=== PATIENT | female | born 1945 | race Caucasian/White ===

== ENCOUNTER → 2016-05-27 | Outpatient (CLI) | payer MEDICARE | END | disposition home or self-care (01) | LOC: LABWHC1 11:07 | PROVIDERS: ATTEND Surgery | DX: E21.3 Hyperparathyroidism, unspecified (principal); Z90.89 Acquired absence of other organs | CPT/HCPCS: 36415; 82310; 83970 ==

== ENCOUNTER → 2016-09-09 | Outpatient (CLI) | payer MEDICARE ==
--- NOTE | 2016-09-09 15:19 | XR ---
EXAMINATION TYPE: XR chest 2V DATE OF EXAM: 09/09/2016 COMPARISON: 12/11/2015 and 11/11/2014 HISTORY: 70-year-old female solitary pulmonary nodule TECHNIQUE: Frontal and lateral views FINDINGS: Heart is upper limits of normal in size. Aorta and pulmonary vasculature within normal limits. A 1.3 cm high density nodule persists at the right base without significant interval change. There may be c entral calcification present. No consolidation or pleural effusion. IMPRESSION: 1. Heart at the upper limits of normal in size. 2. Right basilar pulmonary nodule seems to have a central calcification and is relatively similar to 11/11/2014. Benign etiology such as a calcified granuloma is favored.
== END ==
LOC: RADXRMAIN 11:46
PROVIDERS: ATTEND Family Medicine
DX: R91.1 Solitary pulmonary nodule (principal)
CPT/HCPCS: 71020

== ENCOUNTER → 2017-01-20 | Outpatient (CLI) | payer MEDICARE ==
--- NOTE | 2017-01-20 13:07 | XR ---
EXAMINATION TYPE: XR Hip Bilateral and AP pelvis DATE OF EXAM: 01/20/2017 COMPARISON: NONE HISTORY: 71 year-old female right hip pain TECHNIQUE: AP view pelvis and 2 views each hip FINDINGS: Moderate uniform joint space narrowing within the left greater than right hips. There is prominent ma rginal spurring and subchondral sclerosis. Pubic symphysis and SI joints appear intact. No acute frac ture, subluxation, or dislocation. IMPRESSION: Moderate left greater than right bilateral hip osteoarthrosis. No acute osseous abnormality seen.
== END ==
LOC: RADXRMAIN 10:47
PROVIDERS: ATTEND Family Medicine
DX: M16.0 Bilateral primary osteoarthritis of hip (principal)
CPT/HCPCS: 73521

== ENCOUNTER → 2017-06-23 | Outpatient (CLI) | payer MEDICARE ==
--- NOTE | 2017-06-24 13:25 | MM ---
Reason for exam: screening (asymptomatic). Last mammogram was performed 1 year and 8 months ago. History: Patient is postmenopausal. Physical Findings: A clinical breast exam by your physician is recommended on an annual basis and results should be correlated with mammographic findings. MG 3D Screening Mammo W/Cad Bilateral CC and MLO view(s) were taken. Prior study comparison: October 17, 2015, bilateral MG screening mammo w CAD. There are scattered fibroglandular densities. No significant changes when compared with prior studies. ASSESSMENT: Negative, BI-RAD 1 RECOMMENDATION: Routine screening mammogram of both breasts in 1 year.
== END | disposition home or self-care (01) ==
LOC: RADMAMWWP 15:38
PROVIDERS: ATTEND Family Medicine
DX: Z12.31 Encounter for screening mammogram for malignant neoplasm of breast (principal)
CPT/HCPCS: 77063; 77067

== ENCOUNTER → 2017-06-23 | Outpatient (CLI) | payer MEDICARE ==
[2017-06-23 17:29] LABS: T4, Free (Free Thyroxine) 1.26 ng/dL (0.78-2.19)
== END | disposition home or self-care (01) ==
LOC: LABWHC1 15:56
PROVIDERS: ATTEND Psychiatry & Neurology Neurology
DX: G45.9 Transient cerebral ischemic attack, unspecified (principal)
CPT/HCPCS: 36415; 80061; 84439; 84443; 84481

== ENCOUNTER → 2018-01-31 | Outpatient (CLI) | payer MEDICARE ==
[2018-01-31 11:53] LABS: Basophils # (A) 0.1 k/uL (0-0.2); Basophils % (A) 1 %; Eosinophils # (A) 0.1 k/uL (0-0.7); Eosinophils % (A) 1 %; HCT 44.4 % (34.0-46.0); HGB 14.1 gm/dL (11.4-16.0); Lymphocytes # (A) 1.9 k/uL (1.0-4.8); Lymphocytes % (A) 28 %; MCH 28.6 pg (25.0-35.0); MCHC 31.8 g/dL (31.0-37.0); MCV 89.9 fL (80.0-100.0); Monocytes # (A) 0.3 k/uL (0-1.0); Monocytes % (A) 4 %; Neutrophils # (A) 4.2 k/uL (1.3-7.7); Neutrophils % (A) 64 %; Platelet Count 222 k/uL (150-450); RBC 4.94 m/uL (3.80-5.40); RDW 13.2 % (11.5-15.5); WBC 6.6 k/uL (3.8-10.6)
--- NOTE | 2018-01-31 12:06 | XR ---
EXAMINATION TYPE: XR chest 2V DATE OF EXAM: 01/31/2018 COMPARISON: 09/09/16 HISTORY: Shortness of breath TECHNIQUE: Frontal and lateral views of the chest are obtained. FINDINGS: Scattered senescent parenchymal changes noted. Hyperinflation compatible with COPD. Stable right lowe r lobe granuloma. No evidence for infiltrate. No evidence for atelectasis. Heart size is stable. Mediastinal structures are stable and grossly unremarkable. No evidence for hilar prominence. Degenerative changes dorsal spine. IMPRESSION: 1. No evidence for acute pulmonary disease.
[2018-01-31 12:10] LABS: Albumin 4.3 g/dL (3.5-5.0); Calcium 9.7 mg/dL (8.4-10.2); Potassium 4.5 mmol/L (3.5-5.1); Total Bilirubin 0.5 mg/dL (0.2-1.3)
[2018-01-31 12:35] LABS: Partial Thromboplastin Time 24.1 sec (22.0-30.0); Prothrombin Time 9.7 sec (9.0-12.0)
== END | disposition home or self-care (01) ==
LOC: RADXRMAIN 11:10
PROVIDERS: ATTEND Family Medicine
DX: Z01.818 Encounter for other preprocedural examination (principal); Z01.812 Encounter for preprocedural laboratory examination
CPT/HCPCS: 36415; 71046; 80053; 85025; 85610; 85730

== ENCOUNTER → 2018-02-07 | Outpatient (CLI) | payer MEDICARE | END | disposition home or self-care (01) | LOC: LABPAT 10:54 | PROVIDERS: ATTEND Orthopaedic Surgery | DX: Z01.812 Encounter for preprocedural laboratory examination (principal); M16.11 Unilateral primary osteoarthritis, right hip | CPT/HCPCS: 36415; 86850; 86900; 86901; 87070 ==

== ENCOUNTER 2020-07-31 10:23 | Emergency (ER) | payer MEDICARE ==
[2020-07-31 10:34] VITALS: RESP 18; TEMP 97.8
--- NOTE | 2020-07-31 11:13 | ED ---
Recheck HPI - General Chief Complaint: Recheck/Abnormal Lab/Rx Stated Complaint: lab recheck/feels off Time Seen by Provider: 07/31/20 10:45 Source: patient, family Mode of arrival: ambulatory Limitations: no limitations - History of Present Illness Initial Comments: 74-year-old female with history of COPD, CVA, CAD, electrolyte imbalance, presents to the emergency department with a chief complaint of "feeling off". States her symptoms began about one day ago and she feels like there is achiness in her legs and arms. Patient states it is difficult to explain her feeling but she's had this twice before and her electrolyte levels were imbalance. States her calcium level was affected. States she recently had her parathyroid hormone checked and it was elevated. States she had parathyroid surgery at the [facility]. She denies any chest pain, shortness of breath, one- sided weakness or paresthesias. Patient states there is no headaches, visual changes, chest pain or shortness of breath. Denies any obstructive or infectious urinary symptoms. Denies fevers or chills. Had covid-19ld vaccine in April. Daughter is concerned that the patient is experiencing anxiety and has stopped taking her anxiolytics. Patient has been going through quite a bit of stress over the last year - Related Data Home Medications Medication Instructions Recorded Confirmed amLODIPine BESYLATE [Norvasc] 5 mg PO BID 10/14/15 07/31/20 Citalopram Hydrobromide [CeleXA] 40 mg PO DAILY 02/23/17 07/31/20 Omeprazole 20 mg PO DAILY 02/23/17 07/31/20 Atorvastatin [Lipitor] 40 mg PO HS 07/31/20 07/31/20 Previous Rx's Medication Instructions Recorded Clopidogrel [Plavix] 75 mg PO DAILY #30 tab 02/24/17 Allergies Allergy/AdvReac Type Severity Reaction Status Date / Time zolpidem tartrate AdvReac Severe Hallucinati Verified 07/31/20 11:12 [From Marlene] ons Review of Systems ROS Statement: Those systems with pertinent positive or pertinent negative responses have been documented in the HPI. ROS Other: All systems not noted in ROS Statement are negative. Past Medical History Past Medical History: Coronary Artery Disease (CAD), Chest Pain / Angina, COPD, Hypertension, Syncope, Thyroid Disorder Additional Past Medical History / Comment(s): thyroid nodules, high calcium Last Myocardial Infarction Date:: 12/2014 History of Any Multi-Drug Resistant Organisms: None Reported Past Surgical History: Heart Catheterization With Stent Additional Past Surgical History / Comment(s): cyst removed from back, heart cath with a stent placed 12/2014. parathyroid removal Past Anesthesia/Blood Transfusion Reactions: No Reported Reaction Date of Last Stent Placement:: 12/03/2014 Past Psychological History: Anxiety, Depression Smoking Status: Current every day smoker Past Alcohol Use History: Occasional, Rare Past Drug Use History: None Reported - Past Family History Father Family Medical History: No Reported History Additional Family Medical History / Comment(s): FATHER AT AGE 70. PT UNSURE WHAT EXACTLY HE FROM. Mother Family Medical History: Congestive Heart Failure (CHF) Additional Family Medical History / Comment(s): MOTHER AT AGE 91 YRS. General Exam Limitations: no limitations Course Vital Signs 07/31/20 07/31/20 07/31/20 10:28 12:30 14:10 Temperature 97.8 F 97.8 F Pulse Rate 75 54 L 70 Respiratory 18 18 18 Rate Blood Pressure 188/63 157/88 142/76 O2 Sat by Pulse 96 96 96 Oximetry Medical Decision Making - Medical Decision Making 74-year-old female with history of COPD, CVA, CAD, electrolyte imbalance, presents to the emergency department with a chief complaint of "feeling off". On physical examination, patient is slightly anxious but is otherwise resting comfortably and answering questions appropriately. CBC, CMP and UA unremarkable. EKG showing no acute findings. A lateral imbalance is noted. Parathyroid hormone levels pending. No acute findings at this time there was just any requirements for admission. Patient does not have chest pain shortness of breath headaches or any focal deficits. Patient states she will follow up with her primary care physician tonight or tomorrow morning. Return p arameters were discussed with patient was understanding and agreeable. Case discussed with - Lab Data Result diagrams: 07/31/20 11:08 07/31/20 11:08 Lab Results 07/31/20 07/31/20 07/31/20 Range/Units 11:08 11:08 11:08 WBC 10.7 H (3.8-10.6) k/uL RBC 5.41 H (3.80-5.40) m/uL Hgb 15.0 (11.4-16.0) gm/dL Hct 47.3 H (34.0-46.0) % MCV 87.5 (80.0-100.0) fL MCH 27.8 (25.0-35.0) pg MCHC 31.7 (31.0-37.0) g/dL RDW 13.8 (11.5-15.5) % Plt Count 217 (150-450) k/uL MPV 9.0 Neutrophils % 80 % Lymphocytes % 15 % Monocytes % 3 % Eosinophils % 1 % Basophils % 1 % Neutrophils # 8.6 H (1.3-7.7) k/uL Lymphocytes # 1.6 (1.0-4.8) k/uL Monocytes # 0.3 (0-1.0) k/uL Eosinophils # 0.1 (0-0.7) k/uL Basophils # 0.1 (0-0.2) k/uL Sodium 139 (137-145) mmol/L Potassium 4.8 (3.5-5.1) mmol/L Chloride 104 (98-107) mmol/L Carbon Dioxide 27 (22-30) mmol/L Anion Gap 8 mmol/L BUN 15 (7-17) mg/dL Creatinine 0.77 (0.52-1.04) mg/dL Est GFR (CKD-EPI)AfAm 87 (>60 ml/min/1.73 sqM) Est GFR (CKD-EPI)NonAf 75 (>60 ml/min/1.73 sqM) Glucose 108 H (74-99) mg/dL Calcium 10.1 (8.4-10.2) mg/dL Phosphorus 3.5 (2.5-4.5) mg/dL Magnesium 2.0 (1.6-2.3) mg/dL Total Bilirubin 0.6 (0.2-1.3) mg/dL AST 26 (14-36) U/L ALT 15 (4-34) U/L Alkaline Phosphatase 126 (38-126) U/L Troponin I (0.000-0.034) ng/mL Total Protein 7.3 (6.3-8.2) g/dL Albumin 4.7 (3.5-5.0) g/dL Urine Color Light Yellow Urine Appearance Clear (Clear) Urine pH 6.0 (5.0-8.0) Ur Specific [place] 1.005 (1.001-1.035) Urine Protein Negative (Negative) Urine Glucose (UA) Negative (Negative) Urine Ketones Negative (Negative) Urine Blood Negative (Negative) Urine Nitrite Negative (Negative) Urine Bilirubin Negative (Negative) Urine Urobilinogen <2.0 (<2.0) mg/dL Ur Leukocyte Esterase Moderate H (Negative) Urine RBC <1 (0-5) /hpf Urine WBC <1 (0-5) /hpf Ur Squamous Epith Cells <1 (0-4) /hpf 07/31/20 Range/Units 11:08 WBC (3.8-10.6) k/uL RBC (3.80-5.40) m/uL Hgb (11.4-16.0) gm/dL Hct (34.0-46.0) % MCV (80.0-100.0) fL MCH (25.0-35.0) pg MCHC (31.0-37.0) g/dL RDW (11.5-15.5) % Plt Count (150-450) k/uL MPV Neutrophils % % Lymphocytes % % Monocytes % % Eosinophils % % Basophils % % Neutrophils # (1.3-7.7) k/uL Lymphocytes # (1.0-4.8) k/uL Monocytes # (0-1.0) k/uL Eosinophils # (0-0.7) k/uL Basophils # (0-0.2) k/uL Sodium (137-145) mmol/L Potassium (3.5-5.1) mmol/L Chloride (98-107) mmol/L Carbon Dioxide (22-30) mmol/L Anion Gap mmol/L BUN (7-17) mg/dL Creatinine (0.52-1.04) mg/dL Est GFR (CKD-EPI)AfAm (>60 ml/min/1.73 sqM) Est GFR (CKD-EPI)NonAf (>60 ml/min/1.73 sqM) Glucose (74-99) mg/dL Calcium (8.4-10.2) mg/dL Phosphorus (2.5-4.5) mg/dL Magnesium (1.6-2.3) mg/dL Total Bilirubin (0.2-1.3) mg/dL AST (14-36) U/L ALT (4-34) U/L Alkaline Phosphatase (38-126) U/L Troponin I <0.012 (0.000-0.034) ng/mL Total Protein (6.3-8.2) g/dL Albumin (3.5-5.0) g/dL Urine Color Urine Appearance (Clear) Urine pH (5.0-8.0) Ur Specific [place] (1.001-1.035) Urine Protein (Negative) Urine Glucose (UA) (Negative) Urine Ketones (Negative) Urine Blood (Negative) Urine Nitrite (Negative) Urine Bilirubin (Negative) Urine Urobilinogen (<2.0) mg/dL Ur Leukocyte Esterase (Negative) Urine RBC (0-5) /hpf Urine WBC (0-5) /hpf Ur Squamous Epith Cells (0-4) /hpf Disposition Clinical Impression: Generalized body aches Disposition: HOME SELF-CARE Condition: Stable Instructions (If sedation given, give patient instructions): Parathyroid Hormone (By injection), Hypocalcemia (ED) Additional Instructions: Follow-up with her primary care physician. Return to emergency department if symptoms worsen. Is patient prescribed a controlled substance at d/c from ED?: No Referrals: Miladis Blanton MD [Primary Care Provider] - 1-2 days Time of Disposition: 13:44
[2020-07-31 11:30] LABS: Basophils # (A) 0.1 k/uL (0-0.2); Basophils % (A) 1 %; Eosinophils # (A) 0.1 k/uL (0-0.7); Eosinophils % (A) 1 %; HCT 47.3 % (34.0-46.0); Lymphocytes # (A) 1.6 k/uL (1.0-4.8); Lymphocytes % (A) 15 %; MCH 27.8 pg (25.0-35.0); MCHC 31.7 g/dL (31.0-37.0); MCV 87.5 fL (80.0-100.0); Monocytes # (A) 0.3 k/uL (0-1.0); Monocytes % (A) 3 %; Neutrophils # (A) 8.6 k/uL (1.3-7.7); Neutrophils % (A) 80 %; Platelet Count 217 k/uL (150-450); RBC 5.41 m/uL (3.80-5.40); RDW 13.8 % (11.5-15.5); WBC 10.7 k/uL (3.8-10.6)
[2020-07-31 11:57] LABS: Albumin 4.7 g/dL (3.5-5.0); Appearance,Urine Clear (Clear); Bilirubin,Urine Negative (Negative); Blood,Urine Negative (Negative); Calcium 10.1 mg/dL (8.4-10.2); Color,Urine Light Yellow; Glucose,Urine (UA) Negative (Negative); Ketones,Urine Negative (Negative); Leukocyte Esterase,Urine Moderate (Negative); Nitrite,Urine Negative (Negative); Protein,Urine Negative (Negative); RBC,Urine <1 /hpf (0-5); Specific Gravity,Urine 1.005 (1.001-1.035); Squamous Epithelial Cell,Urine <1 /hpf (0-4); Total Bilirubin 0.6 mg/dL (0.2-1.3); Total Protein 7.3 g/dL (6.3-8.2); Urobilinogen,Urine <2.0 mg/dL (<2.0); WBC,Urine <1 /hpf (0-5)
[2020-07-31 12:05] LABS: Phosphorus 3.5 mg/dL (2.5-4.5); Potassium 4.8 mmol/L (3.5-5.1)
[2020-07-31 14:11] VITALS: BP 142/76; PULSE 70
== END 2020-07-31 14:11 | disposition home or self-care (01) ==
LOC: EC 10:23
DX: M79.10 Myalgia, unspecified site (principal); I25.10 Atherosclerotic heart disease of native coronary artery without angina pectoris; J44.9 Chronic obstructive pulmonary disease, unspecified; F17.200 Nicotine dependence, unspecified, uncomplicated; I10 Essential (primary) hypertension; E07.9 Disorder of thyroid, unspecified; Z95.5 Presence of coronary angioplasty implant and graft
CPT/HCPCS: 36415; 80053; 81001; 83735; 83970; 84100; 84484; 85025; 93005; 99283

== ENCOUNTER 2020-08-17 00:52 | Inpatient (IN) | payer MEDICARE ==
[2020-08-17 01:43] LABS: Basophils # (A) 0.1 k/uL (0-0.2); Basophils % (A) 1 %; Eosinophils # (A) 0.1 k/uL (0-0.7); Eosinophils % (A) 1 %; HCT 40.8 % (34.0-46.0); HGB 13.8 gm/dL (11.4-16.0); Lymphocytes # (A) 1.8 k/uL (1.0-4.8); Lymphocytes % (A) 20 %; MCH 29.2 pg (25.0-35.0); MCHC 33.9 g/dL (31.0-37.0); Mean Platelet Volume 8.9; Monocytes # (A) 0.5 k/uL (0-1.0); Monocytes % (A) 6 %; Neutrophils # (A) 6.5 k/uL (1.3-7.7); Neutrophils % (A) 72 %; Platelet Count 196 k/uL (150-450); RBC 4.75 m/uL (3.80-5.40); RDW 13.5 % (11.5-15.5); WBC 9.1 k/uL (3.8-10.6)
--- NOTE | 2020-08-17 01:46 | XR ---
EXAM: XR Chest, 2 Views CLINICAL HISTORY: ITS.REASON XR Reason: dysrhythmia TECHNIQUE: Frontal and lateral views of the chest. COMPARISON: 01/31/2018. FINDINGS: Lungs: A 0.8 cm calcified granuloma at the right lung base is noted, unchanged. No consolidative changes. Pleural space: No pleural effusions. No pneumothorax. Heart: Mild cardiomegaly. Mediastinum: Unremarkable. Bones/joints: Osteopenia. Moderate degenerative disc disease of the thoracic spine. IMPRESSION: 1. Cardiomegaly. 2. Osteopenia. 3. Calcified granuloma at the periphery of the right lung base, stable.
[2020-08-17 01:52] LABS: Albumin 4.2 g/dL (3.5-5.0); Calcium 9.8 mg/dL (8.4-10.2); Magnesium 1.9 mg/dL (1.6-2.3); Potassium 4.1 mmol/L (3.5-5.1); Total Bilirubin 0.3 mg/dL (0.2-1.3); Total Protein 6.5 g/dL (6.3-8.2)
[2020-08-17 02:11] LABS: INR 0.9 (<1.2); Partial Thromboplastin Time 22.2 sec (22.0-30.0); Prothrombin Time 9.8 sec (9.0-12.0)
[2020-08-17] MEDS ORDERED: ACETAMINOPHEN TAB 325 MG TAB PO PRN (04:08)
[2020-08-17] MEDS ORDERED: NALOXONE 0.4 MG/ML 1 ML VIAL IV PRN (04:08)
--- NOTE | 2020-08-17 04:55 | CT ---
EXAM: CT Head Without Intravenous Contrast CLINICAL HISTORY: ITS.REASON CT Reason: altered mental status TECHNIQUE: Axial computed tomography images of the head/brain without intravenous contrast. CTDI is 49.2 mGy and DLP is 1145.4 mGy-cm. This CT exam was performed using one or more of the following dose reduction techniques: automated exposure control, adjustment of the mA and/or kV according to patient size, and/or use of iterative reconstruction technique. COMPARISON: No relevant prior studies available. FINDINGS: Brain: Unremarkable. No hemorrhage. No significant white matter disease. No edema. Ventricles: Unremarkable. No ventriculomegaly. Bones/joints: Unremarkable. No acute fracture. Soft tissues: Unremarkable. Sinuses: Unremarkable as visualized. No acute sinusitis. Mastoid air cells: Unremarkable as visualized. No mastoid effusion. IMPRESSION: No acute intracranial process
--- NOTE | 2020-08-17 05:00 | ED ---
Altered Mental Status HPI - General Chief Complaint: Arrhythmia/Palpitations Stated Complaint: Palpitations Time Seen by Provider: 08/17/20 01:11 Source: patient Mode of arrival: ambulatory Limitations: no limitations - History of Present Illness MD Complaint: altered mental status, confusion -: days(s) Severity: moderate Consistency of Symptoms: getting worse Associated Symptoms: other (Palpitations) - Related Data Home Medications Medication Instructions Recorded Confirmed amLODIPine BESYLATE [Norvasc] 5 mg PO BID 10/14/15 08/17/20 Citalopram Hydrobromide [CeleXA] 40 mg PO DAILY 02/23/17 08/17/20 Omeprazole 20 mg PO DAILY 02/23/17 08/17/20 Atorvastatin [Lipitor] 40 mg PO HS 07/31/20 08/17/20 Ergocalciferol [Vitamin D2 (1250 1,250 mcg PO FR 08/17/20 08/17/20 Mcg = 37216 Iu)] Melatonin 20 mg PO HS PRN 08/17/20 08/17/20 Previous Rx's Medication Instructions Recorded Clopidogrel [Plavix] 75 mg PO DAILY #30 tab 02/24/17 Allergies Allergy/AdvReac Type Severity Reaction Status Date / Time zolpidem tartrate AdvReac Severe Hallucinati Verified 08/17/20 09:40 [From Marlene] ons Review of Systems ROS Statement: Those systems with pertinent positive or pertinent negative responses have been documented in the HPI. ROS Other: All systems not noted in ROS Statement are negative. Constitutional: Denies: fever, chills, weakness Eyes: Denies: vision change Respiratory: Denies: cough, dyspnea Cardiovascular: Reports: palpitations. Denies: chest pain, orthopnea, edema, syncope Gastrointestinal: Denies: abdominal pain, nausea, vomiting, diarrhea Genitourinary: Denies: dysuria, hematuria Musculoskeletal: Denies: back pain Skin: Denies: rash Neurological: Denies: headache Past Medical History Past Medical History: Coronary Artery Disease (CAD), Chest Pain / Angina, COPD, Hypertension, Syncope, Thyroid Disorder Additional Past Medical History / Comment(s): parathyroid nodules, high calcium Last Myocardial Infarction Date:: 12/2014 History of Any Multi-Drug Resistant Organisms: None Reported Past Surgical History: Heart Catheterization With Stent Additional Past Surgical History / Comment(s): cyst removed from back, heart cath with a stent placed 12/2014. parathyroid removal Past Anesthesia/Blood Transfusion Reactions: No Reported Reaction Date of Last Stent Placement:: 12/03/2014 Past Psychological History: Anxiety, Depression Smoking Status: Current some day smoker Past Alcohol Use History: Occasional, Rare Past Drug Use History: None Reported - Past Family History Father Family Medical History: No Reported History Additional Family Medical History / Comment(s): FATHER AT AGE 70. PT UNSURE WHAT EXACTLY HE FROM. Mother Family Medical History: Congestive Heart Failure (CHF) Additional Family Medical History / Comment(s): MOTHER AT AGE 91 YRS. General Exam Limitations: no limitations General appearance: alert, in no apparent distress Head exam: Present: atraumatic, normocephalic Eye exam: Present: normal appearance. Absent: scleral icterus, conjunctival injection ENT exam: Present: mucous membranes dry Neck exam: Present: normal inspection, full ROM Respiratory exam: Present: normal lung sounds bilaterally. Absent: respiratory distress, wheezes, rales, rhonchi, stridor Cardiovascular Exam: Present: regular rate, irregular rhythm, normal heart sounds. Absent: systolic murmur, diastolic murmur, rubs, gallop GI/Abdominal exam: Present: soft. Absent: distended, tenderness, guarding, rebound Extremities exam: Present: normal inspection, normal capillary refill. Absent: pedal edema, calf tenderness Back exam: Present: normal inspection. Absent: CVA tenderness (R), CVA tenderness (L) Neurological exam: Present: alert, CN II-XII intact. Absent: oriented X3 (Patient oriented to person and place could not state the date), motor sensory deficit Skin exam: Present: warm, dry, intact, normal color. Absent: rash Course Vital Signs 08/17/20 08/17/20 00:55 04:31 Pulse Rate 72 84 Respiratory 19 18 Rate Blood Pressure 156/84 152/83 O2 Sat by Pulse 97 98 Oximetry Medical Decision Making - Medical Decision Making Patient is 74-year-old woman brought to have evaluation for palpitations as well as altered mental status. There are no focal neurologic deficits, and at this point the differential does appear to be most likely some progressive dementia versus delirium. The patient will be admitted to have neurology consultation as well as psychiatric evaluation for further input. - Lab Data Result diagrams: 08/18/20 04:30 08/18/20 04:30 Lab Results 08/17/20 08/17/20 08/17/20 Range/Units 01:11 01:19 01:19 WBC 9.1 (3.8-10.6) k/uL RBC 4.75 (3.80-5.40) m/uL Hgb 13.8 (11.4-16.0) gm/dL Hct 40.8 (34.0-46.0) % MCV 86.0 (80.0-100.0) fL MCH 29.2 (25.0-35.0) pg MCHC 33.9 (31.0-37.0) g/dL RDW 13.5 (11.5-15.5) % Plt Count 196 (150-450) k/uL MPV 8.9 Neutrophils % 72 % Lymphocytes % 20 % Monocytes % 6 % Eosinophils % 1 % Basophils % 1 % Neutrophils # 6.5 (1.3-7.7) k/uL Lymphocytes # 1.8 (1.0-4.8) k/uL Monocytes # 0.5 (0-1.0) k/uL Eosinophils # 0.1 (0-0.7) k/uL Basophils # 0.1 (0-0.2) k/uL PT 9.8 (9.0-12.0) sec INR 0.9 (<1.2) APTT 22.2 (22.0-30.0) sec Sodium (137-145) mmol/L Potassium (3.5-5.1) mmol/L Chloride (98-107) mmol/L Carbon Dioxide (22-30) mmol/L Anion Gap mmol/L BUN (7-17) mg/dL Creatinine (0.52-1.04) mg/dL Est GFR (CKD-EPI)AfAm (>60 ml/min/1.73 sqM) Est GFR (CKD-EPI)NonAf (>60 ml/min/1.73 sqM) Glucose (74-99) mg/dL Calcium (8.4-10.2) mg/dL Magnesium (1.6-2.3) mg/dL Total Bilirubin (0.2-1.3) mg/dL AST (14-36) U/L ALT (4-34) U/L Alkaline Phosphatase (38-126) U/L Troponin I (0.000-0.034) ng/mL Total Protein (6.3-8.2) g/dL Albumin (3.5-5.0) g/dL TSH (0.465-4.680) mIU/L Urine Color Yellow Urine Appearance Clear (Clear) Urine pH 6.0 (5.0-8.0) Ur Specific [place] 1.018 (1.001-1.035) Urine Protein Negative (Negative) Urine Glucose (UA) Negative (Negative) Urine Ketones Negative (Negative) Urine Blood Negative (Negative) Urine Nitrite Negative (Negative) Urine Bilirubin Negative (Negative) Urine Urobilinogen <2.0 (<2.0) mg/dL Ur Leukocyte Esterase Large H (Negative) Urine RBC 1 (0-5) /hpf Urine WBC 25 H (0-5) /hpf Ur Squamous Epith Cells 1 (0-4) /hpf Urine Bacteria Rare H (None) /hpf Hyaline Casts 1 (0-2) /lpf Urine Mucus Few H (None) /hpf Coronavirus (PCR) (Not Detectd) 08/17/20 08/17/20 08/17/20 Range/Units 01:19 01:19 04:31 WBC (3.8-10.6) k/uL RBC (3.80-5.40) m/uL Hgb (11.4-16.0) gm/dL Hct (34.0-46.0) % MCV (80.0-100.0) fL MCH (25.0-35.0) pg MCHC (31.0-37.0) g/dL RDW (11.5-15.5) % Plt Count (150-450) k/uL MPV Neutrophils % % Lymphocytes % % Monocytes % % Eosinophils % % Basophils % % Neutrophils # (1.3-7.7) k/uL Lymphocytes # (1.0-4.8) k/uL Monocytes # (0-1.0) k/uL Eosinophils # (0-0.7) k/uL Basophils # (0-0.2) k/uL PT (9.0-12.0) sec INR (<1.2) APTT (22.0-30.0) sec Sodium 137 (137-145) mmol/L Potassium 4.1 (3.5-5.1) mmol/L Chloride 103 (98-107) mmol/L Carbon Dioxide 28 (22-30) mmol/L Anion Gap 6 mmol/L BUN 16 (7-17) mg/dL Creatinine 0.94 (0.52-1.04) mg/dL Est GFR (CKD-EPI)AfAm 68 (>60 ml/min/1.73 sqM) Est GFR (CKD-EPI)NonAf 59 (>60 ml/min/1.73 sqM) Glucose 119 H (74-99) mg/dL Calcium 9.8 (8.4-10.2) mg/dL Magnesium 1.9 (1.6-2.3) mg/dL Total Bilirubin 0.3 (0.2-1.3) mg/dL AST 21 (14-36) U/L ALT 10 (4-34) U/L Alkaline Phosphatase 117 (38-126) U/L Troponin I <0.012 (0.000-0.034) ng/mL Total Protein 6.5 (6.3-8.2) g/dL Albumin 4.2 (3.5-5.0) g/dL TSH 2.870 (0.465-4.680) mIU/L Urine Color Urine Appearance (Clear) Urine pH (5.0-8.0) Ur Specific [place] (1.001-1.035) Urine Protein (Negative) Urine Glucose (UA) (Negative) Urine Ketones (Negative) Urine Blood (Negative) Urine Nitrite (Negative) Urine Bilirubin (Negative) Urine Urobilinogen (<2.0) mg/dL Ur Leukocyte Esterase (Negative) Urine RBC (0-5) /hpf Urine WBC (0-5) /hpf Ur Squamous Epith Cells (0-4) /hpf Urine Bacteria (None) /hpf Hyaline Casts (0-2) /lpf Urine Mucus (None) /hpf Coronavirus (PCR) Not Detected (Not Detectd) - EKG Data -: EKG Interpreted by Me EKG shows normal: sinus rhythm (With sinus arrhythmia, rate 65 bpm), axis (Normal), intervals (Normal), QRS complexes (Normal) Rate: normal Interpretation: nonspecific ST-T wave changes Disposition Clinical Impression: Change in mental status Disposition: ADMITTED IP TO THIS [facility] Condition: Fair
[2020-08-17] MEDS: SODIUM CHLORIDE 0.9% 1,000 ML IV SCH (05:53)
[2020-08-17 06:28] LABS: Appearance,Urine Clear (Clear); Bacteria,Urine Rare /hpf; Bilirubin,Urine Negative (Negative); Blood,Urine Negative (Negative); Color,Urine Yellow; Glucose,Urine (UA) Negative (Negative); Hyaline Casts,Urine 1 /lpf (0-2); Ketones,Urine Negative (Negative); Leukocyte Esterase,Urine Large (Negative); Mucus,Urine Few /hpf; Nitrite,Urine Negative (Negative); Protein,Urine Negative (Negative); RBC,Urine 1 /hpf (0-5); Specific Gravity,Urine 1.018 (1.001-1.035); Squamous Epithelial Cell,Urine 1 /hpf (0-4); Urobilinogen,Urine <2.0 mg/dL (<2.0); WBC,Urine 25 /hpf (0-5)
[2020-08-17] MEDS ORDERED: FAMOTIDINE 20 MG TAB PO SCH (09:00)
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
--- NOTE | 2020-08-17 12:52 | P.CNNES ---
History of Present Illness Consult date: 08/17/20 Requesting physician: Jorge Kitchen Reason for Consult: altered mental status History of Present Illness: This is a 74-year-old woman with medical history of coronary artery disease, hypertension who presented emergency department on the 08/17/2020 for altered mental status. History was obtained from the medical record and the patient nurse since the patient's had a hard time to give me a good thorough history. According to the patient nurse she stated that she spoke with the patient's daughter and that she was told for the last 1 week she's a having visual hallucination of her son who is for the past 1 year. Upon talk to the patient she was tell me that about her having thoughts for the last couple days that her friend "Jazmin" is about to come and kill her but then within a minute or 2 she told me that her friend does not her to fly and she'll not never do that to her. Per the ED notes it is mentioned that the patient was also complaining of palpitation. Some of the workup consisted of: Initial vital signs: Blood pressure of 156/84, heart rate of 72, respiratory of 19, initial temperature of 98.2 Fahrenheit and pulse ox of 97% at room air. CT of the head is reported as no acute intracranial process. Personally reviewed the CT of the head and I felt the patient had [id number] the b ilateral frontal atrophy and I felt it slightly more than appropriate for her age. EKG is reported as sinus rhythm with markedly sinus arrhythmia. Nonspecific ST abnormality. Abnormal EKG. White blood cell is 9.2 which is normal. The basic chemistry panel is reviewed and seems unremarkable. The glucose is 119. TSH is 2.87. Chest x-ray is reported as cardiomegaly. Osteopenia. Calcified granuloma at the periphery of the right lung base. Stable Urinalysis is positive for large leukocyte esterase, urine white blood cells 25, urine bacteria was rare. Black virus PCR was not detected. Review of Systems Review of system: The 12 point system was reviewed and apparent positive and negative per HPI. Past Medical History Past Medical History: Coronary Artery Disease (CAD), Chest Pain / Angina, COPD, Hypertension, Syncope, Thyroid Disorder Additional Past Medical History / Comment(s): parathyroid nodules, high calcium Last Myocardial Infarction Date:: 12/2014 History of Any Multi-Drug Resistant Organisms: None Reported Past Surgical History: Heart Catheterization With Stent Additional Past Surgical History / Comment(s): cyst removed from back, heart cath with a stent placed 12/2014. parathyroid removal Past Anesthesia/Blood Transfusion Reactions: No Reported Reaction Date of Last Stent Placement:: 12/03/2014 Past Psychological History: Anxiety, Depression Smoking Status: Current some day smoker Past Alcohol Use History: Occasional, Rare Past Drug Use History: None Reported - Past Family History Father Family Medical History: No Reported History Additional Family Medical History / Comment(s): FATHER AT AGE 70. PT UNSURE WHAT EXACTLY HE FROM. Mother Family Medical History: Congestive Heart Failure (CHF) Additional Family Medical History / Comment(s): MOTHER AT AGE 91 YRS. Medications and Allergies Home Medications Medication Instructions Recorded Confirmed Type amLODIPine BESYLATE [Norvasc] 5 mg PO BID 10/14/15 08/17/20 History Citalopram Hydrobromide [CeleXA] 40 mg PO DAILY 02/23/17 08/17/20 History Omeprazole 20 mg PO DAILY 02/23/17 08/17/20 History Clopidogrel [Plavix] 75 mg PO DAILY #30 tab 02/24/17 08/17/20 Rx Atorvastatin [Lipitor] 40 mg PO HS 07/31/20 08/17/20 History Ergocalciferol [Vitamin D2 (1250 1,250 mcg PO FR 08/17/20 08/17/20 History Mcg = 73711 Iu)] Melatonin 20 mg PO HS PRN 08/17/20 08/17/20 History Allergies Allergy/AdvReac Type Severity Reaction Status Date / Time zolpidem tartrate AdvReac Severe Hallucinati Verified 08/17/20 09:40 [From Marlene] ons Physical Examination - Vital Signs Vital Signs: Vital Signs Temp Pulse Pulse Resp BP BP Pulse Ox 08/17/20 07:45 97.7 F 52 L 16 159/75 94 L 08/17/20 05:10 98.2 F 61 20 147/76 93 L 08/17/20 04:31 84 18 152/83 98 08/17/20 00:55 72 19 156/84 97 Intake and Output 08/16/20 08/17/20 08/17/20 22:59 06:59 14:59 Other: # Voids 1 Weight 76.657 kg GENERAL: The patient is lying in bed and is not in acute distress. CHEST: The heart rate is regular rate rhythm. No murmurs to auscultation. No carotid bruit bilaterally. LUNG: Clear to auscultation bilaterally no wheezing noted throughout. Not labored breathing. ABDOMEN/GI: Bowel sounds present in all 4 quadrants. No tenderness to palpation throughout. NEUROLOGICAL: Higher mental function: The patient is awake, alert, oriented to self, place and time. She correctly stated the state was [place]. Patient is following simple and complex commands. No aphasia and no neglect. Cranial nerves: The pupils are round, equal and reactive to light and accommodation. Visual massey are full to confrontation throughout. Extraocular movement is intact no nystagmus is noted. Facial sensation is normal to touch throughout. The facial strength is normal throughout. Hearing is normal bilaterally to hand rub. Tongue is midline and moved [id number] without any difficulty. No dysarthria is noted. Shoulder shrug is normal bilaterally. Motor: Gait is deferred. The strength is 5 over 5 throughout. Normal tone and bulk. Cerebellum: Normal finger to nose heel to chin bilaterally. Sensation: Sensation is normal to touch throughout. Reflexes (right/left): 2+ throughout. Plantars are downgoing bilaterally. Results - Laboratory Findings CBC and BMP: 08/17/20 01:19 08/17/20 01:19 Abnormal Lab Findings: Abnormal Labs 08/17/20 08/17/20 01:11 01:19 Glucose 119 H Ur Leukocyte Esterase Large H Urine WBC 25 H Urine Bacteria Rare H Urine Mucus Few H Assessment and Plan Assessment: Altered mental status for the past one weeks (having visual hallucination of her son who is for the past one year and having thought that her friend is going to harm her in the past couple month): Possibly delirium (especially with underlying UTI). I feel the patient possibly has underlying cognitive impairment/dementia Septic encephalopathy from underlying UTI Acute urinary tract infection Calcified granuloma at the periphery of the right lung base Per CXR Plan: * CT of the head is reported as no acute intracranial process. Personally reviewed the CT of the head and I felt the patient had [id number] the bilateral frontal atrophy and I felt it slightly more than appropriate for her age. * EKG is reported as sinus rhythm with markedly sinus arrhythmia. Nonspecific ST abnormality. Abnormal EKG. * TSH is 2.87. * Chest x-ray is reported as cardiomegaly. Osteopenia. Calcified granuloma at the periphery of the right lung base. Stable. * I ordered vitamin B12, folate, methylmalonic acid, Vitamin B6 level and mer ine level * I ordered MRI of the brain w/ and w/o especially because of the history of calcified granuloma to rule out any intracranial lesion/process affecting patient's mentation. * Ordered routine EEG and will not start the patient on anti-epileptic drug unless there is epileptiform discharges or seizure on the EEG. * The ED team consulted also psychiatry. * On discharge I recommend the patient to follow-up with a neurologist as outpatient for further workup of cognitive impairment/dementia within 1-2 weeks. * I will defer the rest of medical management to the primary team. * Will attempt to speak with the patient's daughter. The plan is discussed with the patient's nurse. Thank you for the consultation. Dr. Pollard will take over neurology service tomorrow AM (08/18/2020). Amari Pollard M.D. Neuro-hospitalist Time with Patient: Greater than 30
[2020-08-17] MEDS ORDERED: ALPRAZolam 0.25 MG TAB PO PRN (14:00)
[2020-08-17] MEDS ORDERED: TEMAZEPAM 15 MG CAP PO PRN (14:02)
--- NOTE | 2020-08-17 15:04 | HP ---
HISTORY AND PHYSICAL DATE OF SERVICE: 08/17/2020 CHIEF COMPLAINT: Change in mental status and confusion. HISTORY OF PRESENT ILLNESS: This 74-year-old woman with a past medical history of multiple medical problems including: CAD, chest pain, history of COPD, hypertension, syncope, history of parathyroid nodes, high calcium, anxiety, depression being followed by Dr. Blanton in the outpatient setting apparently was admitted with confusion and some change in mental status. She apparently went for dinner, ate a steak and some other things and subsequently patient was confused. The patient has also had some hallucinations and the patient taken to [facility] and was admitted for further evaluation and treatment. There is no history of fever, rigors. No headache, loss of consciousness, seizures at this time. The patient was found to have possible UTI with sepsis present on admission and other labs were within normal limits. Otherwise, the CT of the brain was done which showed no acute process. Covid 19 is negative. Psychiatry saw the patient and thought cognitive disorder and rule out dementia versus delirium. Neurology following the patient closely. PAST MEDICAL HISTORY: History of CAD, COPD, hypertension, syncope, history of parathyroid nodules, history of CAD/stent. MEDICATIONS: Home medications are: Norvasc 5 mg p.o. b.i.d., omeprazole 20 mg p.o. daily, melatonin 20 mg q.h.s. p.r.n., vitamin D2 50 mg p.o. Tuesday, Plavix 75 mg p.o. daily, Celexa 40 mg p.o. daily, Lipitor 40 mg q.h.s. ALLERGIES: AMBIEN. FAMILY HISTORY: Family history unknown. SOCIAL HISTORY: History of smoking, history of alcohol intake. REVIEW OF SYSTEMS: ENT: Diminished vision. Diminished hearing. CARDIOVASCULAR: No angina or palpitations. RESPIRATORY: As mentioned earlier. GI: As mentioned earlier. : No dysuria. NERVOUS SYSTEM: As mentioned earlier. ALLERGY/IMMUNOLOGY: No asthma or hayfever. MUSCULOSKELETAL: As mentioned earlier. HEMATOLOGY/ONCOLOGY: No history of anemia. ENDOCRINE: As mentioned earlier. CONSTITUTIONAL: As mentioned earlier. DERMATOLOGY: Negative. RHEUMATOLOGY: Negative. PSYCHIATRY: As mentioned earlier. PHYSICAL EXAMINATION: Alert and oriented times three. Pulse 52, blood pressure 149/75, respirations 16, temperature 97.7, pulse ox 94% on room air. HEENT: Conjunctivae normal. NECK is no JVD. CARDIOVASCULAR: S1, S2 muffled. RESPIRATION: Breath sounds diminished in the bases. No rhonchi. No crackles. ABDOMEN: Soft, nontender. LEGS are no edema. No swelling. NERVOUS SYSTEM: Higher functions as mentioned earlier. Moves all 4 limbs. No focal deficits. LYMPHATICS: No lymph nodes palpable in the neck, axilla or groin. SKIN: No ulcer, rash or bleeding. JOINTS: No active deforming arthropathy. LABS: At this time shows: CBC within normal limits and glucose 119. UA noted. ASSESSMENT: 1. Possible urinary tract infection with sepsis. 2. Change in mental status possible acute metabolic encephalopathy. 3. History of coronary artery disease. 4. History of chest pain. 5. History of chronic obstructive pulmonary disease. 6. Hypertension. 7. History of syncope. 8. Hypothyroidism. 9. History of parathyroid nodule and hypercalcemia. 10.History of coronary artery disease/ stent. 11.History of anxiety, depression. 12.History of nicotine dependence. 13.FULL CODE. RECOMMENDATIONS AND DISCUSSION: In this 74-year-old woman who presented with multiple complex medical issues, we will monitor the patient closely, continue the current medications, management and symptomatic treatment. We will initiate broad-spectrum IV antibiotics and I would also obtain a complete neurovascular workup. Follow closely with Neurology and Psychiatry. Resume the home medications. Prognosis guarded because of multiple complex medical issues. Further recommendations to follow. A copy of this dictation being forwarded to Dr. Blanton, who is the primary physician. Cultures will be obtained. MMODL / IJN: [id number] /
[2020-08-17 15:17] LABS: Amphetamine Screen,Urine Not Detected (NotDetected); Barbiturate Screen,Urine Not Detected (NotDetected); Benzodiazepines Screen,Urine Not Detected (NotDetected); Cocaine Screen,Urine Not Detected (NotDetected); Methadone Screen, Urine Not Detected (NotDetected); Opiate Screen,Urine Not Detected (NotDetected); Oxycodone Screen, Urine Not Detected (NotDetected); Phencyclidine Screen,Urine Not Detected (NotDetected); Tricyclic Antidepressant,Urine Not Detected (NotDetected); Urn Cannabinoid Scrn Not Detected (NotDetected)
--- NOTE | 2020-08-17 15:26 | US ---
EXAMINATION TYPE: US carotid duplex BILAT DATE OF EXAM: 08/17/2020 COMPARISON: US 2017 CLINICAL HISTORY: stroke. Altered mental status EXAM MEASUREMENTS: RIGHT: Peak Systolic Velocity (PSV) cm/sec ----- Right CCA: 77.5 ----- Right ICA: 140 ----- Right ECA: 130 ICA/CCA ratio: 1.8 RIGHT: End Diastole cm/sec ----- Right CCA: 24.1 ----- Right ICA: 27.8 ----- Right ECA: 0.0 LEFT: Peak Systolic Velocity (PSV) cm/sec ----- Left CCA: 104 ----- Left ICA: 121 ----- Left ECA: 91.6 ICA/CCA ratio: 1.2 LEFT: End Diastole cm/sec ----- Left CCA: 19.5 ----- Left ICA: 25.3 ----- Left ECA: 14.9 VERTEBRALS (direction of flow): Right Vertebral: Antegrade Left Vertebral: Antegrade Rhythm: Arrhythmia Slightly elevated velocities, however no significant stenosis visualized IMPRESSION: There is antegrade flow in the vertebral arteries. The images and measurements suggest less than 50% stenosis in both internal carotid arteries. There is bilateral plaque formation. Velocity in the righ t internal carotid artery appears increased compared to old exam that suggests increased plaque. The images show less than 50% stenosis but the velocity measurements suggest 50-70% stenosis in the right internal carotid artery. Criteria for Assigning % of Stenosis / Diameter reduction (Estimation based on the indirect measurements of the internal carotid artery velocities (ICA PSV). 1. Normal (no stenosis)=ICA PSV < 125 cm/s: ratio < 2.0: ICA EDV<40 cm/s. 2. Less than 50% stenosis=ICA PSV < 125 cm/s: ratio < 2.0: ICA EDV<40 cm/s. 3. 50 to 69% stenosis=ICA PSV of 125 to 230 cm/s: ration 2.0 ? 4.0: ICA EDV 40-100 cm/s. 4. Greater than 70% stenosis to near occlusion= ICA PSV > 230 cm/s: ratio > 4.0: ICA EDV > 100 cm/s. 5. Near occlusion= ICA PSV velocities may be low or undetectable: variable ratio and ICA EDV. 6. Total occlusion=unable to detect flow.
[2020-08-17] MEDS: HEPARIN SODIUM,PORCINE/PF 5,000 UNIT/0.5 ML SYRINGE SQ SCH ×2 (15:41→20:03)
[2020-08-17] MEDS: CLOPIDOGREL 75 MG TAB PO SCH (15:41)
[2020-08-17] MEDS: amLODIPine 5 MG TAB PO SCH (20:03)
[2020-08-17] MEDS: ATORVASTATIN 40 MG TAB PO SCH (20:03)
[2020-08-18] MEDS: SODIUM CHLORIDE 0.9% 1,000 ML IV SCH (03:57)
[2020-08-18] MEDS: CITALOPRAM HYDROBROMIDE 20 MG TAB PO SCH (08:22)
[2020-08-18] MEDS: HEPARIN SODIUM,PORCINE/PF 5,000 UNIT/0.5 ML SYRINGE SQ SCH ×2 (08:22→20:11)
[2020-08-18] MEDS: CLOPIDOGREL 75 MG TAB PO SCH (08:23)
[2020-08-18] MEDS: THIAMINE 100 MG TAB PO SCH (08:23)
[2020-08-18] MEDS: MULTIVITAMINS, THERA 1 EACH TAB PO SCH (08:23)
[2020-08-18] MEDS: PANTOPRAZOLE 40 MG TABLET PO SCH (08:23)
[2020-08-18] MEDS: FOLIC ACID 1 MG TAB PO SCH (08:23)
[2020-08-18] MEDS: amLODIPine 5 MG TAB PO SCH ×2 (08:23→20:11)
[2020-08-18 08:52] LABS: Basophils # (A) 0.07 X 10*3/uL (0.00-0.10); Basophils % (A) 0.9 %; Eosinophils # (A) 0.12 X 10*3/uL (0.04-0.35); Eosinophils % (A) 1.5 %; HCT 46.6 % (37.2-46.3); HGB 14.6 g/dL (12.0-15.0); Lymphocytes # (A) 2.85 X 10*3/uL (0.90-5.00); MCH 28.1 pg (27.0-32.0); MCHC 31.3 g/dL (32.0-37.0); MCV 89.8 fL (80.0-97.0); Mean Platelet Volume 12.1 fL (9.5-12.2); Monocytes # (A) 0.54 X 10*3/uL (0.20-1.00); Monocytes % (A) 6.8 %; Neutrophils # (A) 4.31 X 10*3/uL (1.80-7.70); Neutrophils % (A) 54.5 %; Platelet Count 260 X 10*3/uL (140-440); RBC 5.19 X 10*6/uL (4.10-5.20); RDW 13.6 % (11.5-14.5); WBC 7.91 X 10*3/uL (4.50-10.00)
[2020-08-18] MEDS ORDERED: FAMOTIDINE 20 MG TAB PO SCH (09:00)
[2020-08-18 09:53] LABS: Anion Gap 11.3 mmol/L (4.00-12.00); Carbon Dioxide 24.7 mmol/L (21.6-31.8); Non-African American GFR(CKD) 71.6 (60.0-200.0); Potassium 4.5 mmol/L (3.5-5.5)
[2020-08-18 11:26] LABS: Folate, Serum 7.8 ng/mL
--- NOTE | 2020-08-18 11:51 | EEG ---
ELECTROENCEPHALOGRAM REPORT DATE OF SERVICE: 08/18/2020 PREAMBLE: This is a 74-year-old female who was admitted for confusion and hallucinations. This EEG is performed to evaluate for any encephalopathy, rule out any epileptiform activity. EEG FINDINGS: This is a 21 channel routine EEG recording in a patient utilizing 10/20 international system with referential and bipolar montages. Background consists of well developed, well regulated, moderate voltage activity in 9 hertz alpha. Background is posterior dominant and seems to be reactive to eye opening and closing. Photic driving response was not seen. Mild drowsiness was seen but deeper stages of sleep were not attained. No focal or generalized epileptiform activity was seen. IMPRESSION: This is a normal awake and drowsy EEG. No focal, lateralized, or epileptiform activity was seen. MMODL / IJN: [id number] /
--- NOTE | 2020-08-18 13:00 | ECHOF ---
Referral Reason:Stroke MEASUREMENTS -------- HEIGHT: 160.0 cm WEIGHT: 76.7 kg BP: 169/68 RVIDd: 2.8 cm (< 3.3) IVSd: 1.3 cm (0.6 - 1.1) LVIDd: 4.5 cm (3.9 - 5.3) LVPWd: 1.4 cm (0.6 - 1.1) IVSs: 1.7 cm LVIDs: 3.9 cm LVPWs: 1.4 cm LA Diam: 3.2 cm (2.7 - 3.8) LAESV Index (A-L): 17.59 ml/m Ao Diam: 3.1 cm (2.0 - 3.7) AV Cusp: 2.1 cm (1.5 - 2.6) MV EXCURSION: 17.570 mm (> 18.000) MV EF SLOPE: 159 mm/s (70 - 150) EPSS: 0.8 cm FINDINGS -------- This was a technically adequate study. The left ventricular size is normal. There is mild concentric left ventricular hypertrophy. Overa ll left ventricular systolic function is mildly impaired with, an EF between 45 - 50 %. The right ventricle is normal in size. Normal LA size by volume 22+/-6 ml/m2. The right atrium is normal in size. Interatrial and interventricular septum intact. There is mild aortic valve sclerosis. Trace to mild aortic regurgitation. Mild mitral annular calcification present. There is trace mitral regurgitation. The tricuspid valve appears structurally normal. The pulmonic valve was not well visualized. The aortic root size is normal. Normal inferior vena cava with normal inspiratory collapse consistent with estimated right atrial pre ssure of 5 mmHg. There is no pericardial effusion. CONCLUSIONS -------- 1. The left ventricular size is normal. 2. There is mild concentric left ventricular hypertrophy. 3. Overall left ventricular systolic function is mildly impaired with, an EF between 45 - 50 %. 4. There is mild aortic valve sclerosis. 5. Trace to mild aortic regurgitation. 6. Mild mitral annular calcification present. 7. There is trace mitral regurgitation. 8. There is no pericardial effusion. TRAY CASTING MACHINE OPERATOR: Rohini Guerra RDCS
--- NOTE | 2020-08-18 13:40 | MR ---
EXAMINATION TYPE: MR brain wo/w con DATE OF EXAM: 08/18/2020 COMPARISON: CT brain 08/17/2020, MR brain 1214 HISTORY: altered mental status TECHNIQUE: Multiplanar, multisequence images of the brain and brainstem is performed without and with IV contras t, utilizing 7.5 mL intravenous Gadavist . FINDINGS: Diffusion weighted images demonstrate no evidence of a recent infarct or other diffusion ab normality. There is no extra-axial fluid collection. There is been some progression in size and numb er of the diffuse hyperintensities within the white matter on inversion recovery and T2-weighted sequ ences. For reference, axial image #18 in the right frontal white matter shows a focus measures 13 mm in AP dimension which measured approximately 9 mm on prior exam. The ventricular system and cisternal spaces are normal in size and appearance. The brain volume is age appropriate. Midline structures demonstrate normal morphology. The craniocervical junction appears within normal limits. Post contrast images demonstrate no abnormal enhancement. The dural venous sinuses appear pa tent. The visualized sinuses are clear and the globes are intact. IMPRESSION: There is progressive white matter demyelination possibly due to chronic small vessel isch emic changes, there is age-related atrophy.
--- NOTE | 2020-08-18 18:33 | PN ---
PROGRESS NOTE DATE OF SERVICE: 08/18/2020 This 74-year-old woman who was admitted with change in mental status and confusion is being closely monitored. Patient has possible UTI with sepsis. MRA showed diffuse small-vessel ischemia also. Neurology is following the patient. No chest pain. No palpitations. No fever. PHYSICAL EXAMINATION: Alert and oriented x3. Pulse 68, blood pressure 149/60, respirations 16, temperature 98.2, pulse ox 93% on room air. HEENT: Conjunctivae normal. NECK: No jugular venous distention. CARDIOVASCULAR SYSTEM: S1, S2 muffled. RESPIRATORY SYSTEM: Breath sounds diminished at the bases. No rhonchi. No crackles. ABDOMEN: Soft, non-tender. LEGS: No edema. No swelling. NERVOUS SYSTEM: No focal deficit. LABS: CBC, BMP noted. Drug screen is negative. UA noted. Cultures are negative so far. ASSESSMENT: 1. Possible acute urinary tract infection with sepsis, present on admission. 2. Change in mental status, acute metabolic encephalopathy. 3. MRA showing small-vessel ischemia. 4. History of coronary artery disease. 5. History of chest pain. 6. History of chronic obstructive pulmonary disease. 7. Hypertension. 8. History of syncope. 9. Hypothyroidism. 10.History of parathyroid nodule and hypercalcemia. 11.History of coronary artery disease, stent. 12.History of anxiety, depression. 13.History of nicotine dependence. 14.FULL CODE. RECOMMENDATIONS AND DISCUSSION: I recommend to continue current medications, continue with the monitoring, symptomatic treatment. Otherwise at this time I recommend continuing with IV antibiotics. Follow the cultures. Follow closely with Neurology. MRA noted. A 2D echo with Doppler showed bilateral plaque formation; possible 50% to 70% stenosis in the right internal carotid artery also noted. Guarded prognosis. Further recommendations to follow. Will consult Vascular Surgery as well. MMODL / IJN: [id number] /
[2020-08-18] MEDS: ATORVASTATIN 40 MG TAB PO SCH (20:11)
[2020-08-19] MEDS ORDERED: HALOPERIDOL LACTATE 5 MG/ML 1 ML VIAL IM PRN ×2 (02:00→13:37)
[2020-08-19] MEDS ORDERED: LORazepam 2 MG/ML INJ IV PRN (02:01)
[2020-08-19] MEDS: SODIUM CHLORIDE 0.9% 1,000 ML IV SCH (05:35)
[2020-08-19] MEDS: PANTOPRAZOLE 40 MG TABLET PO SCH (07:18)
[2020-08-19] MEDS: CLOPIDOGREL 75 MG TAB PO SCH (09:00)
[2020-08-19] MEDS: amLODIPine 5 MG TAB PO SCH (09:00)
[2020-08-19] MEDS: HEPARIN SODIUM,PORCINE/PF 5,000 UNIT/0.5 ML SYRINGE SQ SCH (09:01)
[2020-08-19] MEDS: CITALOPRAM HYDROBROMIDE 20 MG TAB PO SCH (09:01)
--- NOTE | 2020-08-19 09:20 | P.PN ---
Subjective Progress Note Date: 08/18/20 Patient was seen for a follow-up. Patient initially seen by Dr. Amari Pollard. Please refer to his note for details. Patient was admitted for altered mental status of 1 week duration with visual hallucination. Some concern about underlying cognitive impairment and delirium. Patient states that she wants to take shower as she is noticing "smell". She states "nothing going on, can't believe what is happening to her". She states that her brother is talking across the swann. She still slightly delusional. Objective - Vital Signs Vital signs: Vital Signs Temp 98.2 F 08/18/20 15:00 Pulse 68 08/18/20 15:00 Resp 16 08/18/20 15:00 BP 149/67 08/18/20 15:00 Pulse Ox 93 L 08/18/20 15:00 Intake & Output 08/17/20 08/18/20 08/18/20 18:59 06:59 18:59 Intake Total 50 Balance 50 Intake: Intake, IV Titration 50 Amount cefTRIAXone 1 gm In 50 Sodium Chloride 0.9% 50 ml @ 100 mls/hr IVPB Q24HR [facility] Rx#:[id number] Other: Voiding Method Toilet # Voids 3 2 1 - Exam On examination patient is alert and awake in no distress. She knows it is August 2020 and that she is in [facility] in [place]. Speech and language functions are normal. Attention, concentration, fund of knowledge is adequate. Cranial nerves are normal. Muscle strength is normal. No ataxia. Tone and bulk of muscles normal. Gait appears normal. - Labs CBC & Chem 7: 08/18/20 04:30 08/18/20 04:30 Labs: Abnormal Lab Results - Last 24 Hours (Table) 08/18/20 Range/Units 04:30 Hct 46.6 H (37.2-46.3) % MCHC 31.3 L (32.0-37.0) g/dL Microbiology - Last 24 Hours (Table) 08/17/20 10:52 Blood Culture - Preliminary Blood No Growth after 24 hours 08/17/20 11:39 Urine Culture - Final Urine,Voided Assessment and Plan Assessment: Altered mental status for the past one weeks (having visual hallucination of her son who is for the past one year and having thought that her friend is going to harm her in the past couple month): Possibly delirium (especially with underlying UTI). Rule out underlying cognitive impairment/dementia Mild encephalopathy from underlying UTI Acute urinary tract infection Calcified granuloma at the periphery of the right lung base Per CXR Plan: * Patient continues to use to be slightly delusional. Psychiatry following the patient. * Vitamin B12 361, folate 7.8, TSH normal 2.87, methylmalonic acid, Vitamin B6 level and thiamine level are still pending. We will start B12 and folate as they are on the lower limits of normal range. * MRI of the brain w/ and w/o revealed progressive white matter demyelination possibly due to chronic small vessel ischemic disease. There is age-related atrophy. No acute process. * EEG normal awake and drowsy. No epileptiform activity seen. * 2-D echo showed normal left-ventricular size, mild concentric LVH, EF is mildly impaired 45-50%. Mild aortic valve sclerosis. * Carotid Doppler revealed antegrade flow in the vertebral arteries. Less than 50% stenosis in both ICAs. Bilateral plaque formation. Right ICA has increased velocity. The images showed less than 50% stenosis but the velocity measurements suggest 50-70% stenosis of the right ICA. Continue Plavix 75 mg, Lipitor 40 mg. * Appreciate psychiatric input. Impression is cognitive disorder, not otherwise specified and rule out dementia versus delirium. Collateral history was r ecommended. It was also felt the patient cannot live on her own by herself because she is risk to herself. * Recommend patient to follow-up with a neurologist as outpatient for further workup of cognitive impairment/dementia within 1-2 weeks. Patient currently on Celexa 40 mg, Haldol when necessary, Xanax when necessary and Ativan when necessary. Would suggest decreasing benzodiazepine as the benzodiazepines can make delirium worse. * Defer the rest of medical management to the primary team.
[2020-08-19] MEDS ORDERED: CYANOCOBALAMIN 1,000 MCG/ML 1 ML VIAL IM ONE (09:45)
[2020-08-19 09:46] LABS: Basophils # (A) 0.06 X 10*3/uL (0.00-0.10); Basophils % (A) 0.7 %; Eosinophils % (A) 1.2 %; HCT 44.8 % (37.2-46.3); HGB 13.9 g/dL (12.0-15.0); Lymphocytes # (A) 2.65 X 10*3/uL (0.90-5.00); Lymphocytes % (A) 33.1 %; MCH 27.9 pg (27.0-32.0); MCV 89.8 fL (80.0-97.0); Mean Platelet Volume 12.3 fL (9.5-12.2); Monocytes # (A) 0.51 X 10*3/uL (0.20-1.00); Monocytes % (A) 6.4 %; Neutrophils # (A) 4.67 X 10*3/uL (1.80-7.70); Neutrophils % (A) 58.4 %; Platelet Count 225 X 10*3/uL (140-440); RBC 4.99 X 10*6/uL (4.10-5.20); RDW 13.7 % (11.5-14.5); WBC 8.01 X 10*3/uL (4.50-10.00)
[2020-08-19] MEDS: CYANOCOBALAMIN-FA-PYRIDOXINE 1 EACH TAB PO SCH (10:38)
[2020-08-19] MEDS: MULTIVITAMINS, THERA 1 EACH TAB PO SCH (11:13)
[2020-08-19] MEDS: FOLIC ACID 1 MG TAB PO SCH (11:13)
[2020-08-19] MEDS: THIAMINE 100 MG TAB PO SCH (11:13)
--- NOTE | 2020-08-19 12:34 | P.CRDCN ---
History of Present Illness History of present illness: This is a 74-year-old woman with medical history of coronary artery disease s/p PCI to proximal LAD in 11/2014, hypertension, dyslipidemia, chronic total occlusion of the RCA, tobacco dependence, underlying dementia. She follows in the office with Dr. Drake. We are being consulted for possible arrhythmia. Patient presented emergency department on the 08/17/2020 for altered mental status. Per chart review, patient did have episodes of visual hallucinations, she has told other providers that her best friend was going to kill her. She states when she presented emergency room she does remember having symptoms of heart racing. She is unable to really tell me who brought her to the emergency department. She denies having any chest pain, shortness of breath, lightheadedness or dizziness prior to this admission to the emergency department. Patient last saw Dr. Drake in the office last week on 08/14/2020 for a follow up visit with her daughter. At that time it was noticed taht her heart rate had been on the slow slide, stating that it has been in the 30s-40s at times. But this was also accompanied by some confusion and change in mental status. At this visit, a 24hour holter monitor was ordered to be completed. These results are not scanned in yet. Patient smokes 1 PPD. Denies alcohol use. Denies history of diabetes or stroke. Patient seen and examined at bedside, no acute distress. Sitting up at the edge and fell. She is alert and oriented 3. Per nursing overnight the patient was very agitated, and requiring one dose of 5 mg IM Haldol. Psychiatry and Neurology are following the patient. Blood pressure 144/70, heart rate 55, afebrile, maintaining oxygen saturations 96% on room air. Patient is not on cardiac telemetry, reviewing vital signs patient's heart rate ranges from 50-90. DIAGNOSTICS EKG reveals sinus rhythm, heart rate 65, marked sinus arrhythmia, no significant STT wave abnormalities. Echocardiogram on 08/18/20EF 45-50%, mild aortic regurgitation, trace mitral regurgitation. EEG- Patient with no focal, lateralized or epileptiform activity Chest xray -heart is mildly enlarged, osteopenia, calcified granuloma at the periphery of the right lung base that is stable Brain CTnegative for acute intracranial process Brain MRI- progressive white matter demyelination possibly due to chronic small vessel ischemic changes, age related atrophy Carotid Dopplersless than 50% stenosis in both internal carotid arteries. There is bilateral plaque formation. Velocity in the right internal carotid artery appears increased compared to old exam. Cardiac catheterization 11/2014- 60% proximal LAD, 40% proximal circumflex, 100% distal RCA Lexiscan 02/2018- Normal Holter Monitor in 04/2016- Sinus rhythm baseline mechanism, no evidence of any ectopic events. Laboratory reviewed, troponin negative 1, urine tox negative, COVID-19 negative, UA +UTI, sodium 141, potassium 4.5, serum creatinine 0.8, BUN 12, TSH within normal limits. Current cardiac medications include amlodipine 5 mg twice a day, Plavix 75 mg daily, atorvastatin 40 mg nightly. REVIEW OF SYSTEMS At the time of my exam: CONSTITUTIONAL: Denies fever or chills. CARDIOVASCULAR: +palpitations, Denies chest pain, shortness of breath, orthopnea, PND RESPIRATORY: Denies cough. GASTROINTESTINAL: Denies abdominal pain, diarrhea, constipation, nausea or vom iting. MUSCULOSKELETAL: Denies myalgias. NEUROLOGIC: +confusion Denies numbness, tingling, headacbe or weakness. ENDOCRINE: Denies fatigue, weight change, polydipsia or polyurina. GENITOURINARY: Denies burning, hematuria or urgency with micturation. HEMATOLOGIC: Denies history of anemia or bleeding. PHYSICAL EXAMINATION CONSTITUTIONAL: No apparent distress. HEENT: Head is normocephalic. Pupils are equal, round. Sclerae anicteric. Mucous membranes of the mouth are moist. No JVD. No carotid bruit. CHEST EXAMINATION: Lungs are clear to auscultation. No chest wall tenderness is noted on palpation or with deep breathing. HEART EXAMINATION: Regular rate and rhythm. S1, S2 heard. No murmurs, gallops or rub. ABDOMEN: Soft, nontender. Positive bowel sounds. EXTREMITIES: 2+ peripheral pulses, no lower extremity edema and no calf tenderness. NEUROLOGIC EXAMINATION: Patient is awake, alert and oriented x3. ASSESSMENT Altered mental status History of coronary artery disease s/p PCI to proxmial LAD in 11/2014 Hypertension Dyslipidemia Tobacco dependence PLAN -Patient was on cardiac telemetry this morning through this afternoon, no arrhythmia noted. -Patient recently had a 24-Holter monitor in the office with Dr. Drake last week on 08/14/20, these results are pending -From cardiology perspective, patient can be discharged home and follow up with Dr. Drake in 1 week. Nurse Practitioner note has been reviewed, I agree with a documented findings and plan of care. Patient was seen and examined. Past Medical History Past Medical History: Coronary Artery Disease (CAD), Chest Pain / Angina, COPD, Hypertension, Syncope, Thyroid Disorder Additional Past Medical History / Comment(s): parathyroid nodules, high calcium Last Myocardial Infarction Date:: 12/2014 History of Any Multi-Drug Resistant Organisms: None Reported Past Surgical History: Heart Catheterization With Stent Additional Past Surgical History / Comment(s): cyst removed from back, heart cath with a stent placed 12/2014. parathyroid removal Past Anesthesia/Blood Transfusion Reactions: No Reported Reaction Date of Last Stent Placement:: 12/03/2014 Past Psychological History: Anxiety, Depression Smoking Status: Current some day smoker Past Alcohol Use History: Occasional, Rare Past Drug Use History: None Reported - Past Family History Father Family Medical History: No Reported History Additional Family Medical History / Comment(s): FATHER AT AGE 70. PT UNSURE WHAT EXACTLY HE FROM. Mother Family Medical History: Congestive Heart Failure (CHF) Additional Family Medical History / Comment(s): MOTHER AT AGE 91 YRS. Medications and Allergies Home Medications Medication Instructions Recorded Confirmed Type amLODIPine BESYLATE [Norvasc] 5 mg PO BID 10/14/15 08/17/20 History Citalopram Hydrobromide [CeleXA] 40 mg PO DAILY 02/23/17 08/17/20 History Omeprazole 20 mg PO DAILY 02/23/17 08/17/20 History Clopidogrel [Plavix] 75 mg PO DAILY #30 tab 02/24/17 08/17/20 Rx Atorvastatin [Lipitor] 40 mg PO HS 07/31/20 08/17/20 History Ergocalciferol [Vitamin D2 (1250 1,250 mcg PO FR 08/17/20 08/17/20 History Mcg = 16625 Iu)] Melatonin 20 mg PO HS PRN 08/17/20 08/17/20 History Allergies Allergy/AdvReac Type Severity Reaction Status Date / Time zolpidem tartrate AdvReac Severe Hallucinati Verified 08/17/20 09:40 [From [facility]] ons Physical Exam Vitals: Vital Signs Temp Pulse Resp BP Pulse Ox 08/19/20 07:52 96 08/19/20 01:34 97.9 F 89 22 167/68 96 08/18/20 20:00 22 08/18/20 19:40 98.1 F 58 L 18 163/79 95 08/18/20 15:00 98.2 F 68 16 149/67 93 L 08/18/20 08:00 96 Intake and Output 08/18/20 08/19/20 08/19/20 22:59 06:59 14:59 Other: Voiding Method Toilet Toilet # Voids 1 2 Results 08/19/20 05:24 08/18/20 04:30 CBC 08/18/20 Range/Units 04:30 WBC 7.91 (4.50-10.00) X 10*3/uL RBC 5.19 (4.10-5.20) X 10*6/uL Hgb 14.6 (12.0-15.0) g/dL Hct 46.6 H (37.2-46.3) % Plt Count 260 (140-440) X 10*3/uL Comprehensive Metabolic Panel 08/18/20 Range/Units 04:30 Sodium 141 (135-145) mmol/L Potassium 4.5 (3.5-5.5) mmol/L Chloride 105 (96-109) mmol/L Carbon Dioxide 24.7 (21.6-31.8) mmol/L BUN 12.0 (9.0-27.0) mg/dL Creatinine 0.8 (0.6-1.5) mg/dL Glucose 103 (70-110) mg/dL Calcium 10.0 (8.7-10.3) mg/dL Current Medications Generic Name Dose Route Start Last Admin Trade Name Freq PRN Reason Stop Dose Admin Acetaminophen 650 mg 08/17/20 04:08 Acetaminophen Tab 325 Mg Tab PO Q6HR PRN Mild Pain or Fever > 100.5 Alprazolam 0.25 mg 08/17/20 14:00 Alprazolam 0.25 Mg Tab PO TID PRN Anxiety Amlodipine Besylate 5 mg 08/17/20 21:00 08/18/20 20:11 Amlodipine 5 Mg Tab PO 5 mg BID JOSETTE Administration Atorvastatin Calcium 40 mg 08/17/20 21:00 08/18/20 20:11 Atorvastatin 40 Mg Tab PO 40 mg HS JOSETTE Administration Citalopram Hydrobromide 40 mg 08/18/20 09:00 08/18/20 08:22 Citalopram Hydrobromide 20 Mg Tab PO 40 mg DAILY JOSETTE Administration Clopidogrel Bisulfate 75 mg 08/17/20 14:15 08/18/20 08:23 Clopidogrel 75 Mg Tab PO 75 mg DAILY JOSETTE Administration Ergocalciferol 1,250 mcg 08/22/20 09:00 Ergocalciferol 1,250 Mcg (50,000 Iu) Capsule PO FR JOSETTE Folic Acid 1 mg 08/18/20 12:00 08/18/20 08:23 Folic Acid 1 Mg Tab PO 1 mg DAILY@1200 JOSETTE Administration Haloperidol Lactate 5 mg 08/19/20 02:00 08/19/20 02:10 Haloperidol Lactate 5 Mg/Ml 1 Ml Vial IM 5 mg Q6HR PRN Administration Agitation or Acute Psychosis Heparin Sodium (Porcine) 5,000 unit 08/17/20 14:15 08/18/20 20:11 Heparin Sodium,Porcine/Pf 5,000 Unit/0.5 Ml Syringe SQ 5,000 unit Q12HR JOSETTE Administration Sodium Chloride 1,000 mls @ 20 mls/hr 08/17/20 04:15 08/19/20 05:35 Saline 0.9% IV Not Given .Q24H JOSETTE Ceftriaxone Sodium 1 gm/ 50 mls @ 100 mls/hr 08/17/20 10:45 08/18/20 08:23 Sodium Chloride IVPB 100 mls/hr Q24HR JOSETTE Administration Lorazepam 0.5 mg 08/19/20 02:01 Lorazepam 2 Mg/Ml Inj IV Q4HR PRN Anxiety Multivitamins 1 each 08/18/20 12:00 08/18/20 08:23 Multivitamins, Thera 1 Each Tab PO 1 each DAILY@1200 JOSETTE Administration Naloxone HCl 0.2 mg 08/17/20 04:08 Naloxone 0.4 Mg/Ml 1 Ml Vial IV Q2M PRN Opioid Reversal Pantoprazole Sodium 40 mg 08/18/20 07:30 08/19/20 07:18 Pantoprazole 40 Mg Tablet PO 40 mg [id number] JOSETTE Administration Thiamine HCl 100 mg 08/18/20 12:00 08/18/20 08:23 Thiamine 100 Mg Tab PO 100 mg DAILY@1200 JOSETTE Administration Intake and Output 08/18/20 08/19/2021 22:59 06:59 14:59 Other: Voiding Method Toilet Toilet # Voids 1 2 08/18/20 04:30 08/18/20 04:30
--- NOTE | 2020-08-19 13:10 | P.PN ---
Subjective Progress Note Date: 08/19/20 08/19/2020: Patient offers no new complaints. Wants to go home. No visual hallucinations reported. Spoke to Dr. sexton. 08/18/2020 Patient was seen for a follow-up. Patient initially seen by Dr. Amari Pollard. Please refer to his note for details. Patient was admitted for altered mental status of 1 week duration with visual hallucination. Some concern about underlying cognitive impairment and delirium. Patient states that she wants to take shower as she is noticing "smell". She states "nothing going on, can't believe what is happening to her". She states that her brother is talking across the swann. She still slightly delusional. Objective - Vital Signs Vital signs: Vital Signs Temp 97.7 F 08/19/20 07:00 Pulse 55 L 08/19/20 07:00 Resp 18 08/19/20 07:00 BP 144/70 08/19/20 07:00 Pulse Ox 96 08/19/20 07:52 Intake & Output 08/18/20 08/19/20 08/19/20 18:59 06:59 18:59 Intake Total 50 Balance 50 Intake: Intake, IV Titration 50 Amount cefTRIAXone 1 gm In 50 Sodium Chloride 0.9% 50 ml @ 100 mls/hr IVPB Q24HR [facility] Rx#:[id number] Other: Voiding Method Toilet Toilet # Voids 1 2 - Exam On examination patient is alert and awake in no distress. She knows it is August 2020 and that she is in [facility] in [place]. Patient knows name of the current president. Speech and language functions are normal. Attention, concentration, fund of knowledge is adequate. Cranial nerves are normal. Muscle strength is normal. No ataxia. Tone and bulk of muscles normal. Gait appears normal. - Labs CBC & Chem 7: 08/19/20 05:24 08/20/20 05:38 Labs: Abnormal Lab Results - Last 24 Hours (Table) 08/19/20 Range/Units 05:24 MCHC 31.0 L (32.0-37.0) g/dL MPV 12.3 H (9.5-12.2) fL Microbiology - Last 24 Hours (Table) 08/17/20 10:52 Blood Culture - Preliminary Blood No Growth after 24 hours 08/17/20 11:39 Urine Culture - Final Urine,Voided Assessment and Plan Assessment: Altered mental status for the past one weeks (having visual hallucination of her son who is for the past one year and having thought that her friend is going to harm her in the past couple month): Possibly delirium (especially with underlying UTI). Rule out underlying cognitive impairment/dementia Mild encephalopathy from underlying UTI Acute urinary tract infection Calcified granuloma at the periphery of the right lung base Per CXR Plan: * Patient continues to use to be slightly delusional. Psychiatry following the patient. * Vitamin B12 361, folate 7.8, TSH normal 2.87, methylmalonic acid, Vitamin B6 level and thiamine level are still pending. We will start B12 and folate as they are on the lower limits of normal range. * MRI of the brain w/ and w/o revealed progressive white matter demyelination possibly due to chronic small vessel ischemic disease. There is age-related atrophy. No acute process. * EEG normal awake and drowsy. No epileptiform activity seen. * 2-D echo showed normal left-ventricular size, mild concentric LVH, EF is mildly impaired 45-50%. Mild aortic valve sclerosis. * Carotid Doppler revealed antegrade flow in the vertebral arteries. Less than 50% stenosis in both ICAs. Bilateral plaque formation. Right ICA has increased velocity. The images showed less than 50% stenosis but the velocity measurements suggest 50-70% stenosis of the right ICA. Continue Plavix 75 mg, Lipitor 40 mg. * Appreciate psychiatric input. Impression is cognitive disorder, not otherwise specified and rule out dementia versus delirium. Collateral history was recommended. It was also felt the patient cannot live on her own by herself because she is risk to herself. * Recommend patient to follow-up with a neurologist as outpatient for further workup of cognitive impairment/dementia within 1-2 weeks. Patient currently on Celexa 40 mg, Haldol when necessary, Xanax when necessary and Ativan when necessary. Would suggest decreasing benzodiazepine as the benzodiazepines can make delirium worse. * Defer the rest of medical management to the primary team. * Neurologically clear for discharge. Discussed with Dr. Sexton.
--- NOTE | 2020-08-19 13:15 | P.GSCN ---
History of Present Illness Consult date: 08/19/20 Reason for Consult: carotid stenosis Requesting physician: Raffi E Sheet History of present illness: This is a pleasant 74-year-old female with a past medical history of coronary artery disease, hypertension who presented to the emergency department in 2 days ago for altered mental status. Apparently the patient was having visual hallucinations a week ago who is for the past year. Patient also was having hallucinations yesterday evening as well, however she states she does not remember. She was seen by neurology who ordered an EEG and MRI of the brain. Her initial computed tomography scan reported no acute intracranial process., However neurology reviewed the CT and felt the patient had mild to moderate bilateral frontal atrophy which he stated slightly more than appropriate for her age. The patient denies any focal deficits, denies any weakness to her upper or lower extremities. She is alert and answering questions appropriately at this time. Denies any shortness of breath, chest pain, headache, abdominal pain, nausea vomiting, or chills. He has part of further workup she underwent a carotid ultrasound which showed no significant internal carotid artery stenosis bilaterally, they're worse velocity measurement suggesting 50-70% stenosis in the right internal carotid artery. Review of Systems A 14 point review of systems was completed all pertinent positives and negatives as stated in the HPI Past Medical History Past Medical History: Coronary Artery Disease (CAD), Chest Pain / Angina, COPD, Hypertension, Syncope, Thyroid Disorder Additional Past Medical History / Comment(s): parathyroid nodules, high calcium Last Myocardial Infarction Date:: 12/2014 History of Any Multi-Drug Resistant Organisms: None Reported Past Surgical History: Heart Catheterization With Stent Additional Past Surgical History / Comment(s): cyst removed from back, heart cath with a stent placed 12/2014. parathyroid removal Past Anesthesia/Blood Transfusion Reactions: No Reported Reaction Date of Last Stent Placement:: 12/03/2014 Past Psychological History: Anxiety, Depression Smoking Status: Current some day smoker Past Alcohol Use History: Occasional, Rare Past Drug Use History: None Reported - Past Family History Father Family Medical History: No Reported History Additional Family Medical History / Comment(s): FATHER AT AGE 70. PT UNSURE WHAT EXACTLY HE FROM. Mother Family Medical History: Congestive Heart Failure (CHF) Additional Family Medical History / Comment(s): MOTHER AT AGE 91 YRS. Medications and Allergies Home Medications Medication Instructions Recorded Confirmed Type amLODIPine BESYLATE [Norvasc] 5 mg PO BID 10/14/15 08/17/20 History Citalopram Hydrobromide [CeleXA] 40 mg PO DAILY 02/23/17 08/17/20 History Omeprazole 20 mg PO DAILY 02/23/17 08/17/20 History Clopidogrel [Plavix] 75 mg PO DAILY #30 tab 02/24/17 08/17/20 Rx Atorvastatin [Lipitor] 40 mg PO HS 07/31/20 08/17/20 History Ergocalciferol [Vitamin D2 (1250 1,250 mcg PO FR 08/17/20 08/17/20 History Mcg = 03232 Iu)] Melatonin 20 mg PO HS PRN 08/17/20 08/17/20 History Allergies Allergy/AdvReac Type Severity Reaction Status Date / Time zolpidem tartrate AdvReac Severe Hallucinati Verified 08/17/20 09:40 [From [facility]] ons Surgical - Exam Vital Signs Pulse Resp BP Pulse Ox 72 19 156/84 97 08/17/20 00:55 08/17/20 00:55 08/17/20 00:55 08/17/20 00:55 General appearance: The patient is alert, oriented, appears in no acute distr ess. HET: Head is normocephalic and atraumatic. Neck: Supple without lymphadenopathy. Trachea midline. Heart: S1 S2. Regular rate and rhythm. Lungs: Fair to auscultation. Abdomen: Soft, nontender, nondistended. Extremities: Normal skin color and turgor. . Neurological: No focal deficits. Strength and sensation are grossly intact. Tongue protrudes midline, she has facial symmetry. She answers questions appropriately and follows commands. Results - Labs 08/19/20 05:24 08/18/20 04:30 Abnormal Lab Results - Last 24 Hours (Table) 08/19/20 Range/Units 05:24 MCHC 31.0 L (32.0-37.0) g/dL MPV 12.3 H (9.5-12.2) fL Microbiology - Last 24 Hours (Table) 08/17/20 10:52 Blood Culture - Preliminary Blood No Growth after 24 hours 08/17/20 11:39 Urine Culture - Final Urine,Voided - Imaging Additional studies: Carotid ultrasound: Antegrade flow in the vertebral arteries. Images in measurement suggests less than 50% stenosis in both internal carotid arteries. Bilateral plaque formation. Velocity in the right internal carotid artery appears increased compared to old exam and suggest increased plaque. The images show less than 50% stenosis but the velocity measurements suggest 50-70% stenosis in the right internal carotid artery. CT head: No acute intracranial process MRA brain: There is progressive white matter demyelination possibly due to chronic small vessel ischemic changes, there is age-related atrophy EEG: This is a normal awake and drowsy EEG. No focal, lateralized, or epileptiform activity seen. Assessment and Plan Assessment: 1. Internal carotid artery stenosis less than 50% 2. Altered mental status changes 3. Urinary tract infection 4. History hypertension 5. History hyperlipidemia 6. History of coronary artery disease Plan: 1. Agree with continuing Plavix and Lipitor 2. There is no significant internal carotid artery stenosis, therefore there is no indication for any vascular surgical intervention at this time 3. Discussed with patient to follow-up with vascular surgery to be followed for carotid stenosis on an outpatient basis Thank you for this consultation allowing us take part in the plan of care of your patient during her hospital stay. We'll sign off at this time. The impression and plan of care has been dictated as directed. I performed a history and examination of this patient, discussed the same with the dictator. I agree with the dictator's note ,documented as a scribe. Any additional findings or plans will be noted.
[2020-08-19 13:33] LABS: ALT 16 U/L (8-44); AST 24 U/L (13-35); African American GFR (CKD) 56.5 (60.0-200.0); Albumin/Globulin Ratio 2.37 (1.60-3.17); Alkaline Phosphatase 118 U/L (41-126); BUN/Creat Ratio 17.27 Ratio (12.00-20.00); Bilirubin, Conjugated <0.20 mg/dL (0.20-0.40); Calcium 10.1 mg/dL (8.7-10.3); Carbon Dioxide 24.1 mmol/L (21.6-31.8); Chloride 104 mmol/L (96-109); Globulin 1.9 g/dL (1.6-3.3); Glucose 145 mg/dL (70-110); Magnesium 2.1 mg/dL (1.5-2.4); Non-African American GFR(CKD) 48.7 (60.0-200.0); Potassium 4.7 mmol/L (3.5-5.5); Sodium 140 mmol/L (135-145); Total Bilirubin 0.3 mg/dL (0.3-1.2); Total Protein 6.4 g/dL (6.2-8.2)
--- NOTE | 2020-08-19 13:38 | P.PN ---
Progress Note - Text Progress Note Date: 08/19/20 Interval History: Patient was seen today for psychiatric follow-up regarding patient's delirium. Patient was initially seen by Dr. Villareal over the weekend for altered mental status. At that time patient was confused paranoid and a poor historian. Diagnosis was likely delirium possibly underlying dementia. Patient had a MRI on 08/18 showed progressive white matter demyelination due to likely chronic small vessel ischemia and age-related atrophy. Patient has neurology following along. Patient was noticed to have a UTI which is currently being treated with antibiotics. Nursing. Patient states that she is doing better compared to yesterday and more cooperative however patient did receive a Haldol IM shot this morning for agitation. Patient's daughter spoke to story writer outside her room and states that she is doing a bit better today however was sleepy today. 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 She states that she checks on her daily and denies patient having any underlying dementia. Patient was seen at the bedside and was sitting in her chair. She was responsive to story writer and cooperative. Patient did not show much confusion at all and could identify objects in the room and had fair concentration. She spoke about her living situation. She claims that she was admitted to the hospital for being "confused and thinking someone was going to kill me" however now states that "that's all wrong I don't believe that stuff". She states that she denies any depression or an anxiety. She was alert and oriented 3 and knows the current Pres. is. At this time patient denies any suicidal or homical ideations, intent or plan. Patient denies any auditory, visual hallucinations and denies any paranoia or delusions. Patient denies any side effects from the medications and has been c ompliant with meds. Mental Status Exam: General Appearance: Patient appears to be elderly, stated age is alert, directable, and cooperative. Behavior: Patient is calmly seated without any agitated behavior. Cooperative Speech: Patient's speech is fluent and nonpressured. Mood/Affect: Mood is improving mildly, affect is congruent and constricted. Suicidality/Homicidality: Patient denies having any suicidal or homicidal ideation intent or plan. Perceptions: Patient denies any visual hallucinations and denies any auditory hallucinations Though content/process: There is no evidence of any delusional thought content and thought process is linear and goal-directed. Memory and concentration: AOX3, grossly intact for the purposes of this session. Fair attention span. Can identify objects in the room. Can spell "world" backwards Judgment and insight: Improving mildly Assessment Delirium likely secondary to infection (uti) History of depression Plan: -At this time patient DOES NOT meet criteria for inpatient psychiatric admission. -Delirium precautions recommended with patient including - avoiding use of narcotics and DUCT LAYER sedatives, limit anticholinergic medications when possible, frequent re-orientation, minimize use of restraints, open window shades during the day and close them at night -Would recommend the following medication changes/additions: Continue with her home dose of Celexa. Discontinued Xanax and any other benzodiazepines as this may contribute to worsening delirium and confusion and possibly falls in elderly patients. Haldol prn for agitation -black off worker to provide patient with outpatient mental health/psychiatry resources for appropriate follow up upon discharge -Communicated plan to patient's nurse -Psychiatry will sign off at this time -Please contact with any questions.
[2020-08-19] MEDS ORDERED: QUEtiapine 25 MG TAB PO STA (14:49)
--- NOTE | 2020-08-19 19:15 | P.PN ---
Subjective This is a pleasant 74 years old female with multiple medical problems presents with. So confusion and suspected to have acute urinary tract infection, she was admitted and treated with ceftriaxone, with neurology and vascular surgery team were consulted. When I saw the patient she was alert and awake and call him, however later on during the day she become agitated so patient came to the hospital for close monitoring for now. Patient got 1 dose of 15 mg temazepam yesterday night. Patient has been as was a stopped. Because it might contri bute to her delirium. Patient denies any specific symptoms, no chest pain or dyspnea. No headache. She is awake and alert to time, place and person, she That she is in the hospital because of confusion. However she denies any urinary tract symptoms, no dysuria, no change in frequency, she vomited once this morning however she denies abdominal pain. Last bowel movement was yesterday and she has been constipated since then. She is hemodynamically stable, labs were stable, creatinine is slightly went up 0.8 up to 1.1 but still within the reference range. She is a still on ceftriaxone, however patient is afebrile, no leukocytosis and no urinary symptoms today. Urine culture is negative so antibiotics of Rocephin was stopped because patient finish her treatment and she is asymptomatic currently. Brain MRI showing cerebral atrophy. EEG is normal. Ejection fraction 40-45%. Pronecalcitonin only slightly up at 0.10. When I talked to urology service today we were cleared the patient for discharge however later on patient got more confused and we kept the patient. Patient will need to follow-up with Dr. Drake in one week to follow-up with her Holter monitor, concrete layer already evaluated the patient. Physical therapy service requested Objective - Vital Signs Vital signs: Vital Signs Temp 97.7 F 08/19/20 07:00 Pulse 55 L 08/19/20 07:00 Resp 18 08/19/20 07:00 BP 144/70 08/19/20 07:00 Pulse Ox 96 08/19/20 07:52 Intake & Output 08/18/20 08/19/20 08/19/20 18:59 06:59 18:59 Intake Total 50 Balance 50 Intake: Intake, IV Titration 50 Amount cefTRIAXone 1 gm In 50 Sodium Chloride 0.9% 50 ml @ 100 mls/hr IVPB Q24HR [facility] Rx#:[id number] Other: Voiding Method Toilet Toilet # Voids 1 2 - Exam GENERAL: The patient is alert and oriented x3, not in any acute distress. Well developed, well nourished. HEENT: Pupils are round and equally reacting to light. EOMI. No scleral icterus. No conjunctival pallor. Normocephalic, atraumatic. No pharyngeal erythema. No thyromegaly. CARDIOVASCULAR: S1 and S2 present. No murmurs, rubs, or gallops. PULMONARY: Chest is clear to auscultation, no wheezing or crackles. ABDOMEN: Soft, nontender, nondistended, normoactive bowel sounds. No palpable organomegaly. MUSCULOSKELETAL: No joint swelling or deformity. EXTREMITIES: No cyanosis, clubbing, or pedal edema. NEUROLOGICAL: Gross neurological examination did not reveal any focal deficits. SKIN: No rashes. no petechiae. - Labs CBC & Chem 7: 08/19/20 05:24 08/19/20 05:24 Labs: Abnormal Lab Results - Last 24 Hours (Table) 08/19/20 08/19/20 08/19/20 Range/Units 05:24 05:24 05:24 MCHC 31.0 L (32.0-37.0) g/dL MPV 12.3 H (9.5-12.2) fL Est GFR (CKD-EPI)AfAm 56.5 L (60.0-200.0) Est GFR (CKD-EPI)NonAf 48.7 L (60.0-200.0) Glucose 145 H (70-110) mg/dL Conjugated Bilirubin <0.20 L (0.20-0.40) mg/dL Procalcitonin 0.10 H (0.02-0.09) ng/mL Microbiology - Last 24 Hours (Table) 08/17/20 10:52 Blood Culture - Preliminary Blood No Growth after 48 hours 08/17/20 11:39 Urine Culture - Final Urine,Voided Assessment and Plan Assessment: Periods of altered mental status secondary to metabolic and toxic encephalopathy Acute urinary tract infection, finished therapy and antibiotics were discontinued, keep monitoring while off antibiotics Possible right internal carotid artery stenosis less than 50% however velocity showing normal and 50-70% Plan: This is a pleasant 74 years old female who presents with encephalopathy and patient finished treatment for UTI. Discontinue antibiotic. Urine culture is negative. We'll keep monitoring. Neurology service on the case. Discontinue benzodiazepine including temazepam. Give 1 dose of Seroquel. Keep monitoring mental status closely Labs and medication were reviewed.. Continue same treatment. Continue with symptomatic treatment. Resume home medication. Monitor lytes and vitals. DVT and GI prophylaxis. Further recommendationsas per clinical course of the patient DVT prophylaxis: Subcutaneous heparin GI Prophylaxis: Ppi PT/OT: Pending Prognosis is guarded
[2020-08-20] MEDS: HEPARIN SODIUM,PORCINE/PF 5,000 UNIT/0.5 ML SYRINGE SQ SCH ×3 (00:10→21:30)
[2020-08-20] MEDS: ATORVASTATIN 40 MG TAB PO SCH ×2 (00:32→21:29)
[2020-08-20] MEDS: amLODIPine 5 MG TAB PO SCH ×3 (00:32→21:29)
[2020-08-20] MEDS: SODIUM CHLORIDE 0.9% 1,000 ML IV SCH (05:42)
[2020-08-20] MEDS: PANTOPRAZOLE 40 MG TABLET PO SCH (07:57)
[2020-08-20] MEDS: CLOPIDOGREL 75 MG TAB PO SCH (08:05)
[2020-08-20] MEDS: CITALOPRAM HYDROBROMIDE 20 MG TAB PO SCH (08:11)
[2020-08-20] MEDS: CYANOCOBALAMIN-FA-PYRIDOXINE 1 EACH TAB PO SCH (08:11)
[2020-08-20 10:36] LABS: African American GFR (CKD) 63.4 (60.0-200.0); Anion Gap 12.2 mmol/L (4.00-12.00); Carbon Dioxide 23.8 mmol/L (21.6-31.8); Non-African American GFR(CKD) 54.7 (60.0-200.0); Potassium 4.6 mmol/L (3.5-5.5)
[2020-08-20] MEDS: MULTIVITAMINS, THERA 1 EACH TAB PO SCH (12:01)
[2020-08-20] MEDS: FOLIC ACID 1 MG TAB PO SCH (12:01)
[2020-08-20] MEDS: THIAMINE 100 MG TAB PO SCH (12:01)
[2020-08-20] MEDS: PYRIDOXINE 50 MG TAB PO SCH (13:57)
--- NOTE | 2020-08-20 14:01 | P.PN ---
Subjective This is a pleasant 74 years old female with multiple medical problems presents with. So confusion and suspected to have acute urinary tract infection, she was admitted and treated with ceftriaxone, with neurology and vascular surgery team were consulted. When I saw the patient she was alert and awake and call him, however later on during the day she become agitated so patient came to the hospital for close monitoring for now. Patient got 1 dose of 15 mg temazepam yesterday night. Patient has been as was a stopped. Because it might contri bute to her delirium. Patient denies any specific symptoms, no chest pain or dyspnea. No headache. She is awake and alert to time, place and person, she That she is in the hospital because of confusion. However she denies any urinary tract symptoms, no dysuria, no change in frequency, she vomited once this morning however she denies abdominal pain. Last bowel movement was yesterday and she has been constipated since then. She is hemodynamically stable, labs were stable, creatinine is slightly went up 0.8 up to 1.1 but still within the reference range. She is a still on ceftriaxone, however patient is afebrile, no leukocytosis and no urinary symptoms today. Urine culture is negative so antibiotics of Rocephin was stopped because patient finish her treatment and she is asymptomatic currently. Brain MRI showing cerebral atrophy. EEG is normal. Ejection fraction 40-45%. Pronecalcitonin only slightly up at 0.10. When I talked to urology service today we were cleared the patient for discharge however later on patient got more confused and we kept the patient. Patient will need to follow-up with Dr. Drake in one week to follow-up with her Holter monitor, agricultural plow operator already evaluated the patient. Physical therapy service requested 08/20/2020 Patient when I saw her yesterday morning and today morning she was completely alert and awake and oriented to time place and person, she immediately told me [facility] [place] [facility] [place]. She knew the date exactly 08/20/2020 and she knew the name of the president clarence. Also she follows commands appropriately and she knows why she is in the hospital, periods of confusion. However during the day she got periods of confusion for example this afternoon. Neurology and psychiatry already evaluated the patient and her workup was unremarkable including brain MRI, EEG, carotid duplex, echo. Urine culture is negative and she finished her treatment with UTI. also her benzodiazepines were stopped, still patient might have some elements of dementia, or toxic encephalopathy secondary to benzodiazepines which is stopped now. Discussed the case with psychiatric team and their input is appreciated, alban wood flores new onset adjust her medication and to monitor her for another 24 hours if she remains clinically stable and she cleared for discharge by neurology and psychiatry service then she can go home and follow-up as an outpatient. I discussed the case with the daughter Trina Objective - Vital Signs Vital signs: Vital Signs Temp 97.6 F 08/20/20 07:00 Pulse 60 08/20/20 07:00 Resp 18 08/20/20 07:00 BP 122/72 08/20/20 07:00 Pulse Ox 93 L 08/20/20 07:00 Intake & Output 08/19/20 08/20/20 08/20/20 18:59 06:59 18:59 Intake Total 180 Balance 180 Intake: Oral 180 Other: Voiding Method Toilet Toilet Toilet # Voids 3 3 - Exam GENERAL: The patient is alert and oriented x3, not in any acute distress. Well developed, well nourished. HEENT: Pupils are round and equally reacting to light. EOMI. No scleral icterus. No conjunctival pallor. Normocephalic, atraumatic. No pharyngeal erythema. No thyromegaly. CARDIOVASCULAR: S1 and S2 present. No murmurs, rubs, or gallops. PULMONARY: Chest is clear to auscultation, no wheezing or crackles. ABDOMEN: Soft, nontender, nondistended, normoactive bowel sounds. No palpable organomegaly. MUSCULOSKELETAL: No joint swelling or deformity. EXTREMITIES: No cyanosis, clubbing, or pedal edema. NEUROLOGICAL: Gross neurological examination did not reveal any focal deficits. SKIN: No rashes. no petechiae. - Labs CBC & Chem 7: 08/19/20 05:24 08/20/20 05:38 Labs: Abnormal Lab Results - Last 24 Hours (Table) 08/20/20 Range/Units 05:38 Anion Gap 12.20 H (4.00-12.00) mmol/L Est GFR (CKD-EPI)NonAf 54.7 L (60.0-200.0) Microbiology - Last 24 Hours (Table) 08/17/20 10:52 Blood Culture - Preliminary Blood No Growth after 72 hours Assessment and Plan Assessment: Periods of altered mental status secondary to metabolic and toxic encephalopathy. Improvement. However could be due to that she needs to be checked as an outpatient Acute urinary tract infection, finished therapy and antibiotics were discontinued, keep monitoring while off antibiotics Possible right internal carotid artery stenosis less than 50% however velocity showing normal and 50-70% Plan: This is a pleasant 74 years old female who presents with encephalopathy and patient finished treatment for UTI. Discontinue antibiotic. Urine culture is negative. We'll keep monitoring. Neurology service on the case. psychiatry service on the case Discontinue benzodiazepine including temazepam. Give 1 dose of Seroquel. Keep monitoring mental status closely Labs and medication were reviewed.. Continue same treatment. Continue with symptomatic treatment. Resume home medication. Monitor lytes and vitals. DVT and GI prophylaxis. Further recommendationsas per clinical course of the patient DVT prophylaxis: Subcutaneous heparin GI Prophylaxis: Ppi PT/OT: Home Prognosis is guarded Possible discharge in 24 hours if she remains stable
--- NOTE | 2020-08-20 14:38 | P.PN ---
Progress Note - Text Progress Note Date: 08/20/20 Interval History: Patient was seen today for psychiatric follow-up regarding patient's delirium. Patient was seen at the side of the bed with her daughter and [id number] visiting her. Patient's nurse states that patient was hallucinating yesterday evening and was acting bizarre and speaking into her call light. She was alert and oriented 3 and knows the current Pres. is. She was denying any overnight complaints and states that she slept throughout the night. She has limited insight into her current presentation and her delirium today. She was rambling at times and was fairly tangential and made some bizarre statements and even spoke about masturbation to sports writer. She is denying any depression or anxiety today. She was admitting to hallucinating and seeing her and son. Patient and daughters asked several questions or patient's medication and her condition. At this time patient denies any suicidal or homical ideations, intent or plan. Patient denies any auditory, visual hallucinations and denies any paranoia or delusions. Patient denies any side effects from the medications and has been compliant with meds. Mental Status Exam: General Appearance: Patient appears to be elderly, stated age is alert, directable, and cooperative. Behavior: Patient is calmly seated without any agitated behavior. Bizarre at times. Inappropriate at times. Speech: Patient's speech is fluent and nonpressured. Mood/Affect: Mood is improving mildly, affect is congruent and constricted. Suicidality/Homicidality: Patient denies having any suicidal or homicidal ideation intent or plan. Perceptions: Patient denies any visual hallucinations and denies any auditory hallucinations Though content/process: There is no evidence of any delusional thought content and thought process is linear and goal-directed. Inappropriate content at times. Memory and concentration: AOX3, grossly intact for the purposes of this session. Fair attention span. Can identify objects in the room. Can spell "world" backwards Judgment and insight: Limited however is Improving mildly Assessment Delirium likely secondary to infection (uti) History of depression Plan: -At this time patient DOES NOT meet criteria for inpatient psychiatric admission. -Delirium precautions recommended with patient including - avoiding use of narcotics and DIRECTOR LEARNING AND DEVELOPMENT sedatives, limit anticholinergic medications when possible, frequent re-orientation, minimize use of restraints, open window shades during the day and close them at night -Would recommend the following medication changes/additions: Continue with her home dose of Celexa. Discontinued Xanax and any other benzodiazepines as this may contribute to worsening delirium and confusion and possibly falls in elderly patients. Added scheduled Haldol 1mg BID for hallucinations/psychosis. Haldol IM or PO prn for agitation -foundry worker apprentice to provide patient with outpatient mental health/psychiatry resources for appropriate follow up upon discharge -Communicated plan to patient's nurse -Spoke with patient and daughters at the bedside about the plan and answered questions/concerns -Will follow along with patient tomorrow. -Please contact with any questions.
[2020-08-20] MEDS: haloperidoL 1 MG TAB PO SCH ×2 (16:00→21:29)
[2020-08-20] MEDS ORDERED: MELATONIN 3 MG TABLET PO SCH (21:00)
[2020-08-21] MEDS: SODIUM CHLORIDE 0.9% 1,000 ML IV SCH (06:09)
[2020-08-21] MEDS: PANTOPRAZOLE 40 MG TABLET PO SCH (07:40)
[2020-08-21] MEDS: amLODIPine 5 MG TAB PO SCH (08:52)
[2020-08-21] MEDS: CLOPIDOGREL 75 MG TAB PO SCH (08:52)
[2020-08-21] MEDS: haloperidoL 1 MG TAB PO SCH (08:53)
[2020-08-21] MEDS: PYRIDOXINE 50 MG TAB PO SCH (08:53)
[2020-08-21] MEDS: CITALOPRAM HYDROBROMIDE 20 MG TAB PO SCH (08:53)
[2020-08-21] MEDS: CYANOCOBALAMIN-FA-PYRIDOXINE 1 EACH TAB PO SCH (08:53)
[2020-08-21] MEDS: HEPARIN SODIUM,PORCINE/PF 5,000 UNIT/0.5 ML SYRINGE SQ SCH (08:55)
--- NOTE | 2020-08-21 10:22 | P.PN ---
Subjective Progress Note Date: 08/20/20 08/20/2020: Patient's family was also present today including her daughter and [id number]. Patient intermittently gets paranoid and delusional. Sometimes she thinks someone is trying to kill her. Sometimes she thinks her brother is in the hallway. However when psychiatrist arrives, patient is fully oriented and not delusional or paranoid. Patient currently not on any scheduled antipsychotic medication. Patient has received only one dose of Seroquel. Per family members, this issue has been going on for last 4-5 weeks. They inform me that patient already has been treated for UTI in the past. They are not very clear about the diagnosis yet. 08/19/2020: Patient offers no new complaints. Wants to go home. No visual hallucinations reported. Spoke to Dr. sexton. 08/18/2020 Patient was seen for a follow-up. Patient initially seen by Dr. Amari Pollard. Please refer to his note for details. Patient was admitted for altered mental status of 1 week duration with visual hallucination. Some concern about underlying cognitive impairment and delirium. Patient states that she wants to take shower as she is noticing "smell". She states "nothing going on, can't believe what is happening to her". She states that her brother is talking across the [place]. She still slightly delusional. Objective - Vital Signs Vital signs: Vital Signs Temp 97.5 F L 08/20/20 14:58 Pulse 65 08/20/20 14:58 Resp 16 08/20/20 14:58 BP 128/74 08/20/20 14:58 Pulse Ox 95 08/20/20 14:58 Intake & Output 08/20/20 08/20/20 08/21/20 06:59 18:59 06:59 Intake Total 380 Balance 380 Intake: Oral 380 Other: Voiding Method Toilet Toilet # Voids 3 2 - Exam On examination patient is alert and awake in no distress. She knows it is August 2020 and that she is in [facility] in [place]. Patient knows name of the current president. Speech and language functions are normal. Attention, concentration, fund of knowledge is adequate. Detail cognitive function testing deferred. Cranial nerves are normal. Muscle strength is normal. No ataxia. Tone and bulk of muscles normal. Gait appears normal. - Labs CBC & Chem 7: 08/19/20 05:24 08/20/20 05:38 Labs: Abnormal Lab Results - Last 24 Hours (Table) 08/20/20 Range/Units 05:38 Anion Gap 12.20 H (4.00-12.00) mmol/L Est GFR (CKD-EPI)NonAf 54.7 L (60.0-200.0) Microbiology - Last 24 Hours (Table) 08/17/20 10:52 Blood Culture - Preliminary Blood No Growth after 72 hours Assessment and Plan Assessment: Altered mental status for the past one weeks (having visual hallucination of her son who is for the past one year and having thought that her friend is going to harm her in the past couple month): Possibly delirium (especially with underlying UTI). Rule out underlying cognitive impairment/dementia Mild encephalopathy from underlying UTI Multiple vitamin deficiency B12, B6 and folate deficiency. Acute urinary tract infection, with negative cultures. Calcified granuloma at the periphery of the right lung base Per CXR Plan: * Patient continues to use to be slightly delusional. Psychiatry following the patient. Patient currently not on any scheduled antipsychotic medication. * Vitamin B12 361, folate 7.8, TSH normal 2.87, B6 is borderline 5 (5-50), vitamin B1 57 normal (38-122). methylmalonic acid still pending. We will start B12, folate and B6 replacement as they are on the lower limits of normal range. * MRI of the brain w/ and w/o revealed progressive white matter demyelination possibly due to chronic small vessel ischemic disease. There is age-related atrophy. No acute process. * EEG normal awake and drowsy. No epileptiform activity seen. * 2-D echo showed normal left-ventricular size, mild concentric LVH, EF is mildly impaired 45-50%. Mild aortic valve sclerosis. * Carotid Doppler revealed antegrade flow in the vertebral arteries. Less than 50% stenosis in both ICAs. Bilateral plaque formation. Right ICA has inc reased velocity. The images showed less than 50% stenosis but the velocity measurements suggest 50-70% stenosis of the right ICA. Continue Plavix 75 mg, Lipitor 40 mg. vascular surgery input appreciated. No indication for revascularization surgery. * Appreciate psychiatric input. Impression is cognitive disorder, not otherwise specified and rule out dementia versus delirium. Collateral history was recommended. It was also felt the patient cannot live on her own by herself because she is risk to herself. * Recommend patient to follow-up with a neurologist as outpatient for further workup of cognitive impairment/dementia within 1-2 weeks. Patient currently on Celexa 40 mg, Haldol when necessary. Benzodiazepines has been discontinued. I would recommend brain SPECT scan as outpatient to evaluate for possible dementia. * Defer the rest of medical management to the primary team. * Neurologically clear for discharge. Discussed with Dr. Sexton.
[2020-08-21] MEDS: MULTIVITAMINS, THERA 1 EACH TAB PO SCH (11:35)
[2020-08-21] MEDS: FOLIC ACID 1 MG TAB PO SCH (11:35)
[2020-08-21] MEDS: THIAMINE 100 MG TAB PO SCH (11:35)
--- NOTE | 2020-08-21 14:40 | P.PN ---
Progress Note - Text Progress Note Date: 08/21/20 Interval History: Patient was seen today for psychiatric follow-up regarding patient's delirium. Patient was seen at the side of the bed with her daughter. Patient's nurse states that she is doing much better today and less confused. Patient's daughter states that she is back to her baseline and is not complaining of any confusion or hallucinations today. Patient was appropriate with principal technical writer and joked around with him. She denied any overnight events and states that she slept well. She was focused on discharge today. She was alert and oriented 3 and knows the current Pres. is. She was a lot more cooperative and appropriate with principal technical writer. She is denying any depression or anxiety today. Patient and daughters asked several questions or patient's medication and her condition. At this time patient denies any suicidal or homical ideations, intent or plan. Patient denies any auditory, visual hallucinations and denies any paranoia or delusions. Patient denies any side effects from the medications and has been compliant with meds. Mental Status Exam: General Appearance: Patient appears to be elderly, stated age is alert, directable, and cooperative. Behavior: Patient is calmly seated without any agitated behavior. More appropriate today. Speech: Patient's speech is fluent and nonpressured. Mood/Affect: Mood is improving mildly, affect is congruent and constricted. Suicidality/Homicidality: Patient denies having any suicidal or homicidal ideation intent or plan. Perceptions: Patient denies any visual hallucinations and denies any auditory hallucinations Though content/process: There is no evidence of any delusional thought content and thought process is linear and goal-directed. Memory and concentration: AOX3, grossly intact for the purposes of this session. Fair attention span. Judgment and insight: Improved Assessment Delirium likely secondary to infection (uti) History of depression Plan: -At this time patient DOES NOT meet criteria for inpatient psychiatric admission. -Delirium precautions recommended with patient including - avoiding use of n arcotics and FURNACE [employer]ER sedatives, limit anticholinergic medications when possible, frequent re-orientation, minimize use of restraints, open window shades during the day and close them at night -Would recommend the following medication changes/additions: Continue with her home dose of Celexa. Can continue with scheduled Haldol 1 mg twice a day for psychosis/delirium for 6 days and then to be discontinued. -cone worker to provide patient with outpatient mental health/psychiatry resources for appropriate follow up upon discharge -Communicated plan to patient's nurse -Spoke with patient and daughter at the bedside about the plan and answered questions/concerns -At this time psychiatry will sign off -Please contact with any questions.
[2020-08-21 15:14] VITALS: BP 168/80; PULSE 54; RESP 16; TEMP 97.9
--- NOTE | 2020-08-21 15:25 | P.PN ---
Subjective Progress Note Date: 08/21/20 08/20/2020: Patient was seen for a follow-up. Patient wants to go home. Offers no complaints. No further hallucinations or delusions. 08/19/2020: Patient offers no new complaints. Wants to go home. No visual hallucinations reported. Spoke to Dr. howard. 08/18/2020 Patient was seen for a follow-up. Patient initially seen by Dr. Amari Pollard. Please refer to his note for details. Patient was admitted for altered mental status of 1 week duration with visual hallucination. Some concern about underlying cognitive impairment and delirium. Patient states that she wants to take shower as she is noticing "smell". She states "nothing going on, can't believe what is happening to her". She states that her brother is talking across the [place]. She still slightly delusional. Objective - Vital Signs Vital signs: Vital Signs Temp 97.9 F 08/21/20 15:00 Pulse 54 L 08/21/20 15:00 Resp 16 08/21/20 15:00 BP 168/80 08/21/20 15:00 Pulse Ox 95 08/21/20 15:00 Intake & Output 08/20/20 08/21/20 08/21/20 18:59 06:59 18:59 Intake Total 498 424 Balance 498 424 Intake: Oral 498 424 Other: Voiding Method Toilet Toilet Toilet # Voids 2 2 - Exam Patient's mental status, speech and language functions are normal. Detailed mental status testing was performed today. Patient scored 30/30 on MMSE. Patient has negative visuospatial apraxia. Patient has mildly positive palmomental reflex. Clock drawing test was perfect. Please see the picture in the scanned documents section. - Labs CBC & Chem 7: 08/19/20 05:24 08/20/20 05:38 Labs: Microbiology - Last 24 Hours (Table) 08/17/20 10:52 Blood Culture - Preliminary Blood No Growth after 96 hours Assessment and Plan Assessment: Probable delirium, unclear etiology. Probably related to UTI. Patient performed fairly well on cognitive function testing at this time. Mild encephalopathy from underlying UTI Calcified granuloma at the periphery of the right lung base Per CXR Plan: * Performed cognitive function testing and she performed very well with scoring 30/30 on MMSE and normal clock drawing test. I think patient has delirium from either UTI or from vitamin deficiency. * Vitamin B12 361, folate 7.8, TSH normal 2.87, methylmalonic acid still pending. We will start B12 and folate as they are on the lower limits of normal range. * MRI of the brain w/ and w/o revealed progressive white matter demyelination possibly due to chronic small vessel ischemic disease. There is age-related atrophy. No acute process. * EEG normal awake and drowsy. No epileptiform activity seen. * 2-D echo showed normal left-ventricular size, mild concentric LVH, EF is mildly impaired 45-50%. Mild aortic valve sclerosis. * Carotid Doppler revealed antegrade flow in the vertebral arteries. Less than 50% stenosis in both ICAs. Bilateral plaque formation. Right ICA has increased velocity. The images showed less than 50% stenosis but the velocity measurements suggest 50-70% stenosis of the right ICA. Continue Plavix 75 mg, Lipitor 40 mg. vascular surgeries in the patient, appreciate input. * Appreciate psychiatric input. Impression is cognitive disorder, not otherwise specified and rule out dementia versus delirium. Collateral history was recommended. It was also felt the patient cannot live on her own by herself because she is risk to herself. * Recommend patient to follow-up with a neurologist as outpatient if she continues to have issues with mental function/cognitive functions. I would not place her on Aricept at this time. Patient currently on Celexa 40 mg, Haldol when necessary. Benzodiazepines has been discontinued. Only if symptoms persist, I would recommend brain SPECT scan as outpatient to evaluate for possible dementia. * Neurologically clear for discharge. Discussed with patient's daughter in detail.
--- NOTE | 2020-08-22 00:53 | P.DS ---
Providers Date of admission: 08/17/20 11:08 Attending physician: Len Self Consults: 08/17/20 04:08 Consult Physician Routine Consulting Provider: Amari Pollard Consult Reason/Comments: altered mental status Do you want consulting provider notified?: Yes 08/17/20 04:09 Consult Physician Routine Consulting Provider: Rhett Villareal Consult Reason/Comments: altered mental status Do you want consulting provider notified?: Yes 08/18/20 16:19 Consult Physician Routine Consulting Provider: Denilson Drake Consult Reason/Comments: arrhythmia, carotid stenosis Do you want consulting provider notified?: Yes Primary care physician: Miladis [facility] Course: Diagnoses: Periods of altered mental status secondary to metabolic and toxic encephalopathy. Improved. Limits of dementia may be contributing and instructed patient and daughter to follow up as an outpatient Acute urinary tract infection, finished therapy and antibiotics were discontinued, keep monitoring while off antibiotics Possible right internal carotid artery stenosis less than 50% however velocity showing normal and 50-70%. No surgical intervention peripheral vascular surgery Low normal vitamin B12, replaced Hospital course: This is a pleasant 74 years old female with multiple medical problems presents with. So confusion and suspected to have acute urinary tract infection, she was admitted and treated with ceftriaxone, with neurology and vascular surgery team were consulted. When I saw the patient she was alert and awake and call him, however later on during the day she become agitated so patient came to the hosp [facility] for close monitoring for now. Patient got 1 dose of 15 mg temazepam 2 night, which may contribute to her toxic encephalopathy . Will benzodiazepines stopped. Because it might contribute to her delirium. Brain MRI showing cerebral atrophy. EEG is normal. Ejection fraction 40-45%. Pronecalcitonin only slightly up at 0.10. Patient has been evaluated by neurology and psychiatry service and her workup was unremarkable including brain MRI, EEG, carotid duplex, echo. Urine culture is negative and she finished her treatment with UTI. Psychiatrist at the distal dorsal 1 mg twice daily, patient showed improvement with no more periods of confusion for more than 24 hours Patient denies any other symptoms, no chest pain or dyspnea. No abdominal pain. No nausea vomiting. No change in urine or bowel habits. No fever. Intake is very eager to go home today I discussed the case with her daughter Trina management plan Patient was cleared for discharge by all consultants including psychiatry and neurology services Problems and management plan were discussed with the patient and he verbalized understanding and acceptance Patient was found stable and can be discharged home however he needs follow-up as an outpatient. Patient was instructed to follow up with PCP Dr. Blanton within one week and patient agrees Also patient was instructed to follow up with Dr. Drake for 1 week to follow-up with her Holter of her heart and she agrees Also patient was instructed to follow up with neurologist Dr. Carmona/Dr. Pena/Dr. Rocha well as an outpatient in 2 weeks, also with Dr. Arzate as an outpatient and patient agrees Physical exam Gen: patient is a AAOx3, no distress CVS: S1-S2, RRR, no murmur Lungs: B/L CTA, no wheezing Abdomen: soft, no distention, no tenderness, positive bowel sounds Extremity: no leg edema or induration Time spent more than 35 minutes Patient Condition at Discharge: Fair Plan - Discharge Summary Discharge Rx Participant: No New Discharge Prescriptions: New Thiamine [Vitamin B-1] 100 mg PO DAILY@1200 #30 tab Pyridoxine [Vitamin B-6] 50 mg PO DAILY 7 Days #7 tab Cefuroxime [Ceftin] 250 mg PO BID 3 Days #6 tab Acetaminophen Tab [Tylenol] 650 mg PO Q6HR PRN tab PRN Reason: Mild Pain Or Fever > 100.5 Cyanocobalamin [Vitamin B-12] 1,000 mcg PO DAILY #60 tablet Folic Acid 1 mg PO DAILY@1200 7 Days #7 tab haloperidoL [Haldol] 1 mg PO BID #60 tab Melatonin 3 mg PO HS PRN #30 tablet PRN Reason: Insomnia Continue amLODIPine BESYLATE [Norvasc] 5 mg PO BID Citalopram Hydrobromide [CeleXA] 40 mg PO DAILY Omeprazole 20 mg PO DAILY Clopidogrel [Plavix] 75 mg PO DAILY #30 tab Atorvastatin [Lipitor] 40 mg PO HS Ergocalciferol [Vitamin D2 (1250 Mcg = 13468 Iu)] 1,250 mcg PO FR Discontinued Melatonin 20 mg PO HS PRN PRN Reason: Insomnia Discharge Medication List amLODIPine BESYLATE [Norvasc] 5 mg PO BID 10/14/15 [History] Citalopram Hydrobromide [CeleXA] 40 mg PO DAILY 02/23/17 [History] Omeprazole 20 mg PO DAILY 02/23/17 [History] Clopidogrel [Plavix] 75 mg PO DAILY #30 tab 02/24/17 [Rx] Atorvastatin [Lipitor] 40 mg PO HS 07/31/20 [History] Ergocalciferol [Vitamin D2 (1250 Mcg = 69244 Iu)] 1,250 mcg PO FR 08/17/20 [H istory] Acetaminophen Tab [Tylenol] 650 mg PO Q6HR PRN tab 08/19/20 [Rx] Cefuroxime [Ceftin] 250 mg PO BID 3 Days #6 tab 08/19/20 [Rx] Cyanocobalamin [Vitamin B-12] 1,000 mcg PO DAILY #60 tablet 08/19/20 [Rx] Thiamine [Vitamin B-1] 100 mg PO DAILY@1200 #30 tab 08/19/20 [Rx] Folic Acid 1 mg PO DAILY@1200 7 Days #7 tab 08/21/20 [Rx] Melatonin 3 mg PO HS PRN #30 tablet 08/21/20 [Rx] Pyridoxine [Vitamin B-6] 50 mg PO DAILY 7 Days #7 tab 08/21/20 [Rx] haloperidoL [Haldol] 1 mg PO BID #60 tab 08/21/20 [Rx] Follow up Appointment(s)/Referral(s): [facility], [NON-STAFF] - 08/23/20 (First available appointment, you will recieved a phone call regarding the time of the appointment.) Miladis Blanton MD [Primary Care Provider] - 08/26/20 1:30 pm Matthias Easley MD [REFERRING] - 2 Weeks (neurologist ) Denilson Drake MD [STAFF PHYSICIAN] - 09/08/20 11:45 am Jorge Juan DO [STAFF PHYSICIAN] - 09/16/20 3:45 pm Maria Alejandra Carmona MD [Medical Doctor] - 2 Weeks (neurologist for your delirium when you were in the hospital) Mickey Pena DO [STAFF PHYSICIAN] - 2 Weeks (neurologist ) Patient Instructions/Handouts: Altered Mental Status (ED) Activity/Diet/Wound Care/Special Instructions: Appointments to be made prior to discharge Heart healthy diet Activity is restricted till you see your doctor Discharge/Stand Alone Forms: Who Do I Call? Discharge Disposition: HOME WITH HOME HEALTH SERVICES
[2020-08-22] MEDS ORDERED: ERGOCALCIFEROL 1,250 MCG (50,000 IU) CAPSULE PO SCH (09:00)
--- NOTE | 2020-08-22 12:32 | P.EN ---
Today I called and spoke to the daughter Tanvi Davis at [phone] and discussed with her the recommendation of the psychiatrist to continue Haldol scheduled dose 1 mg twice daily for 6 days and then discontinue, I asked her to discard the rest of the prescription which I gave her for 30 days, Kell verbalized understanding and said this information back to me correctly
--- NOTE | 2020-09-15 13:26 | CDI ---
Documentation Clarification Form Date: 09/15/20 From: Renu Wei Admit Date: 08/17/2020 11:08:00 AM Patient Name: Julia Martinez Visit Number: [id number] Discharge Date: 08/21/2020 04:13:00 PM ATTENTION: The Clinical Documentation Specialists (CDI) and [facility] Coding Staff appreciate your assistance in clarifying documentation. Please respond to the clarification below the line at the bottom and electronically sign. The CDI & [facility] Coding staff will review the response and follow-up if needed. Please note: Queries are made part of the Legal Health Record. If you have any questions, please contact the author of this message via ITS. Dr. Nugent E Sheet, Probable UTI with sepsis is documented in H&P and PN 08/[address] Self, but is not noted in subsequent documentation. Clarification is requested. History/Risk Factors: toxic encephalopathy, dementia, CAD, COPD, HTN Clinical Indicators: WBC-9.1, Neutrophils-70, no lactic acid, T-98.2, P-72, R- 19, BP-156/84, O2-97, blood culture-negative, Urine culture-negative Treatment: IV fluids, IV Rocephin Please clarify if the sepsis is: [ ] Sepsis confirmed, remains under treatment [ ] Sepsis ruled out [ ] Other condition, please specify [ ] Unable to determine no sepsis MTDD
== END 2020-08-21 16:13 | disposition home health service (06) | DRG 689 ==
LOC: EC 00:52 → 6NMEDSUR 04:08 → OBSVTOIN 11:08
PROVIDERS: ADMIT Hospitalist; ATTEND Hospitalist
DX: N39.0 Urinary tract infection, site not specified (principal); G92 Toxic encephalopathy; I67.89 Other cerebrovascular disease; F03.90 Unspecified dementia, unspecified severity, without behavioral disturbance, psychotic disturbance, mood disturbance, and anxiety; I25.82 Chronic total occlusion of coronary artery; E03.9 Hypothyroidism, unspecified; I25.10 Atherosclerotic heart disease of native coronary artery without angina pectoris; J84.10 Pulmonary fibrosis, unspecified; J44.9 Chronic obstructive pulmonary disease, unspecified; E89.2 Postprocedural hypoparathyroidism; Z20.822 Contact with and (suspected) exposure to COVID-19; I10 Essential (primary) hypertension; I65.21 Occlusion and stenosis of right carotid artery; E53.8 Deficiency of other specified B group vitamins; E53.1 Pyridoxine deficiency; E78.5 Hyperlipidemia, unspecified; I25.2 Old myocardial infarction; F32.9 Major depressive disorder, single episode, unspecified; F41.9 Anxiety disorder, unspecified; K59.00 Constipation, unspecified; M85.80 Other specified disorders of bone density and structure, unspecified site; H54.7 Unspecified visual loss; H91.90 Unspecified hearing loss, unspecified ear; R44.1 Visual hallucinations; F17.210 Nicotine dependence, cigarettes, uncomplicated; Z71.6 Tobacco abuse counseling; Z79.02 Long term (current) use of antithrombotics/antiplatelets; Z79.899 Other long term (current) drug therapy; Z87.440 Personal history of urinary (tract) infections; Z95.5 Presence of coronary angioplasty implant and graft; Z87.2 Personal history of diseases of the skin and subcutaneous tissue; Z98.890 Other specified postprocedural states; Z88.8 Allergy status to other drugs, medicaments and biological substances; Z82.49 Family history of ischemic heart disease and other diseases of the circulatory system
CPT/HCPCS: 36415; 70450; 70553; 71046; 80048; 80053; 80076; 80306; 81001; 82607; 82746; 83735; 84145; 84207; 84425; 84443; 84484; 85025; 85610; 85730; 87040; 87086; 87635; 93005; 93306; 93880; 94760; 95816; 99285

== ENCOUNTER 2021-01-25 13:41 | Emergency (ER) | payer MEDICARE ==
[2021-01-25 14:14] VITALS: BP 144/80; RESP 18; TEMP 97.9
[2021-01-25 15:05] VITALS: PULSE 86
[2021-01-25] MEDS ORDERED: SODIUM CHLORIDE 0.9% 1,000 ML IV STA (15:15)
[2021-01-25 15:51] LABS: Basophils % (A) 0 %; Eosinophils % (A) 0 %; HCT 44.4 % (34.0-46.0); HGB 14.4 gm/dL (11.4-16.0); Lymphocytes % (A) 12 %; MCHC 32.5 g/dL (31.0-37.0); MCV 89.3 fL (80.0-100.0); Monocytes # (A) 0.2 k/uL (0-1.0); Monocytes % (A) 2 %; Neutrophils # (A) 7.4 k/uL (1.3-7.7); Neutrophils % (A) 85 %; Platelet Count 340 k/uL (150-450); RBC 4.98 m/uL (3.80-5.40); RDW 12.5 % (11.5-15.5); WBC 8.7 k/uL (3.8-10.6)
[2021-01-25 16:00] LABS: Albumin 4.3 g/dL (3.5-5.0); Calcium 10.6 mg/dL (8.4-10.2); Potassium 4.1 mmol/L (3.5-5.1); Total Bilirubin 0.3 mg/dL (0.2-1.3)
[2021-01-25 16:09] LABS: INR 0.9 (<1.2); Partial Thromboplastin Time 20.1 sec (22.0-30.0); Prothrombin Time 10.1 sec (9.0-12.0)
--- NOTE | 2021-01-25 16:11 | XR ---
EXAMINATION TYPE: XR chest 2V DATE OF EXAM: 01/25/2021 COMPARISON: 08/17/2020 HISTORY: Weakness TECHNIQUE: 2 views FINDINGS: There is no heart failure nor confluent pneumonic infiltrate. Costophrenic angles are clear . There is 1.3 cm calcified granuloma right lower lobe. Bony thorax appears intact. IMPRESSION: No active cardiopulmonary disease. Normal heart. No change.
[2021-01-25 16:49] LABS: Appearance,Urine Clear (Clear); Bilirubin,Urine Negative (Negative); Blood,Urine Negative (Negative); Color,Urine Yellow; Glucose,Urine (UA) Negative (Negative); Ketones,Urine Negative (Negative); Leukocyte Esterase,Urine Trace (Negative); Mucus,Urine Rare /hpf; Nitrite,Urine Negative (Negative); PH, Urine 5.5 (5.0-8.0); Protein,Urine Negative (Negative); RBC,Urine <1 /hpf (0-5); Specific Gravity,Urine 1.016 (1.001-1.035); Squamous Epithelial Cell,Urine <1 /hpf (0-4); Urobilinogen,Urine <2.0 mg/dL (<2.0); WBC,Urine 2 /hpf (0-5)
--- NOTE | 2021-01-25 17:01 | ED ---
Weakness HPI - General Chief complaint: Weakness Stated complaint: Cough,Weakness Time Seen by Provider: 01/25/21 15:10 Source: patient, RN notes reviewed Mode of arrival: ambulatory Limitations: no limitations - History of Present Illness Initial comments: Patient is a 75-year-old female that presents to the emergency room complaining of not feeling well for the past several days. She notes that she's had a cough and some mild upper respiratory tract symptoms. She notes she does have a history of COPD but does not use oxygen at home. Patient states that she went to an urgent care got steroids and antibiotic prophylactically for upper respiratory tract infection. She was otherwise well-appearing in no apparent distress. She notes that she is just feeling under the weather. She denied chest pain headache nausea vomiting diarrhea constipation fever fatigue chills. - Related Data Home Medications Medication Instructions Recorded Confirmed amLODIPine BESYLATE [Norvasc] 5 mg PO BID 10/14/15 01/25/21 Omeprazole 20 mg PO DAILY 02/23/17 01/25/21 Atorvastatin [Lipitor] 40 mg PO HS 07/31/20 01/25/21 Ergocalciferol [Vitamin D2 (1250 1,250 mcg PO FR 08/17/20 01/25/21 Mcg = 99850 Iu)] Aspirin EC [Ecotrin Low Dose] 81 mg PO DAILY 01/25/21 01/25/21 Doxycycline Hyclate 100 mg PO Q12H 01/25/21 01/25/21 Reliance Carbonate [Reliance 300 mg PO HS 01/25/21 01/25/21 Carbonate ER] Melatonin 5 mg PO HS 01/25/21 01/25/21 Thiamine [Vitamin B-1] 100 mg PO DAILY 01/25/21 01/25/21 predniSONE 50 mg PO DAILY 01/25/21 01/25/21 Previous Rx's Medication Instructions Recorded Clopidogrel [Plavix] 75 mg PO DAILY #30 tab 02/24/17 Allergies Allergy/AdvReac Type Severity Reaction Status Date / Time zolpidem tartrate AdvReac Severe Hallucinati Verified 01/25/21 16:42 [From Marlene] ons Review of Systems ROS Statement: Those systems with pertinent positive or pertinent negative responses have been documented in the HPI. ROS Other: All systems not noted in ROS Statement are negative. Past Medical History Past Medical History: Coronary Artery Disease (CAD), Chest Pain / Angina, COPD, Hypertension, Syncope, Thyroid Disorder Additional Past Medical History / Comment(s): parathyroid nodules, high calcium Last Myocardial Infarction Date:: 12/2014 History of Any Multi-Drug Resistant Organisms: None Reported Past Surgical History: Heart Catheterization With Stent Additional Past Surgical History / Comment(s): cyst removed from back, heart cath with a stent placed 12/2014. parathyroid removal Past Anesthesia/Blood Transfusion Reactions: No Reported Reaction Date of Last Stent Placement:: 12/03/2014 Past Psychological History: Anxiety, Depression Smoking Status: Former smoker Past Alcohol Use History: Occasional, Rare Past Drug Use History: None Reported - Past Family History Father Family Medical History: No Reported History Additional Family Medical History / Comment(s): FATHER AT AGE 70. PT UNSURE WHAT EXACTLY HE FROM. Mother Family Medical History: Congestive Heart Failure (CHF) Additional Family Medical History / Comment(s): MOTHER AT AGE 91 YRS. General Exam Limitations: no limitations General appearance: alert, in no apparent distress Head exam: Present: atraumatic, normocephalic, normal inspection Eye exam: Present: normal appearance, PERRL, EOMI. Absent: scleral icterus, conjunctival injection, periorbital swelling ENT exam: Present: normal exam, mucous membranes moist Neck exam: Present: normal inspection Respiratory exam: Present: normal lung sounds bilaterally. Absent: respiratory distress, wheezes, rales, rhonchi, stridor Cardiovascular Exam: Present: regular rate, normal rhythm, normal heart sounds. Absent: systolic murmur, diastolic murmur, rubs, gallop, clicks GI/Abdominal exam: Present: soft, normal bowel sounds. Absent: distended, tenderness, guarding, rebound, rigid Extremities exam: Present: normal inspection, full ROM, normal capillary refill. Absent: tenderness, pedal edema, joint swelling, calf tenderness Neurological exam: Present: alert, oriented X3 Psychiatric exam: Present: normal affect, normal mood Skin exam: Present: warm, dry, intact, normal color. Absent: rash Course Vital Signs 01/25/21 01/25/21 14:11 15:02 Temperature 97.9 F Pulse Rate 64 Pulse Rate [ 86 Left Radial] Respiratory 18 18 Rate Blood Pressure 144/80 O2 Sat by Pulse 96 Oximetry EKG Findings - EKG Comments: EKG Findings:: Ventricular rate 49 bpm, PA interval 182 ms, QRS duration 104 ms, QTC 408 ms, PRT axes 42/4/-21. Sinus bradycardia premature atrial complex, ST and T wave abnormality consider inferior ischemia, ST and T wave abnormality consider anterior lateral ischemia, abnormal ECG. Medical Decision Making - Medical Decision Making 75-year-old female complaining of being under the weather and not feeling well. Labs, EKG, cardiac care nurse, chest x-ray, 1 L normal saline ordered. Labs unremarkable, mildly dehydrated. EKG similar to previous studies. Chest x-ray no acute card up on her process. Patient most likely strained sitting a common cold/upper respiratory tract infection. Case discussed with Dr. Ceballos, patient can discharge home. - Lab Data Result diagrams: 01/25/21 15:47 01/25/21 15:47 Lab Results 01/25/21 01/25/21 01/25/21 Range/Units 14:17 15:47 15:47 WBC 8.7 (3.8-10.6) k/uL RBC 4.98 (3.80-5.40) m/uL Hgb 14.4 (11.4-16.0) gm/dL Hct 44.4 (34.0-46.0) % MCV 89.3 (80.0-100.0) fL MCH 29.0 (25.0-35.0) pg MCHC 32.5 (31.0-37.0) g/dL RDW 12.5 (11.5-15.5) % Plt Count 340 (150-450) k/uL MPV 8.0 Neutrophils % 85 % Lymphocytes % 12 % Monocytes % 2 % Eosinophils % 0 % Basophils % 0 % Neutrophils # 7.4 (1.3-7.7) k/uL Lymphocytes # 1.0 (1.0-4.8) k/uL Monocytes # 0.2 (0-1.0) k/uL Eosinophils # 0.0 (0-0.7) k/uL Basophils # 0.0 (0-0.2) k/uL PT 10.1 (9.0-12.0) sec INR 0.9 (<1.2) APTT 20.1 L (22.0-30.0) sec Sodium (137-145) mmol/L Potassium (3.5-5.1) mmol/L Chloride (98-107) mmol/L Carbon Dioxide (22-30) mmol/L Anion Gap mmol/L BUN (7-17) mg/dL Creatinine (0.52-1.04) mg/dL Est GFR (CKD-EPI)AfAm (>60 ml/min/1.73 sqM) Est GFR (CKD-EPI)NonAf (>60 ml/min/1.73 sqM) Glucose (74-99) mg/dL Plasma Lactic Acid Geoffrey (0.7-2.0) mmol/L Calcium (8.4-10.2) mg/dL Total Bilirubin (0.2-1.3) mg/dL AST (14-36) U/L ALT (4-34) U/L Alkaline Phosphatase (38-126) U/L Troponin I (0.000-0.034) ng/mL Total Protein (6.3-8.2) g/dL Albumin (3.5-5.0) g/dL Urine Color Urine Appearance (Clear) Urine pH (5.0-8.0) Ur Specific [place] (1.001-1.035) Urine Protein (Negative) Urine Glucose (UA) (Negative) Urine Ketones (Negative) Urine Blood (Negative) Urine Nitrite (Negative) Urine Bilirubin (Negative) Urine Urobilinogen (<2.0) mg/dL Ur Leukocyte Esterase (Negative) Urine RBC (0-5) /hpf Urine WBC (0-5) /hpf Ur Squamous Epith Cells (0-4) /hpf Urine Mucus (None) /hpf Influenza Type A (PCR) Not Detected (Not Detectd) Influenza Type B (PCR) Not Detected (Not Detectd) RSV (PCR) Not Detected (Not Detectd) SARS-CoV-2 (PCR) Not Detected (Not Detectd) 01/25/21 01/25/21 01/25/21 Range/Units 15:47 15:47 15:47 WBC (3.8-10.6) k/uL RBC (3.80-5.40) m/uL Hgb (11.4-16.0) gm/dL Hct (34.0-46.0) % MCV (80.0-100.0) fL MCH (25.0-35.0) pg MCHC (31.0-37.0) g/dL RDW (11.5-15.5) % Plt Count (150-450) k/uL MPV Neutrophils % % Lymphocytes % % Monocytes % % Eosinophils % % Basophils % % Neutrophils # (1.3-7.7) k/uL Lymphocytes # (1.0-4.8) k/uL Monocytes # (0-1.0) k/uL Eosinophils # (0-0.7) k/uL Basophils # (0-0.2) k/uL PT (9.0-12.0) sec INR (<1.2) APTT (22.0-30.0) sec Sodium 138 (137-145) mmol/L Potassium 4.1 (3.5-5.1) mmol/L Chloride 103 (98-107) mmol/L Carbon Dioxide 27 (22-30) mmol/L Anion Gap 8 mmol/L BUN 19 H (7-17) mg/dL Creatinine 0.86 (0.52-1.04) mg/dL Est GFR (CKD-EPI)AfAm 76 (>60 ml/min/1.73 sqM) Est GFR (CKD-EPI)NonAf 66 (>60 ml/min/1.73 sqM) Glucose 118 H (74-99) mg/dL Plasma Lactic Acid Geoffrey 1.1 (0.7-2.0) mmol/L Calcium 10.6 H (8.4-10.2) mg/dL Total Bilirubin 0.3 (0.2-1.3) mg/dL AST 26 (14-36) U/L ALT 19 (4-34) U/L Alkaline Phosphatase 107 (38-126) U/L Troponin I <0.012 (0.000-0.034) ng/mL Total Protein 7.0 (6.3-8.2) g/dL Albumin 4.3 (3.5-5.0) g/dL Urine Color Urine Appearance (Clear) Urine pH (5.0-8.0) Ur Specific [place] (1.001-1.035) Urine Protein (Negative) Urine Glucose (UA) (Negative) Urine Ketones (Negative) Urine Blood (Negative) Urine Nitrite (Negative) Urine Bilirubin (Negative) Urine Urobilinogen (<2.0) mg/dL Ur Leukocyte Esterase (Negative) Urine RBC (0-5) /hpf Urine WBC (0-5) /hpf Ur Squamous Epith Cells (0-4) /hpf Urine Mucus (None) /hpf Influenza Type A (PCR) (Not Detectd) Influenza Type B (PCR) (Not Detectd) RSV (PCR) (Not Detectd) SARS-CoV-2 (PCR) (Not Detectd) 01/25/21 Range/Units 16:20 WBC (3.8-10.6) k/uL RBC (3.80-5.40) m/uL Hgb (11.4-16.0) gm/dL Hct (34.0-46.0) % MCV (80.0-100.0) fL MCH (25.0-35.0) pg MCHC (31.0-37.0) g/dL RDW (11.5-15.5) % Plt Count (150-450) k/uL MPV Neutrophils % % Lymphocytes % % Monocytes % % Eosinophils % % Basophils % % Neutrophils # (1.3-7.7) k/uL Lymphocytes # (1.0-4.8) k/uL Monocytes # (0-1.0) k/uL Eosinophils # (0-0.7) k/uL Basophils # (0-0.2) k/uL PT (9.0-12.0) sec INR (<1.2) APTT (22.0-30.0) sec Sodium (137-145) mmol/L Potassium (3.5-5.1) mmol/L Chloride (98-107) mmol/L Carbon Dioxide (22-30) mmol/L Anion Gap mmol/L BUN (7-17) mg/dL Creatinine (0.52-1.04) mg/dL Est GFR (CKD-EPI)AfAm (>60 ml/min/1.73 sqM) Est GFR (CKD-EPI)NonAf (>60 ml/min/1.73 sqM) Glucose (74-99) mg/dL Plasma Lactic Acid Geoffrey (0.7-2.0) mmol/L Calcium (8.4-10.2) mg/dL Total Bilirubin (0.2-1.3) mg/dL AST (14-36) U/L ALT (4-34) U/L Alkaline Phosphatase (38-126) U/L Troponin I (0.000-0.034) ng/mL Total Protein (6.3-8.2) g/dL Albumin (3.5-5.0) g/dL Urine Color Yellow Urine Appearance Clear (Clear) Urine pH 5.5 (5.0-8.0) Ur Specific [place] 1.016 (1.001-1.035) Urine Protein Negative (Negative) Urine Glucose (UA) Negative (Negative) Urine Ketones Negative (Negative) Urine Blood Negative (Negative) Urine Nitrite Negative (Negative) Urine Bilirubin Negative (Negative) Urine Urobilinogen <2.0 (<2.0) mg/dL Ur Leukocyte Esterase Trace H (Negative) Urine RBC <1 (0-5) /hpf Urine WBC 2 (0-5) /hpf Ur Squamous Epith Cells <1 (0-4) /hpf Urine Mucus Rare H (None) /hpf Influenza Type A (PCR) (Not Detectd) Influenza Type B (PCR) (Not Detectd) RSV (PCR) (Not Detectd) SARS-CoV-2 (PCR) (Not Detectd) - EKG Data -: EKG Interpreted by Sd EKG shows normal: sinus rhythm Rate: bradycardia EKG Comments: Ventricular rate 49 bpm, PA interval 182 ms, QRS duration 104 ms, QTC 408 ms, PRT axes 42/4/-21. Sinus bradycardia premature atrial complex, ST and T wave abnormality consider inferior ischemia, ST and T wave abnormality consider an terior lateral ischemia, abnormal ECG. - Radiology Data Radiology results: report reviewed, image reviewed Chest x-ray: No active cardiopulmonary disease. Normal heart. No change. Disposition Clinical Impression: Upper respiratory tract infection Disposition: HOME SELF-CARE Condition: Stable Instructions (If sedation given, give patient instructions): Upper Respiratory Infection (ED) Additional Instructions: Please return to the Emergency Department if symptoms worsen or any other concerns. Follow-up with primary care 1-2 days. Finishing antibiotics as prescribed. Is patient prescribed a controlled substance at d/c from ED?: No Referrals: Miladis Blanton MD [Primary Care Provider] - 1-2 days Time of Disposition: 17:27
== END 2021-01-25 17:49 | disposition home or self-care (01) ==
LOC: EC 13:41
DX: J06.9 Acute upper respiratory infection, unspecified (principal); I10 Essential (primary) hypertension; I25.10 Atherosclerotic heart disease of native coronary artery without angina pectoris; I25.2 Old myocardial infarction; J44.9 Chronic obstructive pulmonary disease, unspecified; F32.9 Major depressive disorder, single episode, unspecified; F41.9 Anxiety disorder, unspecified; Z79.52 Long term (current) use of systemic steroids; Z79.02 Long term (current) use of antithrombotics/antiplatelets; Z79.82 Long term (current) use of aspirin; Z79.899 Other long term (current) drug therapy; Z87.891 Personal history of nicotine dependence; Z82.49 Family history of ischemic heart disease and other diseases of the circulatory system; Z88.8 Allergy status to other drugs, medicaments and biological substances; Z20.822 Contact with and (suspected) exposure to COVID-19
CPT/HCPCS: 36415; 71046; 80053; 81001; 83605; 84484; 85025; 85610; 85730; 87636; 93005; 96360; 99284

== ENCOUNTER 2022-06-15 07:57 | Day surgery (SDC) | payer MEDICARE ==
[~2022-06-15 07:57] MED LIST: ALPRAZolam 0.25 MG TAB PO PRN; ALPRAZolam 0.5 MG TAB PO PRN; ASPIRIN 325 MG TAB PO ONE; ATORVASTATIN 80 MG TAB PO ONE; HEPARIN SODIUM,PORCINE 10,000 UNIT in SODIUM CHLORIDE 0.9% 1,000 ML IRRIGATION PRN; HEPARIN SODIUM,PORCINE 2,500 UNIT in SODIUM CHLORIDE 0.9% 250 ML IRRIGATION PRN; NITROGLYCERIN SL TABS 0.4 MG TAB SUBLINGUAL PRN; SODIUM CHLORIDE 0.9% 1,000 ML in EMPTY BAG 1 BAG IV SCH
[2022-06-15 08:20] VITALS: RESP 16; TEMP 97.1
[2022-06-15] MEDS ORDERED: VERAPAMIL 2.5 MG/ML 2 ML AMP ONE (08:43)
[2022-06-15] MEDS ORDERED: HEPARIN SODIUM 1,000 UN/ML (10ML VL) ONE (08:49)
[2022-06-15] MEDS ORDERED: MIDAZOLAM 2 MG/2 ML VIAL IVP ONE (09:07)
[2022-06-15] MEDS ORDERED: LIDOCAINE 1% INJ 10MG/ML (5 ML VIAL-PF) SQ ONE (09:12)
[2022-06-15] MEDS ORDERED: VERAPAMIL SYRINGE (5 MG/10 ML) INTRAARTER ONE (09:16)
[2022-06-15] MEDS ORDERED: HEPARIN SODIUM 1,000 UN/ML (10ML VL) IV ONE (09:16)
[2022-06-15] MEDS ORDERED: IOPAMIDOL-370 125ML BTL INJ ONE (09:28)
[2022-06-15] MEDS ORDERED: RX INFO: IV CONTRAST WAS GIVEN 1 EACH MISC MISCELLANE PRN (09:37)
[2022-06-15] MEDS ORDERED: SODIUM CHLORIDE 0.9% 1,000 ML IV SCH (09:45)
--- NOTE | 2022-06-15 09:49 | P.PCN ---
Date of Procedure: 06/15/22 Operative Findings: CARDIAC CATHETERIZATION PERFORMING PHYSICIAN: Denilson Drake MD, RPVI PROCEDURE PERFORMED: 1. Selective right and left coronary angiogram 2. Left heart catheterization INDICATION: this is a 76-year-old female patient with coronary artery disease and prior stenting of the left anterior descending artery was seen in the office recently for shortness of breath. She underwent myocardial perfusion imaging stress test and that showed an inferior ischemia. For that reason she was brought today to undergo a heart catheterization COMPLICATION: None APPROACH: Right radial artery LEVEL OF SEDATION: Moderate with a sedation length of 15 minutes PROCEDURE DESCRIPTION: After obtaining an informed consent, the patient was brought to cardiac laborer syrup machine. Local anesthesia was performed using lidocaine subcutaneously. The right radial artery was cannulated using Seldinger technique, the guidewire passed easily, following that we advanced a 5-Panamanian sheath dilator assembly, the wire and dilator were removed and sheath was flushed. Following that, 2 mg of verapamil along with 5000 unit heparin were given. Selective right and left coronary angiogram using a 6-Panamanian JR4 and JL 4 catheters. Following that we did left heart catheterization using 6-Panamanian pigtail catheter. The procedure was completed there was no complication. SELECTIVE CORONARY ANGIOGRAM: The right coronary artery: large caliber vessel and a dominant vessel. The RCA is chronically occluded distally and fills by collateral from the left coronary system Left main: is angiographically normal The left circumflex: large-caliber vessel and nondominant vessel. The left circumflex has mild disease proximally. Gives rises into large OM branch which appeared to be angiographically normal. The left anterior descending artery: the proximal LAD is a stented and the stent is patent. The mid LAD has intermediate lesion focal appears to be in the range of 50% by the bifurcation of the diagonal branch. The lesion appeared to be unchanged compared to before HEMODYNAMICS: The LVEDP was 12 mmHg with no gradient across aortic valve CONCLUSION: 1. Chronic total occlusion of the RCA 2. Patent stent in the proximal LAD. Intermediate lesion involving the mid LAD appears to be unchanged compared to before POSTPROCEDURE MANAGEMENT: Maximize medical treatment and follow-up with the patient
[2022-06-15 16:28] VITALS: BP 141/60; PULSE 42
== END 2022-06-15 13:19 | disposition home or self-care (01) ==
LOC: CATHCVL 07:57
PROVIDERS: ATTEND Internal Medicine Interventional Cardiology
DX: I25.10 Atherosclerotic heart disease of native coronary artery without angina pectoris (principal); I35.1 Nonrheumatic aortic (valve) insufficiency; I25.82 Chronic total occlusion of coronary artery; I10 Essential (primary) hypertension; E78.5 Hyperlipidemia, unspecified; G45.9 Transient cerebral ischemic attack, unspecified; I71.9 Aortic aneurysm of unspecified site, without rupture; F17.210 Nicotine dependence, cigarettes, uncomplicated; Z82.49 Family history of ischemic heart disease and other diseases of the circulatory system; Z95.5 Presence of coronary angioplasty implant and graft; Z79.82 Long term (current) use of aspirin; Z79.899 Other long term (current) drug therapy
CPT/HCPCS: 93458; C1769; C1894; J2250; J2001; J1644; Q9967

== ENCOUNTER → 2022-07-22 | Outpatient (CLI) | payer MEDICARE ==
[2022-07-22 16:27] LABS: ALT 19 U/L (8-44); AST 21 U/L (13-35); Albumin 4.4 g/dL (3.8-4.9); Albumin/Globulin Ratio 2.23 (1.60-3.17); Alkaline Phosphatase 132 U/L (41-126); BUN/Creat Ratio 15.88 Ratio (12.00-20.00); Blood Urea Nitrogen 16.2 mg/dL (9.0-27.0); Calcium 10.2 mg/dL (8.7-10.3); Carbon Dioxide 29.5 mmol/L (20.0-27.5); Chloride 102 mmol/L (96-109); Glucose 99 mg/dL (70-110); LDL Cholesterol,Calculated 65.8 mg/dL (0.0-131.0); Non-African American GFR(CKD) 52.6 (60.0-200.0); Potassium 4.5 mmol/L (3.5-5.5); Sodium 143 mmol/L (135-145); Total Protein 6.3 g/dL (6.2-8.2); VLDL Calculation 17.56 mg/dL (5.00-40.00)
== END | disposition home or self-care (01) ==
LOC: LABWHC1 09:50
PROVIDERS: ATTEND Internal Medicine Interventional Cardiology
DX: I10 Essential (primary) hypertension (principal); E21.3 Hyperparathyroidism, unspecified; E78.5 Hyperlipidemia, unspecified
CPT/HCPCS: 36415; 80053; 80061; 82306; 83970; 84443

== ENCOUNTER → 2022-10-15 | Outpatient (CLI) | payer MEDICARE ==
--- NOTE | 2022-10-15 10:51 | MM ---
Reason for Exam: Clinical finding. Last mammogram was performed 5 year(s) and 4 month(s) ago. Indicated Problems: Lump or thickening of the left side for 2 Day(s). Patient History: Menarche at age 7. First Full-Term at age 20. Postmenopausal. Risk Values: Stephania 5 year model risk: 1.7%. NCI Lifetime model risk: 3.0%. Prior Study Comparison: 10/17/2015 Bilateral Screening Mammogram, [facility]. 06/23/2017 Bilateral Screening Mammogram, [facility]. Tissue Density: The breast tissue is heterogeneously dense. This may lower the sensitivity of mammography. Findings: Analyzed By CAD. Pattern appears stable. No discrete mammographic abnormality at the area marked on the left breast the palpable abnormality. No suspicious groups of microcalcifications, spiculated or lobular masses, architectural distortion or other secondary signs of malignancy are mammographically apparent. Overall Assessment: Incomplete: need additional imaging evaluation, BI-RAD 0 Management: Diagnostic Breast Ultrasound of the left breast. A negative mammogram report should not preclude additional follow up of suspicious palpable abnormalities. Patient should continue monthly self breast exam. A clinical breast exam by your physician is recommended on an annual basis and results should be correlated with mammographic findings. Electronically signed and approved by: Fernando Peña D.O. Radiologis
--- NOTE | 2022-10-15 11:10 | USB ---
Reason for Exam: Clinical finding. Patient History: Menarche at age 7. First Full-Term at age 20. Postmenopausal. Risk Values: Stephania 5 year model risk: 1.7%. NCI Lifetime model risk: 3.0%. Technique: Method: Targeted. Prior Study Comparison: 10/17/2015 Bilateral Screening Mammogram, [facility]. 06/23/2017 Bilateral Screening Mammogram, [facility]. Findings: The upper inner quadrant of the left breast, the axilla of the left breast and the retroareolar of the left breast were scanned. There is a hyperechoic somewhat ill-defined subcutaneous area corresponding to the palpable abnormality measuring 1.3 x 0.9 cm may be a acute hematoma. No suspicious solid areas are identified. No suspicious cysts are evident.. Overall Assessment: Probably benign, BI-RAD 3 Management: Diagnostic Breast Ultrasound of the left breast in 3 months. A clinical breast exam by your physician is recommended on an annual basis and results should be correlated with mammographic findings. This exam should not preclude additional follow-up of suspicious palpable abnormalities. Results were given to the patient verbally at the time of exam. Electronically signed and approved by: Fernando Peña D.O. Radiologis
== END | disposition home or self-care (01) ==
LOC: RADMAMWWP 10:14
PROVIDERS: ATTEND Family Medicine
DX: N63.20 Unspecified lump in the left breast, unspecified quadrant (principal); Z78.0 Asymptomatic menopausal state
CPT/HCPCS: 77066; 76642; G0279; 77062

== ENCOUNTER → 2022-10-27 | Outpatient (CLI) | payer MEDICARE ==
--- NOTE | 2022-10-27 16:00 | P.SLEEP ---
History of Present Illness DATE: 10/27/2022 CONSULTATION/NEW PATIENT EVALUATION HISTORY OF PRESENT ILLNESS/SLEEP-WAKE EVALUATION: 76-year-old lady had been evaluated in the sleep center for possible obstructive sleep apnea hypopnea syndrome. SLEEP SCHEDULE: Usually sleep schedule from 10:11 PM until about 6 AM 7 days a week and that patient may stay in bed until around 8 AM. FALLING ASLEEP: Sometimes patient has problems with falling asleep, has TV set and bedroom and is difficult for her to fall asleep without TV on. DURING SLEEP: Patient sleeps by herself subsequently no any information about snoring. Sometimes patient wakes up from sleep and go to bathroom around 2 AMNo history of hypnogogical hallucinations, sleep paralysis, or cataplexy. DURING THE DAY/WAKE STATE: In the morning patient wake up tired, has episodes of depression and anxiety. Sometimes may take some naps. Waldron sleepiness scale is 5, which is in normal range.[]. PAST MEDICAL HISTORY: Hypertension, depression, bipolar, coronary artery disease, TIA. PAST SURGICAL HISTORY: Stent insertion to coronary arteries disease, 3 parathyroid glands removed. MEDICATIONS: Norvasc, omeprazole 20 mg once a day, Plavix 75 mg once a day, Lipitor 40 mg once a day, hydralazine 25 mg twice a day, hydrochlorothiazide 25 mg once a day. SOCIAL HISTORY: Positive history of smoking for about 59 that years quit 2 years ago, alcohol consumption occasional. FAMILY HISTORY: Hypertension, kidney cancer by her aunt. REVIEW OF SYSTEMS: Tiredness and sleepiness during the day. No fevers. No double vision. No recent chest pain. No shortness of breath. No abdominal pain. No bleeding episodes. No blood in urine. No seizure episodes. PHYSICAL EXAMINATION: GENERAL: A pleasant patient without any distress. VITAL SIGNS: BP 150/62 , HR 60 , RR 16 , weight 176.0 pounds, height 5 foot 3-1/4 inches, body mass index 30.9, temperature 97.7, oxygen saturation at room air 96% . HEENT: PERRLA, EOMI. Evaluation of oropharynx showed tongue protrudes midline, low position of soft palate Mallampati 4. NECK: Supple. No JVD. Thyroid is not palpable. 14.5 inches in circumference. LUNGS: Clear to percussion and to auscultation. Good air exchange. No wheezing or rhonchi. HEART: S1, S2 regular. No murmurs, gallops or rubs. ABDOMEN: Soft and nontender. Bowel sounds are present. No organomegaly appreciated. EXTREMITIES: No clubbing or cyanosis. AESTHETICS INSTRUCTOR: Awake, alert, and oriented x3. Cranial nerves 2 to 7 intact. There is no fasciculation or atrophy noted. No focal deficits observed. ASSESSMENT: 1. Low position of soft palate Mallampati 4, episodes of sleepiness during the day. Possible obstructive sleep apnea hypopnea syndrome. 2. History of depression and bipolar disorder. 3. Coronary artery disease, status post stent insertion. 4. History of TIA. 5 hypertension. 6 . Status post 3 parathyroid gland removed. 7. Very mild obesity by body mass index 30.9. PLAN: 1. Polysomnography for evaluation of patient's breathing during sleep. 2. Following plan after reading sleep test 3. Preferable position during sleep on the side. 4. No driving if patient feels any sleepiness. Patient is aware of civil and criminal liability for unsafe driving. 5. Sleep hygiene with regular sleep time for at least 7.5-8 hours. 6. Watching weight. Thank you very much for referring this patient for consultation. Sincerely, Antonio Roa MD, PhD, FAASM. Diplomat of [place] [employer], Sleep Medicine Board by [place] [employer] [place] [employer] [facility] [place] Past Medical History Past Medical History: Coronary Artery Disease (CAD), Chest Pain / Angina, COPD, Hypertension, Syncope, Thyroid Disorder Additional Past Medical History / Comment(s): parathyroid nodules, high calcium Last Myocardial Infarction Date:: 12/2014 History of Any Multi-Drug Resistant Organisms: None Reported Past Surgical History: Heart Catheterization With Stent Additional Past Surgical History / Comment(s): cyst removed from back, heart cath with a stent placed 12/2014. parathyroid removal Past Anesthesia/Blood Transfusion Reactions: No Reported Reaction Date of Last Stent Placement:: 12/03/2014 Additional Psychological History / Comment(s): PT LIVES AT HOME AND HAS AN ADULT GRANDSON WHO LIVES WITH HER. SHE IS INDEPENDENT IN ALL ADL'S Past Alcohol Use History: Occasional, Rare Additional Past Alcohol Use History / Comment(s): SMOKED SINCE AGE 15, 1 PPD, - Past Family History Father Family Medical History: No Reported History Additional Family Medical History / Comment(s): FATHER AT AGE 70. PT UNSURE WHAT EXACTLY HE FROM. arthritis. both legs amputated. Mother Family Medical History: Congestive Heart Failure (CHF) Additional Family Medical History / Comment(s): MOTHER AT AGE 91 YRS. Medications and Allergies Home Medications Medication Instructions Recorded Confirmed Type amLODIPine BESYLATE [Norvasc] 5 mg PO BID 10/14/15 06/15/22 History Omeprazole 20 mg PO DAILY 02/23/17 06/15/22 History Clopidogrel [Plavix] 75 mg PO DAILY #30 tab 02/24/17 06/15/22 Rx Atorvastatin [Lipitor] 40 mg PO HS 07/31/20 06/15/22 History Ergocalciferol [Vitamin D2 (1250 1,250 mcg PO FR 08/17/20 06/15/22 History Mcg = 89892 Iu)] Aspirin EC [Ecotrin Low Dose] 81 mg PO DAILY 01/25/21 06/15/22 History Thiamine [Vitamin B-1] 100 mg PO DAILY 01/25/21 06/15/22 History OLANZapine 5 mg PO HS 06/14/22 06/15/22 History hydrALAZINE HCL [Apresoline] 25 mg PO TID 06/14/22 06/15/22 History hydroCHLOROthiazide [Hydrodiuril] 25 mg PO DAILY 06/14/22 06/15/22 History Allergies Allergy/AdvReac Type Severity Reaction Status Date / Time zolpidem tartrate AdvReac Severe Hallucinati Verified 06/14/22 12:12 [From Marlene] ons Sleep Note - Sleep Note Sleep Note: Temperature: Pulse Rate: Respiratory Rate: Blood Pressure: SpO2: Height: Weight: BMI: Neck Circumference:
== END ==
LOC: 3 N SLEEP 14:45
PROVIDERS: ATTEND Internal Medicine
DX: I10 Essential (primary) hypertension (principal); F31.9 Bipolar disorder, unspecified; I25.10 Atherosclerotic heart disease of native coronary artery without angina pectoris; E66.9 Obesity, unspecified; F17.200 Nicotine dependence, unspecified, uncomplicated; Z68.30 Body mass index [BMI] 30.0-30.9, adult; Z98.61 Coronary angioplasty status; Z86.73 Personal history of transient ischemic attack (TIA), and cerebral infarction without residual deficits; Z79.01 Long term (current) use of anticoagulants; Z79.899 Other long term (current) drug therapy; Z88.8 Allergy status to other drugs, medicaments and biological substances
CPT/HCPCS: 99211

== ENCOUNTER 2023-02-22 19:42 | Outpatient (CLI) | payer MEDICARE ==
--- NOTE | 2023-02-23 19:29 | P.PCN ---
Description of Procedure: POLYSOMNOGRAPHY REPORT PROCEDURE(S)/DATE(S): Polysomnography 02/22/2023 CLINICAL: Patient has been seen in the sleep center for evaluation of obstructive sleep apnea-hypopnea syndrome. Please see my consultation. Sleep study has been done for evaluation of patient breathing during the sleep. PROCEDURE: The standard montage for clinical polysomnography included the electroencephalogram, the electrooculogram, the mentalis surface electromyography and Lead II cardiography. The respiratory battery consisted of measurements of nasal/buccal air flow, pressure transducer measurements from nose, thoracic and/or abdominal effort and intercostal surface electromyography. Video monitoring has been done to check for any parasomnia events. Nocturnal oxyhemoglobin saturations were obtained by finger oximetry. Step-parry titration with positive airway pressure was utilized to control the respiratory events, if necessary. RESULTS: During the diagnostic sleep study sleep efficiency was normal 95.6 %. Latency to sleep onset was normal 13.0 min. Sleep architecture showed stage NI was short 1.1 %, Delta sleep was absent 0 %, REM sleep was normal 20.9 %. Respiratory channel showed 2 obstructive apneas, 0 mixed apneas, 1 central apneas, 8 hypopneas with lowest oxygen level 81 %. Total apnea hypopnea index was 1.6. Oxygen level was below or equal 88% for 13.9 minutes Heart rate was in the range between 57 and 69, average 63. EMG showed 0 periodic limb movements per hour with 0 micro-arousals per hour. IMPRESSIONS: 1. No significant apneas or hypopneas following today's criteria. 2. Oxygen level was below or equal 88% for 13.9 minutes. 3.No significant periodic limb movements have been documented. Please see other impressions from consultation PLAN: 1. I will see patient for follow-up visit to explain results of the test and recommendations. 2. Losing weight program. 3. Sleep hygiene with regular time in bed for at least 7-1/2 hours. 4. No driving if feeling sleepiness. 5. We will start patient on oxygen supplement during sleep . Thank you very much for allowing me to participate in the management of your patient. Sincerely, Antonio Roa MD, PhD, FAASM. Diplomat of [place] [employer], Sleep Medicine Board by [place] [employer] Pediatric Physical Therapist of [facility] [place]
== END 2023-02-23 05:40 | disposition home or self-care (01) ==
LOC: 3 N SLEEP 19:42
PROVIDERS: ATTEND Internal Medicine
DX: G47.33 Obstructive sleep apnea (adult) (pediatric) (principal); F17.200 Nicotine dependence, unspecified, uncomplicated; Z88.8 Allergy status to other drugs, medicaments and biological substances
CPT/HCPCS: 95810

== ENCOUNTER → 2023-03-07 | Outpatient (CLI) | payer MEDICARE | END | disposition home or self-care (01) | LOC: LABPAT 11:09 | PROVIDERS: ATTEND Orthopaedic Surgery | DX: Z01.812 Encounter for preprocedural laboratory examination (principal); Z22.322 Carrier or suspected carrier of Methicillin resistant Staphylococcus aureus; M16.11 Unilateral primary osteoarthritis, right hip | CPT/HCPCS: 86850; 86900; 86901; 87070 ==

== ENCOUNTER → 2023-03-10 | Outpatient (CLI) | payer MEDICARE ==
[2023-03-10 17:40] LABS: INR 0.9 (<1.2); Prothrombin Time 9.9 sec (10.0-12.5)
[2023-03-11 02:15] LABS: ALT 18 U/L (8-44); AST 19 U/L (13-35); Albumin 4.4 g/dL (3.8-4.9); Alkaline Phosphatase 132 U/L (41-126); BUN/Creat Ratio 16.27 Ratio (12.00-20.00); Blood Urea Nitrogen 17.9 mg/dL (9.0-27.0); Calcium 10.4 mg/dL (8.7-10.3); Carbon Dioxide 26.9 mmol/L (21.6-31.8); Chloride 104 mmol/L (96-109); Globulin 2.2 g/dL (1.6-3.3); Glucose 110 mg/dL (70-110); Potassium 4.3 mmol/L (3.5-5.5); Sodium 142 mmol/L (135-145); Total Bilirubin 0.3 mg/dL (0.3-1.2); Total Protein 6.6 g/dL (6.2-8.2)
[2023-03-11 02:42] LABS: Basophils # (A) 0.09 X 10*3/uL (0.00-0.10); Basophils % (A) 0.9 %; Eosinophils # (A) 0.04 X 10*3/uL (0.04-0.35); Eosinophils % (A) 0.4 %; HCT 45.1 % (37.2-46.3); Lymphocytes % (A) 29.2 %; MCH 27.3 pg (27.0-32.0); MCV 87.9 FL (80.0-97.0); Mean Platelet Volume 11.6 FL (9.5-12.2); Monocytes % (A) 5.8 %; NRBC Per 100 WBC 0 X 10*3/uL (0.00-0.01); Neutrophils # (A) 6.51 X 10*3/uL (1.80-7.70); Neutrophils % (A) 63.4 %; Platelet Count 292 X 10*3/uL (140-440); RBC 5.13 X 10*6/uL (4.10-5.20); RDW 14.1 % (11.5-14.5); WBC 10.27 X 10*3/uL (4.50-10.00)
== END | disposition home or self-care (01) ==
LOC: LABPAT 16:13
PROVIDERS: ATTEND Orthopaedic Surgery
DX: Z01.812 Encounter for preprocedural laboratory examination (principal)
CPT/HCPCS: 80053; 85025; 85610; 85730

== ENCOUNTER 2023-03-15 09:16 | Observation (INO) | payer MEDICARE ==
[2023-03-10 13:51] VITALS: BMI 30.1
--- NOTE | 2023-03-14 09:26 | P.HPOR ---
History of Present Illness H&P Date: 03/14/23 Chief Complaint: Left hip pain Patient is a 77-year-old retired female who presents with progressive left hip pain for the past several years worsening over the past several months. She notes groin and thigh pain with weightbearing activities. She's been limping. She is having significant night symptoms. She's tried medications without much relief. Review of Systems As per HPI Past Medical History Past Medical History: Coronary Artery Disease (CAD), COPD, Hyperlipidemia, Hypertension, Myocardial Infarction (IA), Thyroid Disorder Additional Past Medical History / Comment(s): Recent day time fatigue, states "Sleep Apnea ruled out, oxygen levels go down at night, need to start sleeping with oxygen on but haven't received machine yet." Hx parathyroid nodules, high calcium - had parathyroid removed. Last Myocardial Infarction Date:: Unknown History of Any Multi-Drug Resistant Organisms: None Reported Past Surgical History: Heart Catheterization With Stent Additional Past Surgical History / Comment(s): Cyst removed from back, heart cath with a stent placed 12/2014, parathyroid removed. Past Anesthesia/Blood Transfusion Reactions: No Reported Reaction Date of Last Stent Placement:: 12/03/2014 Past Psychological History: Anxiety, Depression Smoking Status: Former smoker Past Alcohol Use History: Occasional Additional Past Alcohol Use History / Comment(s): Started smoking at age 15, 1 PPD, quit 2-3 yrs ago. Past Drug Use History: None Reported - Past Family History Father Family Medical History: No Reported History Additional Family Medical History / Comment(s): FATHER AT AGE 70. PT UNSURE WHAT EXACTLY HE FROM. Had arthritis and both legs amputated. Mother Family Medical History: Congestive Heart Failure (CHF) Additional Family Medical History / Comment(s): MOTHER AT AGE 91 YRS. Son(s) Family Medical History: Cancer Additional Family Medical History / Comment(s): Brain tumor, . Daughter(s) Family Medical History: Deep Vein Thrombosis (DVT) Medications and Allergies Home Medications Medication Instructions Recorded Confirmed Type amLODIPine BESYLATE [Norvasc] 5 mg PO BID 10/14/15 03/10/23 History Omeprazole 20 mg PO QAM 02/23/17 03/10/23 History Clopidogrel [Plavix] 75 mg PO DAILY #30 tab 02/24/17 03/10/23 Rx Atorvastatin [Lipitor] 40 mg PO HS 04/29/21 12/07/23 History Ergocalciferol [Vitamin D2 (1250 1,250 mcg PO FR 08/17/20 03/10/23 History Mcg = 62809 Iu)] Aspirin EC [Ecotrin Low Dose] 81 mg PO DAILY 01/25/21 03/10/23 History Thiamine [Vitamin B-1] 100 mg PO DAILY 01/25/21 03/10/23 History OLANZapine 5 mg PO HS 06/14/22 03/10/23 History hydrALAZINE HCL [Apresoline] 25 mg PO TID 06/14/22 03/10/23 History hydroCHLOROthiazide [Hydrodiuril] 25 mg PO QAM 06/14/22 03/10/23 History clonazePAM [KlonoPIN] 0.5 mg PO QAM 03/10/23 03/10/23 History Allergies Allergy/AdvReac Type Severity Reaction Status Date / Time zolpidem tartrate AdvReac Severe Hallucinati Verified 03/10/23 13:03 [From Marlene] ons Physical Examination - Hip left Gait: antalgic Tenderness with palpation: anterior Pain with motion: internal rotation and hip flexion ROM: flexion: 80 degrees ROM: internal rotation: 0 degrees (Pain) ROM: external rotation: 60 degrees Strength: extension: 5/5 Strength: flexion: 5/5 Strength: abduction: 5/5 Tests: impingement tests: positive Results Patient is a well-developed well-nourished female approximately 5 foot 3, 170 pounds of mesomorphic habitus. HEENT exam is nonfocal, neck is supple. She has painful passive motion of the left hip. Straight leg raise is negative. Clinically she has 1 cm shortening of the left lower extremity compared to the r ight. Her distal neurovascular exam appears intact in the left lower extremity. - Diagnostic results Hip x-ray: image reviewed (2 views of the left hip obtained in the office show severe osteoarthrosis with [id number] changes and subchondral sclerosis.) Assessment and Plan Assessment: Left hip severe osteoarthrosis Coronary artery disease COPD Plan: I talked to the patient at length regarding her condition along with treatment options. At this point she is quite symptomatic and limited having pain related to her left hip osteoarthrosis despite conservative measures. After a thorough discussion she opted to proceed with surgery. We'll plan to proceed with left total hip arthroplasty utilizing an anterior approach. We will likely reinstitute her Plavix postop. Risks and benefits were discussed at length in layman's terms.
[~2023-03-15 09:16] MED LIST changes: +ACETAMINOPHEN TAB 500 MG TAB PO PRN; -ALPRAZolam 0.25 MG TAB PO PRN; -ALPRAZolam 0.5 MG TAB PO PRN; -ASPIRIN 325 MG TAB PO ONE; -ATORVASTATIN 80 MG TAB PO ONE; -HEPARIN SODIUM,PORCINE 10,000 UNIT in SODIUM CHLORIDE 0.9% 1,000 ML IRRIGATION PRN; -HEPARIN SODIUM,PORCINE 2,500 UNIT in SODIUM CHLORIDE 0.9% 250 ML IRRIGATION PRN; +LIDOCAINE 1% (10MG/ML) FOR IV START INTRADERMA PRN; +MELOXICAM 7.5 MG TAB PO PRN; -NITROGLYCERIN SL TABS 0.4 MG TAB SUBLINGUAL PRN; -SODIUM CHLORIDE 0.9% 1,000 ML in EMPTY BAG 1 BAG IV SCH; +TRANEXAMIC 1,000 MG/100ML-NACL 1,000 MG in SALINE 1 100ML.BAG IVPB PRN
[2023-03-15] MEDS: LACTATED RINGERS 1,000 ML IV SCH ×2 (09:49→11:33)
[2023-03-15] MEDS: DEXAMETHASONE SOD PHOSPHATE 4 MG/ML 1 ML VIAL IV ONE ×2 (10:00→18:38)
[2023-03-15] MEDS ORDERED: MIDAZOLAM 2 MG/2 ML VIAL IVP ONE ×2 (10:50)
--- NOTE | 2023-03-15 11:05 | P.ANPRN ---
Procedure Note - Anesthesia - Nerve Block Performed Left Lobo Single Time Out Performed: Yes Date of Procedure: 03/15/23 Procedure Start Time: 10:49 Procedure Stop Time: 10:53 Indication: Acute Post-Operative Pain, Dx/Pain Location, Requested by Surgeon Sedation Type: Sedate with meaningful contact maintained Preparation: Sterile Prep Position: Supine Catheter: None Needle Types: Pajunk Needle Gauge: 21 Ultrasound used to visualize needle placement: Yes Ultrasound used to observe medication spread: Yes Injectate: 0.5% Ropivacaine (see comment for volume) (20cc) Blood Aspirated: No Pain Paresthesia on Injection Noted: No Resistance on Injection: Normal Image Stored and Saved: Yes Events: Uneventful and Well Tolerated
[2023-03-15] MEDS ORDERED: PROPOFOL 10 MG/ML 20 ML VIAL IV ONE (11:29)
[2023-03-15] MEDS ORDERED: TRANEXAMIC 1,000 MG/100ML-NACL PREMIX BAG ONE (11:29)
[2023-03-15] MEDS ORDERED: fentaNYL (PF) 50 MCG/ML 2 ML AMP ONE (11:29)
[2023-03-15] MEDS ORDERED: ROPIVACAINE 5 MG/ML 30 ML VIAL ONE (11:29)
[2023-03-15] MEDS ORDERED: MIDAZOLAM 2 MG/2 ML VIAL ONE (11:29)
[2023-03-15] MEDS ORDERED: ceFAZolin 1,000 MG in SODIUM CHLORIDE 0.9% 1,000 ML IRRIGATION ONE (12:05)
[2023-03-15] MEDS ORDERED: LACTATED RINGERS 1,000 ML IV ONE (12:32)
[2023-03-15] MEDS ORDERED: HYDROcodone/APAP 5-325MG 1 EACH TAB PO PRN (13:34)
[2023-03-15] MEDS ORDERED: NALOXONE 0.4 MG/ML 1 ML VIAL IV PRN (13:34)
[2023-03-15] MEDS ORDERED: HYDROmorphone 0.5 MG/0.5 ML SYRINGE IVP PRN ×2 (13:34)
[2023-03-15] MEDS ORDERED: MAGNESIUM HYDROXIDE 2,400 MG/30 ML CUP PO PRN (13:34)
--- NOTE | 2023-03-15 13:55 | P.OP ---
Date of Procedure: 03/15/23 Preoperative Diagnosis: Left hip severe osteoarthrosis Postoperative Diagnosis: Same Procedure(s) Performed: Left total hip arthroplastyanterior approachpress-fit Implants: Depuy Corail size 12/135 collared press-fit femoral stem, 36+1.5 ceramic femoral head, 54 mm Wenden acetabular shell with neutral polyethylene liner Anesthesia: ISSSY Surgeon: Mik Saul Front Office Director #1: Rakesh Martin Estimated Blood Loss (ml): 200 Pathology: none sent Condition: stable Disposition: PACU Indications for Procedure: The patient is 77-year-old female who presents with persistent/progressive left hip pain secondary to osteoarthrosis despite conservative measures. A discussion of the risks and benefits of operative intervention versus continued conservative measures was made with the patient. She opted to proceed. Operative risks to include infection, neurovascular injury, fracture, development of blood clots, possible leg length discrepancy, possible component loosening/failure and need for subsequent procedures was discussed. Informed consent was obtained. Operative Findings: As below Description of Procedure: The patient was brought to the operating room, and after induction of spinal anesthesia was placed supine on the Alexus table. Positioning was checked with fluoroscopy. The left hip was then prepped and draped in a normal fashion. A 12 cm incision was then made starting 2 fingerbreadths distal and 3 finger breaths posterior to the ASIS in line with the proximal femur. The skin was incised sharply. Subcutaneous tissues were divided sharply. Electrocautery was used for hemostasis. The fascia was split in line with skin incision. The interval between the sartorius and tensor fascia luke was then bluntly developed. The posterior fascia was opened with electrocautery. The lateral circumflex vessels were identified and cauterized prior to sectioning. A retractor was placed along the superior femoral neck as well as the anterior acetabular rim. A wide capsulotomy was performed. The neck cut was then made at a 45 angle to the shaft approximately 1 1/2 cm above the level of the lesser trochanter. The head was extracted. Attention was then paid towards preparing the acetabular. Anterior and posterior retractors were placed. The remaining capsular labral tissue sharply debrided clearly defining the acetabular margins. I began reaming with a 47 mm reamer taking care to initially medialize then reaming at 45 of abduction and 20 of anteversion. Sequential reaming is performed up to 53 mm. A trial 54 mm acetabular shell was inserted in the same orientation and was fully seated. There was good rim fit and stability. Positioning was checked with fluoroscopy. The final 54 mm acetabular shell was inserted again at 45 of abduction and 20 of anteversion. This was fully seated. There was good rim fit and stability. Again fluoroscopy was used to check the adequacy of placement. A neutral polyethylene liner was gently impacted. Care was taken to avoid any soft tissue interposition. Pulsatile lavage was utilized. Attention was then paid towards preparing the proximal femur. The central region was cleared of soft tissue. A canal finder was used to find the femoral canal. Sequential broaching was performed up to size 12 taking care to lateralize proximally. A calcar mill was used to fashion the medial calcar. There was good rotational stability. A standard neck along with a 36+1.5 mm head was placed. The hip was gently reduced. Fluoroscopy was used to check the adequacy of positioning along with leg lengths. I felt both were good. The hip was gently dislocated. The trial components were removed. The final size 12 collared standard press-fit femoral stem was inserted parallel to the posterior cortex. This was fully seated and there was good rotational stability. A 36 mm + 1.5 ceramic head was placed. This was gently impacted. The hip was then gently reduced. Final fluoroscopic view showed adequate placement implant along with episcopalian of leg length. Stability was checked with 80 of external rotation and 60 of extension of the right hip. The wound was irrigated with sterile lavage. The fascia was closed with running 0 Vicryl suture. There was minimal drainage therefore a deep drain was not placed. The second dose of IV TXA was given. The subcutaneous tissues were reapproximated interrupted 2-0 Vicryl sutures. The skin was reapproximated with 3-0 subcuticular strata fix suture. Skin tape and adhesive was applied. A sterile dressing was applied. The patient was then awoken from sedation and transferred to recovery room in good condition. Blood loss was estimated at 200 mL. No complications were incurred. Sponge and needle counts were correct at the end of the case. Rakesh PANIAGUA assisted during the major components is case to include exposure, bone resection, implantation, and closure.
[2023-03-15] MEDS: HYDROmorphone 0.5 MG/0.5 ML SYRINGE IVP PRN ×3 (14:05→15:51)
--- NOTE | 2023-03-15 14:59 | XR ---
EXAMINATION TYPE: XR Hip Limited LT DATE OF EXAM: 03/15/2023 Comparison: None Clinical History: 77-year-old female Status post hip surgery, assess surgical alignment Findings: Overpenetrated exam. The single image shows placement of left total hip arthroplasty. Both are at the cerebellar cup and femoral stem components are well seated without periprosthetic fracture. Alignmen t grossly anatomic. Soft tissue air related to recent operation. Impression: Uncomplicated postoperative appearance left total hip arthroplasty.
--- NOTE | 2023-03-15 15:01 | XR ---
EXAMINATION TYPE: XR Hip Limited LT, FL guidance operating room DATE OF EXAM: 03/15/2023 Comparison: None Clinical History: 77-year-old female LEFT ANTERIOR HIP Findings: LT anterior hip with Kg. 19 sec fluoro time. 0.9525 mGycm2 DAP. 6 images are widened. Impression: Intraoperative fluoroscopy as above.
[2023-03-15] MEDS: hydrOXYzine pamoate 25 MG CAP PO PRN (20:20)
[2023-03-15] MEDS: SENNOSIDES-DOCUSATE SODIUM 1 EACH TAB PO SCH (20:20)
[2023-03-15] MEDS: HYDROcodone/APAP 7.5-325MG 1 EACH TAB PO PRN (21:38)
[2023-03-16] MEDS: hydrOXYzine pamoate 25 MG CAP PO PRN ×3 (01:44→21:11)
[2023-03-16] MEDS: HYDROcodone/APAP 7.5-325MG 1 EACH TAB PO PRN ×2 (03:16→08:39)
[2023-03-16] MEDS: LACTATED RINGERS 1,000 ML IV SCH (05:37)
[2023-03-16] MEDS: CLOPIDOGREL 75 MG TAB PO SCH (08:39)
--- NOTE | 2023-03-16 10:40 | P.PN ---
Subjective Progress Note Date: 03/16/23 Principal diagnosis: Left hip osteoarthritis Patient was seen at bedside this morning sitting up in chair with legs elevated. Dressing of present over left hip. Patient says she did work with therapy this morning and walked around the room and into the hallway. Patient notes after she took the first step onto the stairs she felt like her knee was about buccal and palatal bit unsteady. Patient says her pain is tolerable while she is sitting in chair. Patient says she does get increased pain when she gets up and walks around the room. Patient says she does have a walker for home. Patient says she has urinated several times since surgery yesterday. Patient is hoping to stay one more in hospital. PT recommending patient to stay one more in hospital as well. Patient denies chest pain, fever, shortness breath, nausea, vomiting, change in vision, loss of bowel/bladder control. Objective - Vital Signs Vital signs: Vital Signs Temp 97.6 F 03/16/23 07:21 Pulse 72 03/16/23 07:21 Resp 18 03/16/23 07:21 BP 129/67 03/16/23 07:21 Pulse Ox 90 L 03/16/23 07:21 FiO2 Intake & Output 03/15/23 03/16/23 03/16/23 18:59 06:59 18:59 Intake Total 1951 590 Output Total 200 Balance 1751 590 Weight 78.9 kg Intake: IV 1950 Intake, IV Titration 240 Amount Lactated Ringers 1,000 ml 240 @ 20 mls/hr IV .Q24H JOSETTE Rx#:[id number] Oral 350 Output: Estimated Blood Loss 200 Other: # Voids 2 - Exam Left hip: Incision is clean, dry, and intact. The exofin fusion tape is in good condition. There is minimal soft tissue swelling and ecchymosis surrounding the medial and lateral aspects of the incision. Calf is soft, no tenderness with palpation. Plantar flexion, dorsiflexion, EHL, FHL are intact. Sensory exam to light touch throughout the extremity is intact, dorsal pedis pulses 2+. Assessment and Plan Assessment: 1. Left hip osteoarthritis - Postop day #1 status post left total hip arthroplasty Plan: 1. Left hip osteoarthritis - left total hip arthroplasty performed yesterday, 03/15/2023. Patient stable at bedside this morning. Plan to keep patient 1 more night for additional PT and pain control. Patient does have a walker at home. Plan for discharge home tomorrow with health services. 2. Appreciate medical management 3. Pain management - [place] 4. GI prophylaxis - senna 5. DVT prophylaxis - Plavix 6. PT/OT - weightbearing as tolerated with walker 7. Encourage incentive spirometer use 8. Discharge planning - Plan for discharge home tomorrow with health services pending improvement on the stairs of PT/OT. Time with Patient: Less than 30
[2023-03-16 10:59] LABS: Basophils # (A) 0.01 X 10*3/uL (0.00-0.10); Basophils % (A) 0.1 %; Eosinophils # (A) 0 X 10*3/uL (0.04-0.35); Eosinophils % (A) 0 %; HCT 29.1 % (37.2-46.3); HGB 9.3 g/dL (12.0-15.0); Lymphocytes # (A) 1.75 X 10*3/uL (0.90-5.00); Lymphocytes % (A) 14.9 %; MCH 27.8 pg (27.0-32.0); MCV 86.9 FL (80.0-97.0); Monocytes # (A) 0.82 X 10*3/uL (0.20-1.00); NRBC Per 100 WBC 0 X 10*3/uL (0.00-0.01); Neutrophils # (A) 9.08 X 10*3/uL (1.80-7.70); Neutrophils % (A) 77.6 %; Platelet Count 263 X 10*3/uL (140-440); RBC 3.35 X 10*6/uL (4.10-5.20); RDW 13.7 % (11.5-14.5); WBC 11.71 X 10*3/uL (4.50-10.00)
--- NOTE | 2023-03-16 15:20 | P.CONS ---
History of Present Illness - Reason for Consult Consult date: 03/16/23 Medical management, status post left hip arthroplasty - History of Present Illness This is a 77-year-old female who was recently admitted under orthopedic services status post left hip total arthroplasty and is postop day 1. Patient follows with Dr. Blanton in the outpatient setting with past medical history of mckeon ry artery disease, COPD, hyperlipidemia, hypertension, myocardial infarctions, thyroid disorder, recent sleep apnea ruled out although patient has been having low oxygen levels at night and awaiting to receive home oxygen, anxiety with depression and a former smoker. Patient did require 2 L of oxygen although is currently on room air at 93% and denies any significant shortness of breath. Patient has been given incentive spirometer and instructed to continue using at least 10 times every hour while awake. Patient did have postoperative labs drawn which showed a WBC of 11.71 which is likely reactive with a hemoglobin is stable at 9.3. Patient reports she did undergo presurgical clearance and everything was fine. Patient is afebrile with no reports of chest pain or palpitations. Patient reports voiding with no difficulties and has been passing gas. Patient tolerating diet and only experienced one episode of nausea postoperatively. Patient was evaluated by physical therapy and did not do well on the stairs and reports has 6 stairs to get up into her home and plans on going home. Patient will be reevaluated by physical therapy in the morning and continue with pain management per orthopedics. Medicine was consulted regarding medication management. She takes a number of blood pressure medications including hydrochlorothiazide, hydralazine and Norvasc and will hold to monitor for postoperative hypotension. Blood pressures are currently normotensive. Review Of Systems: Constitutional: No fever, no chills, no night sweats. No weight change. No weakness, fatigue or lethargy. No daytime sleepiness. EENT: No headache. No blurred vision or double vision, no loss of vision. No loss of Hearing, no ringing in the ears, no dizziness. No nasal drainage or congestion. No epistaxis. No sore throat. Lungs: No shortness of breath, cough, no sputum production. No wheezing. Cardiovascular: No chest pain, no lower extremity edema. No palpitations. No paroxysmal nocturnal dyspnea. No orthopnea. No lightheadedness or dizziness. No syncopal episodes. Abdominal: No abdominal pain. No nausea, vomiting. No diarrhea. No constipation. No bloody or tarry stools.. No loss of appetite. Genitourinary: No dysuria, increased frequency, urgency. No urinary retention. Musculoskeletal: No myalgias. No muscle weakness, no gait dysfunction, no frequent falls. No back pain. No neck pain. Reports left hip pain and discomfort Integumentary: No wounds, no lesions. No rash or pruritus. No unusual bruising. No change in hair or nails. Neurologic: No aphasia. No facial droop. No change in mentation. No head injury. No headache. No paralysis. No paresthesia. Psychiatric: No depression. No anxiety. No mood swings. Endocrine: No abnormal blood sugars. No weight change. No excessive sweating or thirst. No cold intolerance. PHYSICAL EXAMINATION: GENERAL: The patient is alert and oriented x4, Well developed, well nourished. Obese HEENT: Pupils are round and equally reacting to light. EOMI. no scleral icterus. No conjunctival pallor. Normocephalic, atraumatic. No pharyngeal erythema. No thyromegaly. CARDIOVASCULAR: S1 and S2 muffled PULMONARY: diminished breath sounds bilaterally otherwise clear to auscultation with no wheezing or rhonchi noted. ABDOMEN: soft. Nontender on exam. obese. non-distended, normoactive bowel sounds. No palpable organomegaly. MUSCULOSKELETAL: No joint swelling or deformity. EXTREMITIES: No cyanosis, clubbing, or pedal edema. Left hip surgical incision site is clean dry and intact with no significant erythema noted. Minimal swelling noted and soft and palpable NEUROLOGICAL: Gross neurological examination did not reveal any focal deficits. Diffuse weakness SKIN: No rashes. Assessment: Status post left total hip arthroplasty COPD, not in exacerbation Leukocytosis, mild, likely reactive given patient's recent surgery Hyperlipidemia Hypertension Previous myocardial infarction with stenting History of anxiety and depression History of coronary artery disease Former smoker Obesity with a BMI of 30.8 GI prophylaxis DVT prophylaxis Full code Plan: Recommend to continue with current medications and management per orthopedic services. Pain management and DVT prophylaxis per orthopedics Home medications reviewed and resumed and recommend holding blood pressure medications to monitor for postoperative hypotension read patient is currently normotensive patient reports she has history of COPD and was scheduled to receive outpatient O2 at 2-3 L at night as patient has been having low pulse ox readings and underwent sleep study reporting she does not have sleep apnea. Awaiting heart medical to improve her oxygen Incentive spirometer ordered encourage the patient continue using at least 10 times every hour while awake Encourage the patient to get up out of the bed more often and setup in the chair with all meals PT/OT evaluated the patient recommending monitoring and reevaluation as patient was unable to tolerate the stairs and has 6 stairs to get up and in her house and plans on going home with family. We will continue to follow with orthopedics during hospitalization. Thank you bill abarca for this consultation The impression and plan of care has been dictated by Olivia London, nurse practitioner as directed. Dr. Betty MD I have performed a history and examination and MDM of this patient, discussed the same with the dictator, and agree with the dictator's assessment and plan as written ,documented as a scribe. Based on total visit time, I have performed more than 50% of the visit. Any additional findings or plans will be noted. Past Medical History Past Medical History: Coronary Artery Disease (CAD), COPD, Hyperlipidemia, Hypertension, Myocardial Infarction (MD), Thyroid Disorder Additional Past Medical History / Comment(s): Recent day time fatigue, states "Sleep Apnea ruled out, oxygen levels go down at night, need to start sleeping with oxygen on but haven't received machine yet." Hx parathyroid nodules, high calcium - had parathyroid removed. Last Myocardial Infarction Date:: Unknown History of Any Multi-Drug Resistant Organisms: None Reported Past Surgical History: Heart Catheterization With Stent Additional Past Surgical History / Comment(s): Cyst removed from back, heart cath with a stent placed 12/2014, parathyroid removed. Past Anesthesia/Blood Transfusion Reactions: No Reported Reaction Date of Last Stent Placement:: 12/03/2014 Past Psychological History: Anxiety, Depression Additional Psychological History / Comment(s): PT LIVES AT HOME AND HAS AN ADULT GRANDSON WHO LIVES WITH HER. SHE IS INDEPENDENT IN ALL ADL'S Smoking Status: Former smoker Past Alcohol Use History: Occasional Additional Past Alcohol Use History / Comment(s): Started smoking at age 15, 1 PPD, quit 2-3 yrs ago. Past Drug Use History: None Reported - Past Family History Father Family Medical History: No Reported History Additional Family Medical History / Comment(s): FATHER AT AGE 70. PT UNSURE WHAT EXACTLY HE FROM. Had arthritis and both legs amputated. Mother Family Medical History: Congestive Heart Failure (CHF) Additional Family Medical History / Comment(s): MOTHER AT AGE 91 YRS. Son(s) Family Medical History: Cancer Additional Family Medical History / Comment(s): Brain tumor, . Daughter(s) Family Medical History: Deep Vein Thrombosis (DVT) Medications and Allergies Home Medications Medication Instructions Recorded Confirmed Type amLODIPine BESYLATE [Norvasc] 5 mg PO BID 10/14/15 03/15/23 History Omeprazole 20 mg PO QAM 02/23/17 03/15/23 History Clopidogrel [Plavix] 75 mg PO DAILY #30 tab 02/24/17 03/10/23 Rx Atorvastatin [Lipitor] 40 mg PO HS 07/31/20 03/15/23 History Ergocalciferol [Vitamin D2 (1250 1,250 mcg PO FR 08/17/20 03/15/23 History Mcg = 31350 Iu)] Aspirin EC [Ecotrin Low Dose] 81 mg PO DAILY 01/25/21 03/10/23 History Thiamine [Vitamin B-1] 100 mg PO DAILY 01/25/21 03/15/23 History OLANZapine 5 mg PO HS 06/14/22 03/15/23 History hydrALAZINE HCL [Apresoline] 25 mg PO TID 06/14/22 03/15/23 History hydroCHLOROthiazide [Hydrodiuril] 25 mg PO QAM 06/14/22 03/15/23 History clonazePAM [KlonoPIN] 0.5 mg PO QAM 03/10/23 03/15/23 History Allergies Allergy/AdvReac Type Severity Reaction Status Date / Time zolpidem tartrate AdvReac Severe Hallucinati Verified 03/15/23 09:37 [From Reeien] ons Physical Exam Vitals: Vital Signs Temp Pulse Resp BP Pulse Ox 03/16/23 07:21 97.6 F 72 18 129/67 90 L 03/16/23 01:16 97.5 F L 67 17 126/62 92 L 03/15/23 20:32 97.4 F L 74 18 121/70 96 03/15/23 20:14 96 03/15/23 16:30 56 L 12 118/56 93 L 03/15/23 16:00 55 L 12 125/60 95 03/15/23 15:30 87 12 122/59 97 12/12/23 15:00 57 L 12 128/56 97 03/15/23 14:45 56 L 12 123/59 100 03/15/23 14:30 62 12 114/53 100 03/15/23 14:15 64 16 119/63 100 03/15/23 14:00 77 16 115/58 100 03/15/23 13:47 97.8 F 92 16 115/66 98 03/15/23 09:49 97.8 F 66 16 169/72 95 Intake and Output 03/15/23 03/16/23 03/16/23 22:59 06:59 14:59 Intake Total 590 Balance 590 Intake: Intake, IV Titration 240 Amount Lactated Ringers 1,000 ml 240 @ 20 mls/hr IV .Q24H [facility] Rx#:[id number] Oral 350 Other: # Voids 1 2 Weight 78.9 kg Results CBC & Chem 7: 03/16/23 06:36
[2023-03-16] MEDS: SENNOSIDES-DOCUSATE SODIUM 1 EACH TAB PO SCH (20:26)
[2023-03-16] MEDS ORDERED: OLANZapine 5 MG TAB PO SCH (21:00)
[2023-03-16] MEDS ORDERED: ATORVASTATIN 40 MG TAB PO SCH (21:00)
[2023-03-17 02:45] VITALS: RESP 17
[2023-03-17] MEDS: LACTATED RINGERS 1,000 ML IV SCH (06:09)
[2023-03-17] MEDS ORDERED: PANTOPRAZOLE 40 MG TABLET PO SCH (07:30)
[2023-03-17 07:55] VITALS: BP 145/66; PULSE 77; TEMP 98.6
[2023-03-17] MEDS: HYDROcodone/APAP 7.5-325MG 1 EACH TAB PO PRN ×2 (08:31→13:23)
[2023-03-17] MEDS: CLOPIDOGREL 75 MG TAB PO SCH (08:31)
[2023-03-17] MEDS ORDERED: ASPIRIN 81 MG PO SCH (09:00)
--- NOTE | 2023-03-17 10:02 | P.PN ---
Subjective Progress Note Date: 03/17/23 Principal diagnosis: Status post direct anterior left hip arthroplasty evaluated today at bedside, she is resting in her hospital chair. She states the pain is a little bit better yesterday. She is hoping to work with physical therapy today. Plan is for discharge to home later today Objective - Vital Signs Vital signs: Vital Signs Temp 98.6 F 03/17/23 07:44 Pulse 77 03/17/23 08:32 Resp 17 03/17/23 08:32 BP 145/66 03/17/23 07:44 Pulse Ox 94 L 03/17/23 07:44 FiO2 Intake & Output 03/16/23 03/17/23 03/17/23 18:59 06:59 18:59 Intake Total 650 Balance 650 Intake: Oral 650 Other: Voiding Method Toilet Toilet # Voids 5 2 # Bowel Movements 1 - Exam Left lower extremity: Incision is clean, dry, and intact. The exofin fusion tape is in good condition. There is minimal soft tissue swelling and ecchymosis surrounding the medial and lateral aspects of the incision. Calf is soft, no tenderness with palpation. Plantar flexion, dorsiflexion, EHL, FHL are intact. Sensory exam to light touch throughout the extremity is intact, dorsal pedis pulses 2+. - Labs CBC & Chem 7: 03/16/23 06:36 Labs: Abnormal Lab Results - Last 24 Hours (Table) 03/16/23 Range/Units 06:36 WBC 11.71 H (4.50-10.00) X 10*3/uL RBC 3.35 L (4.10-5.20) X 10*6/uL Hgb 9.3 L (12.0-15.0) g/dL Hct 29.1 L (37.2-46.3) % Immature Gran # 0.05 H (0.00-0.04) X 10*3/uL Neutrophils # 9.08 H (1.80-7.70) X 10*3/uL Eosinophils # 0 L (0.04-0.35) X 10*3/uL Assessment and Plan Assessment: Postoperative day #1 status post direct anterior left total hip arthroplasty Plan: Pain control, continue with [place] 7.5 mg/325 mg DVT prophylaxis, continue aspirin and Plavix Wound care instructions discussed Continue work with physical therapy Medical recommendations Discharge planning: Plan for discharge home today with home health care Time with Patient: Less than 30
--- NOTE | 2023-03-17 12:40 | P.DS ---
Providers Date of admission: 03/15/2023 Expected date of discharge: 03/16/23 Attending physician: Mik Saul Consults: 03/15/23 13:34 Consult Physician Routine Consulting Provider: Len Self Consult Reason/Comments: medical management s/p left total hip arthroplasty (anterior) Do you want consulting provider notified?: Yes Primary care physician: Miladis Blanton Hospital Course: Date of admission: 03/15/2023 Date of discharge: 03/17/2023 Admission diagnosis: Left hip osteoarthritis Discharge diagnosis: Same Attending physician: Dr. Saul Surgical procedures: Left total hip arthroplasty Brief history: Patient is a 77-year-old female with a history of progressive primary left hip posterior arthritis. At this point patient has failed conservative treatment measures and has opted to proceed with a elective left total hip arthroplasty. Hospital course: Details of patient's surgery can be found in operative report. Patient tolerated the procedure well and was subsequently transported to orthopedic floor. Patient's orthopeidc and medical care was provided daily. Patient had daily laboratory tests performed for evaluation of overall blood counts. Patient had daily physical therapy to include strengthening range of motion as well as education with walker ambulation. Patient was treated with Plavix for their postoperative DVT prophylaxis during their inpatient stay. Patient was noted to have a relatively uneventful postoperative course. Patient reported satisfactory pain control with oral pain medications by postoperative day 2. Patient showed satisfactory progress with physical therapy. Patient moved steadily through the program and had no difficulty meeting the goals by postoperative day 2. Given patient's otherwise satisfactory course and having met physical therapy goals, plan is to discharge patient home with health services on postoperative day 2. Discharge condition/disposition: Patient will be discharged home with health services in stable condition. Discharge medications: Instructions are given on resumption of patient's normal daily medications per primary care recommendation, in addition patient will be prescribed [place]; senna. Resume Plavix at home for DVT prophylaxis Discharge instructions: 1. Wound care and infection precautions, keep incision dry and covered while showering, no lotions, creams, moisturizers. No soaking, tubs, pools, hottubs. Do not scrub over the incision. 2. Weight-bear as tolerated with walker / cane until follow-up. 3. Ice and elevate when necessary. Do not exceed 20 minutes per hour with ice pack. 4. Utilize compression sleeve until seen at first follow up appointment. 5. Visiting nursing care. 6. Home physical therapy. 7. Pain meds and anticoagulants per prescription. 8. Pain medication has potential to cause constipation. Increase oral fluid and fiber intake. Contact primary care provider if you have not had a bowel movement within 48 hours after discharge 9. No anti-inflammatory medication until discussed at first post operative visit, this including Motrin, Aleve, Mobic, Diclofenac. 10. Follow up in office at 2 weeks postop with René Yu PA-C / Rakesh Martin PA-C 11. Follow up with your primary care doctor 7-10 days after discharge. 12. Contact [facility] with any questions, . Assessment: Left hip osteoarthritis Procedures: Left total hip arthroplasty Patient Condition at Discharge: Good Plan - Discharge Summary Discharge Rx Participant: No New Discharge Prescriptions: New HYDROcodone/APAP 7.5-325MG [[place] 7.5-325] 1 - 2 tab PO Q6HR PRN #32 tab PRN Reason: Pain Sennosides/Docusate Sodium [Senna Plus 8.6-50 mg Softgel] 1 each PO DAILY #20 capsule No Action amLODIPine BESYLATE [Norvasc] 5 mg PO BID Omeprazole 20 mg PO QAM Clopidogrel [Plavix] 75 mg PO DAILY #30 tab Thiamine [Vitamin B-1] 100 mg PO DAILY Aspirin EC [Ecotrin Low Dose] 81 mg PO DAILY hydroCHLOROthiazide [Hydrodiuril] 25 mg PO QAM Atorvastatin [Lipitor] 40 mg PO HS Ergocalciferol [Vitamin D2 (1250 Mcg = 45911 Iu)] 1,250 mcg PO FR hydrALAZINE HCL [Apresoline] 25 mg PO TID OLANZapine 5 mg PO HS clonazePAM [KlonoPIN] 0.5 mg PO QAM Discharge Medication List amLODIPine BESYLATE [Norvasc] 5 mg PO BID 10/14/15 [History] Omeprazole 20 mg PO QAM 02/23/17 [History] Clopidogrel [Plavix] 75 mg PO DAILY #30 tab 02/24/17 [Rx] Atorvastatin [Lipitor] 40 mg PO HS 07/31/20 [History] Ergocalciferol [Vitamin D2 (1250 Mcg = 37090 Iu)] 1,250 mcg PO FR 08/17/20 [History] Aspirin EC [Ecotrin Low Dose] 81 mg PO DAILY 10/24/21 [History] Thiamine [Vitamin B-1] 100 mg PO DAILY 01/25/21 [History] OLANZapine 5 mg PO HS 06/14/22 [History] hydrALAZINE HCL [Apresoline] 25 mg PO TID 06/14/22 [History] hydroCHLOROthiazide [Hydrodiuril] 25 mg PO QAM 06/14/22 [History] clonazePAM [KlonoPIN] 0.5 mg PO QAM 03/10/23 [History] HYDROcodone/APAP 7.5-325MG [[place] 7.5-325] 1 - 2 tab PO Q6HR PRN #32 tab 03/17/23 [Rx] Sennosides/Docusate Sodium [Senna Plus 8.6-50 mg Softgel] 1 each PO DAILY #20 capsule 03/17/23 [Rx] Follow up Appointment(s)/Referral(s): [facility], [NON-STAFF] - 1-2 Days ([facility] will call you to schedule your in home nursing and physical therapy visits. ) Rakesh Martin, CULLEN [PHYSICIAN SYSTEMS SOFTWARE SPECIALIST] - 03/31/23 8:50 am Patient Instructions/Handouts: Anterior Hip Replacement (DC), Anterior Hip Replacement (GEN) Activity/Diet/Wound Care/Special Instructions: Orthopedic Discharge Instructions: 1. Wound care and infection precautions, keep incision dry and covered while showering, no lotions, creams, moisturizers. No soaking, pools, hot tubs. Do not scrub over incision. 2. Weight-bear as tolerated with walker / cane until follow-up. 3. Ice and elevate when necessary. Do not exceed 20 minutes per hour with ice pack. 4. Utilize compression sleeve until seen at first follow up appointment. 5. Pain meds and anticoagulants per prescription. 6. Pain medication has potential to cause constipation. Increase oral fluid and fiber intake. Contact primary care provider if you have not had a bowel movement within 48 hours after discharge. 7. No anti-inflammatory medication until discussed at first post operative visit, this including Motrin, Aleve, Mobic, Diclofenac. 8. Follow up in office at 2 weeks postop with René Yu PA-C / Rakesh Martin PA-C 9. Follow up with your primary care doctor 7-10 days after discharge. 10. Contact [facility] with any questions, . Keep incision clean, dry, intact. While showering, cover fusion tape with Saran wrap. Keep fusion tape on until follow-up appointment in office in 2 weeks Discharge Disposition: HOME WITH HOME HEALTH SERVICES
--- NOTE | 2023-03-19 10:47 | P.PN ---
Subjective Progress Note Date: 03/17/23 - Reason for Consult Consult date: 03/16/23 Medical management, status post left hip arthroplasty - History of Present Illness This is a 77-year-old female who was recently admitted under orthopedic services status post left hip total arthroplasty and is postop day 1. Patient follows with Dr. Blanton in the outpatient setting with past medical history of coronary artery disease, COPD, hyperlipidemia, hypertension, myocardial infarc tions, thyroid disorder, recent sleep apnea ruled out although patient has been having low oxygen levels at night and awaiting to receive home oxygen, anxiety with depression and a former smoker. Patient did require 2 L of oxygen although is currently on room air at 93% and denies any significant shortness of breath. Patient has been given incentive spirometer and instructed to continue using at least 10 times every hour while awake. Patient did have postoperative labs drawn which showed a WBC of 11.71 which is likely reactive with a hemoglobin is stable at 9.3. Patient reports she did undergo presurgical clearance and everything was fine. Patient is afebrile with no reports of chest pain or palpitations. Patient reports voiding with no difficulties and has been passing gas. Patient tolerating diet and only experienced one episode of nausea postoperatively. Patient was evaluated by physical therapy and did not do well on the stairs and reports has 6 stairs to get up into her home and plans on going home. Patient will be reevaluated by physical therapy in the morning and continue with pain management per orthopedics. Medicine was consulted regarding medication management. She takes a number of blood pressure medications including hydrochlorothiazide, hydralazine and Norvasc and will hold to monitor for postoperative hypotension. Blood pressures are currently normotensive. 03/17/2023 Patient is seen in follow-up today with no acute overnight issues noted. Blood pressures being controlled and patient instructed to follow-up and monitor blood pressures and resume home medication dosing. Patient plans on going home today reports improved with physical therapy and has been cleared by orthopedics for discharge. Patient is medically stable and instructed to follow-up with primary care provider as well. Patient is currently afebrile with no reported chest pain or shortness of breath. Patient tolerated diet with no reported nausea or vomiting. Patient has incentive spirometer at the bedside and encourage the patient to take home and continue using while awake. Review of systems: Constitutional: No reports of fatigue, fever, or chills Cardiovascular: No reports of chest pain or palpitations Respiratory: No reports of shortness of breath or cough GI: No reports of nausea, vomiting, or diarrhea : No reports of dysuria or retention Neurovascular: No reports of weakness or numbness All medications have been reviewed PHYSICAL EXAMINATION: GENERAL: The patient is alert and oriented x4, Well developed, well nourished. Obese HEENT: Pupils are round and equally reacting to light. EOMI. no scleral icterus. No conjunctival pallor. Normocephalic, atraumatic. No pharyngeal erythema. No thyromegaly. CARDIOVASCULAR: S1 and S2 muffled PULMONARY: diminished breath sounds bilaterally otherwise clear to auscultation with no wheezing or rhonchi noted. ABDOMEN: soft. Nontender on exam. obese. non-distended, normoactive bowel sounds. No palpable organomegaly. MUSCULOSKELETAL: No joint swelling or deformity. EXTREMITIES: No cyanosis, clubbing, or pedal edema. Left hip surgical incision site is clean dry and intact with no significant erythema noted. Minimal swelling noted and soft and palpable NEUROLOGICAL: Gross neurological examination did not reveal any focal deficits. Diffuse weakness SKIN: No rashes. Assessment: Status post left total hip arthroplasty COPD, not in exacerbation Leukocytosis, mild, likely reactive given patient's recent surgery, no active signs of infection noted Hyperlipidemia Hypertension Previous myocardial infarction with stenting History of anxiety and depression History of coronary artery disease Former smoker Obesity with a BMI of 30.8 GI prophylaxis DVT prophylaxis Full code Plan: Recommend to continue with current medications and management per orthopedic services. Pain management and DVT prophylaxis per orthopedics. Patient is continued on her aspirin and Plavix Home medications reviewed and resumed and recommend resuming blood pressure medications once getting home. Patient's blood pressure medications were held to monitor for postoperative hypotension. patient reports she has history of COPD and was scheduled to receive outpatient O2 at 2-3 L at night as patient has been having low pulse ox readings and underwent sleep study reporting she does not have sleep apnea. Awaiting heart medical to approve her oxygen. Patient maintaining oxygen saturations above 92% while at the hospital. Encouraged continued use of Incentive spirometer at least 10 times every hour while awake. Instructed patient to take the incentive spirometer home Patient was reevaluated by physical therapy and did well tolerated the stairs and will be going home with family Patient is medically stable for discharge once cleared by orthopedics We will continue to follow with orthopedics during hospitalization. Thank you kindly for this consultation The impression and plan of care has been dictated by Olivia London, nurse practitioner as directed. Dr. Betty MD I have performed a history and examination and MDM of this patient, discussed the same with the dictator, and agree with the dictator's assessment and plan as written ,documented as a scribe. Based on total visit time, I have performed more than 50% of the visit. Any additional findings or plans will be noted. Objective - Vital Signs Vital signs: Vital Signs Temp 98.6 F 03/17/23 07:44 Pulse 77 03/17/23 08:32 Resp 17 03/17/23 08:32 BP 145/66 03/17/23 07:44 Pulse Ox 94 L 03/17/23 07:44 FiO2 Intake & Output 03/16/23 03/17/23 03/17/23 18:59 06:59 18:59 Intake Total 650 Balance 650 Intake: Oral 650 Other: Voiding Method Toilet Toilet # Voids 5 2 # Bowel Movements 1 - Labs CBC & Chem 7: 03/16/23 06:36
== END 2023-03-17 14:16 | disposition home health service (06) ==
LOC: OR 09:16 → 4SSUR 13:47 → OR 03-16 14:22 → 4SSUR 03-16 14:22
PROVIDERS: ADMIT Orthopaedic Surgery; ATTEND Orthopaedic Surgery
DX: M16.12 Unilateral primary osteoarthritis, left hip (principal); G89.18 Other acute postprocedural pain; I25.10 Atherosclerotic heart disease of native coronary artery without angina pectoris; J44.9 Chronic obstructive pulmonary disease, unspecified; E78.5 Hyperlipidemia, unspecified; D72.829 Elevated white blood cell count, unspecified; I10 Essential (primary) hypertension; F41.8 Other specified anxiety disorders; I25.2 Old myocardial infarction; E66.9 Obesity, unspecified; Z68.30 Body mass index [BMI] 30.0-30.9, adult; Z87.891 Personal history of nicotine dependence; Z95.5 Presence of coronary angioplasty implant and graft; Z79.899 Other long term (current) drug therapy; Z79.02 Long term (current) use of antithrombotics/antiplatelets; Z79.82 Long term (current) use of aspirin
CPT/HCPCS: 96376; 96365; 96375; 94760 ×2; 97116; 97162; 97530; 97535; 97166; 64447; 85025; 73501; 27130; G0378 ×2; C1776; J2250; J1100; J0690 ×3; J3010; J2795; J2704; J1170 ×2

== ENCOUNTER 2023-04-09 16:41 | Emergency (ER) | payer MEDICARE ==
--- NOTE | 2023-04-09 17:43 | ED ---
Weakness HPI - General Source: patient Mode of arrival: ambulatory Limitations: no limitations <Josue Maradiaga - Last Filed: 04/09/23 17:42> <Gorge Napier - Last Filed: 04/10/23 00:18> - General Chief complaint: Weakness Stated complaint: Weakness Time Seen by Provider: 04/09/23 17:42 - History of Present Illness Initial comments: 77-year-old female presenting with chief complaint of weakness. Symptoms have been worsening over the last 2 weeks. She states that she is constantly tired and feels weak walking even short distances. She also has a decreased appetite. She had a recent hip replacement on March 17, she states that it seems to be healing well and is not causing pain nor is it have any redness or swelling. (Josue Maradiaga) - Related Data Home Medications Medication Instructions Recorded Confirmed amLODIPine BESYLATE [Norvasc] 5 mg PO BID 10/14/15 03/15/23 Omeprazole 20 mg PO QAM 02/23/17 03/15/23 Atorvastatin [Lipitor] 40 mg PO HS 07/31/20 03/15/23 Ergocalciferol [Vitamin D2 (1250 1,250 mcg PO FR 08/17/20 03/15/23 Mcg = 57673 Iu)] Aspirin EC [Ecotrin Low Dose] 81 mg PO DAILY 01/25/21 03/10/23 Thiamine [Vitamin B-1] 100 mg PO DAILY 01/25/21 03/15/23 OLANZapine 5 mg PO HS 06/14/22 03/15/23 hydrALAZINE HCL [Apresoline] 25 mg PO TID 06/14/22 03/15/23 hydroCHLOROthiazide [Hydrodiuril] 25 mg PO QAM 06/14/22 03/15/23 clonazePAM [KlonoPIN] 0.5 mg PO QAM 03/10/23 03/15/23 Previous Rx's Medication Instructions Recorded Clopidogrel [Plavix] 75 mg PO DAILY #30 tab 02/24/17 HYDROcodone/APAP 7.5-325MG [Clanton 1 - 2 tab PO Q6HR PRN #32 tab 03/17/23 7.5-325] Sennosides/Docusate Sodium [Senna 1 each PO DAILY #20 capsule 03/17/23 Plus 8.6-50 mg Softgel] Cephalexin [Keflex] 500 mg PO Q6HR #21 cap 04/10/23 Allergies Allergy/AdvReac Type Severity Reaction Status Date / Time zolpidem tartrate AdvReac Severe Hallucinati Verified 04/09/23 17:08 [From Marlene] ons Review of Systems ROS Other: All systems not noted in ROS Statement are negative. <Josue Maradiaga - Last Filed: 04/09/23 17:42> ROS Other: All systems not noted in ROS Statement are negative. <Gorge Napier - Last Filed: 04/10/23 00:18> ROS Statement: Those systems with pertinent positive or pertinent negative responses have been documented in the HPI. Past Medical History Past Medical History: Coronary Artery Disease (CAD), Chest Pain / Angina, COPD, Hypertension, Syncope, Thyroid Disorder Additional Past Medical History / Comment(s): parathyroid nodules, high calcium Last Myocardial Infarction Date:: 12/2014 History of Any Multi-Drug Resistant Organisms: None Reported Past Surgical History: Heart Catheterization With Stent Additional Past Surgical History / Comment(s): cyst removed from back, heart cath with a stent placed 12/2014. parathyroid removal Past Anesthesia/Blood Transfusion Reactions: No Reported Reaction Date of Last Stent Placement:: 12/03/2014 Past Psychological History: Anxiety, Depression Smoking Status: Never smoker Past Alcohol Use History: Occasional, Rare Past Drug Use History: None Reported - Past Family History Father Family Medical History: No Reported History Additional Family Medical History / Comment(s): FATHER AT AGE 70. PT UNSURE WHAT EXACTLY HE FROM. Had arthritis and both legs amputated. Mother Family Medical History: Congestive Heart Failure (CHF) Additional Family Medical History / Comment(s): MOTHER AT AGE 91 YRS. Son(s) Family Medical History: Cancer Additional Family Medical History / Comment(s): Brain tumor, . Daughter(s) Family Medical History: Deep Vein Thrombosis (DVT) <Josue Maradiaga - Last Filed: 04/09/23 17:42> General Exam Limitations: no limitations <Josue Maradiaga - Last Filed: 04/09/23 17:42> - General Exam Comments Initial Comments: Visual Physical Exam Vital signs reviewed General: Well-appearing, nontoxic, no acute distress. Head: Normocephalic, atraumatic Eyes: PERRLA, EOMI ENT: Airway patent Chest: Nonlabored breathing Skin: No visual rash, normal skin tone Neuro: Alert and oriented 3 Musculoskeletal: No gross abnormalities (Josue Maradiaga) Course <Gorge Napier - Last Filed: 04/10/23 00:18> Vital Signs 04/09/23 04/09/23 17:06 22:09 Temperature 98.8 F Pulse Rate 72 63 Respiratory 20 16 Rate Blood Pressure 137/66 143/80 O2 Sat by Pulse 96 98 Oximetry - Reevaluation(s) Reevaluation #4: 04/09/23 22:12 Was pt. sent in by a medical professional or institution (ARCELIA Osorio, CERTIFIED ANESTHESIOLOGIST ASSISTANT, urgent care, hospital, or jail...) When possible be specific @ -no Did you speak to anyone other than the patient for history (EMS, parent, family, police, friend...)? What history was obtained from this source @ -no Did you review nursing and triage notes (agree or disagree)? Why? @ -agree Are old charts reviewed (outside hosp., previous admission, EMS record, old EKG, old radiological studies, urgent care reports/EKG's, jail records)? Report findings @ -yes Differential Diagnosis (chest pain, altered mental status, abdominal pain women, abdominal pain men, vaginal bleeding, weakness, fever, dyspnea, syncope, headache, dizziness, GI bleed, back pain, seizure, CVA, palpatations, mental health, musculoskeletal)? @ -prior EKG interpreted by me (3pts min.). @ -yes X-rays interpreted by me (1pt min.). @ -yes CT interpreted by me (1pt min.). @ -no U/S interpreted by me (1pt. min.). @ -no What testing was considered but not performed or refused? (CT, X-rays, U/S, labs)? Why? @ -none What meds were considered but not given or refused? Why? @ -none Did you discuss the management of the patient with other professionals (professionals i.e. ARCELIA Osorio, CERTIFIED ANESTHESIOLOGIST ASSISTANT, lab, RT, psych nurse, home health care social worker, grind operator, teacher, landcare officer, renal case manager)? Give summary @ -no Was smoking cessation discussed for >3mins.? @ -no Was critical care preformed (if so, how long)? @ -no Were there social determinants of health that impacted care today? How? (Homelessness, low income, unemployed, alcoholism, drug addiction, transportation, low edu. Level, literacy, decrease access to med. care, fdc, rehab)? @ -none Was there de-escalation of care discussed even if they declined (Discuss DNR or withdrawal of care, Hospice)? DNR status @ -no What co-morbidities impacted this encounter? (DM, HTN, Smoking, COPD, CAD, Cancer, CVA, ARF, Chemo, Hep., AIDS, mental health diagnosis, sleep apnea, morbid obesity)? @ -none Was patient admitted / discharged? Hospital course, mention meds given and route, prescriptions, significant lab abnormalities, going to OR and other pertinent info. @ - Undiagnosed new problem with uncertain prognosis? @ -no Drug Therapy requiring intensive monitoring for toxicity (Heparin, Nitro, Insulin, Cardizem)? @ -no Were any procedures done? @ -no Diagnosis/symptom? @ - Acute, or Chronic, or Acute on Chronic? @ -Acute Uncomplicated (without systemic symptoms) or Complicated (systemic symptoms)? @ -Complicated Side effects of treatment? @ -no Exacerbation, Progression, or Severe Exacerbation? @ -exacerbation Poses a threat to life or bodily function? How? (Chest pain, USA, DE, pneumonia, PE, COPD, DKA, ARF, appy, cholecystitis, CVA, Diverticulitis, Homicidal, Suicidal, threat to staff... and all critical care pts) @ -yes (Gorge Napier) Medical Decision Making - Lab Data Result diagrams: 04/09/23 18:00 04/09/23 18:00 <Gorge Napier - Last Filed: 04/10/23 00:18> - Lab Data Lab Results 04/09/23 04/09/23 04/09/23 Range/Units 17:35 18:00 18:00 WBC 9.3 (3.8-10.6) k/uL RBC 4.36 (3.80-5.40) m/uL Hgb 12.0 (11.4-16.0) gm/dL Hct 37.5 (34.0-46.0) % MCV 86.2 (80.0-100.0) fL MCH 27.4 (25.0-35.0) pg MCHC 31.8 (31.0-37.0) g/dL RDW 14.1 (11.5-15.5) % Plt Count 363 (150-450) k/uL MPV 8.5 Neutrophils % 71 % Lymphocytes % 22 % Monocytes % 4 % Eosinophils % 1 % Basophils % 0 % Neutrophils # 6.6 (1.3-7.7) k/uL Lymphocytes # 2.0 (1.0-4.8) k/uL Monocytes # 0.4 (0-1.0) k/uL Eosinophils # 0.1 (0-0.7) k/uL Basophils # 0.0 (0-0.2) k/uL Hypochromasia Moderate Poikilocytosis Slight PT 10.1 (10.0-12.5) sec INR 0.9 (<1.2) APTT 19.1 L (22.0-30.0) sec Sodium (137-145) mmol/L Potassium (3.5-5.1) mmol/L Chloride (98-107) mmol/L Carbon Dioxide (22-30) mmol/L Anion Gap mmol/L BUN (7-17) mg/dL Creatinine (0.52-1.04) mg/dL Est GFR (CKD-EPI)AfAm (>60 ml/min/1.73 sqM) Est GFR (CKD-EPI)NonAf (>60 ml/min/1.73 sqM) Glucose (74-99) mg/dL Plasma Lactic Acid Geoffrey (0.7-2.0) mmol/L Calcium (8.4-10.2) mg/dL Magnesium (1.6-2.3) mg/dL Total Bilirubin (0.2-1.3) mg/dL AST (14-36) U/L ALT (4-34) U/L Alkaline Phosphatase (38-126) U/L Troponin I (0.000-0.034) ng/mL Total Protein (6.3-8.2) g/dL Albumin (3.5-5.0) g/dL TSH (0.465-4.680) mIU/L Urine Color Urine Appearance (Clear) Urine pH (5.0-8.0) Ur Specific Williamson (1.001-1.035) Urine Protein (Negative) Urine Glucose (UA) (Negative) Urine Ketones (Negative) Urine Blood (Negative) Urine Nitrite (Negative) Urine Bilirubin (Negative) Urine Urobilinogen (<2.0) mg/dL Ur Leukocyte Esterase (Negative) Urine RBC (0-5) /hpf Urine WBC (0-5) /hpf Ur Squamous Epith Cells (0-4) /hpf Urine Bacteria (None) /hpf Hyaline Casts (0-2) /lpf Urine Mucus (None) /hpf Influenza Type A (PCR) Not Detected (Not Detectd) Influenza Type B (PCR) Not Detected (Not Detectd) RSV (PCR) Not Detected (Not Detectd) SARS-CoV-2 (PCR) Not Detected (Not Detectd) 04/09/23 04/09/23 04/09/23 Range/Units 18:00 18:00 22:05 WBC (3.8-10.6) k/uL RBC (3.80-5.40) m/uL Hgb (11.4-16.0) gm/dL Hct (34.0-46.0) % MCV (80.0-100.0) fL MCH (25.0-35.0) pg MCHC (31.0-37.0) g/dL RDW (11.5-15.5) % Plt Count (150-450) k/uL MPV Neutrophils % % Lymphocytes % % Monocytes % % Eosinophils % % Basophils % % Neutrophils # (1.3-7.7) k/uL Lymphocytes # (1.0-4.8) k/uL Monocytes # (0-1.0) k/uL Eosinophils # (0-0.7) k/uL Basophils # (0-0.2) k/uL Hypochromasia Poikilocytosis PT (10.0-12.5) sec INR (<1.2) APTT (22.0-30.0) sec Sodium 140 (137-145) mmol/L Potassium 3.8 (3.5-5.1) mmol/L Chloride 99 (98-107) mmol/L Carbon Dioxide 27 (22-30) mmol/L Anion Gap 14 mmol/L BUN 24 H (7-17) mg/dL Creatinine 0.74 (0.52-1.04) mg/dL Est GFR (CKD-EPI)AfAm 90 (>60 ml/min/1.73 sqM) Est GFR (CKD-EPI)NonAf 78 (>60 ml/min/1.73 sqM) Glucose 107 H (74-99) mg/dL Plasma Lactic Acid Geoffrey 1.1 (0.7-2.0) mmol/L Calcium 11.0 H (8.4-10.2) mg/dL Magnesium 1.9 (1.6-2.3) mg/dL Total Bilirubin 0.6 (0.2-1.3) mg/dL AST 30 (14-36) U/L ALT 16 (4-34) U/L Alkaline Phosphatase 147 H (38-126) U/L Troponin I <0.012 (0.000-0.034) ng/mL Total Protein 7.5 (6.3-8.2) g/dL Albumin 4.7 (3.5-5.0) g/dL TSH (0.465-4.680) mIU/L Urine Color Urine Appearance (Clear) Urine pH (5.0-8.0) Ur Specific Williamson (1.001-1.035) Urine Protein (Negative) Urine Glucose (UA) (Negative) Urine Ketones (Negative) Urine Blood (Negative) Urine Nitrite (Negative) Urine Bilirubin (Negative) Urine Urobilinogen (<2.0) mg/dL Ur Leukocyte Esterase (Negative) Urine RBC (0-5) /hpf Urine WBC (0-5) /hpf Ur Squamous Epith Cells (0-4) /hpf Urine Bacteria (None) /hpf Hyaline Casts (0-2) /lpf Urine Mucus (None) /hpf Influenza Type A (PCR) (Not Detectd) Influenza Type B (PCR) (Not Detectd) RSV (PCR) (Not Detectd) SARS-CoV-2 (PCR) (Not Detectd) 04/09/23 04/09/23 Range/Units 22:05 23:00 WBC (3.8-10.6) k/uL RBC (3.80-5.40) m/uL Hgb (11.4-16.0) gm/dL Hct (34.0-46.0) % MCV (80.0-100.0) fL MCH (25.0-35.0) pg MCHC (31.0-37.0) g/dL RDW (11.5-15.5) % Plt Count (150-450) k/uL MPV Neutrophils % % Lymphocytes % % Monocytes % % Eosinophils % % Basophils % % Neutrophils # (1.3-7.7) k/uL Lymphocytes # (1.0-4.8) k/uL Monocytes # (0-1.0) k/uL Eosinophils # (0-0.7) k/uL Basophils # (0-0.2) k/uL Hypochromasia Poikilocytosis PT (10.0-12.5) sec INR (<1.2) APTT (22.0-30.0) sec Sodium (137-145) mmol/L Potassium (3.5-5.1) mmol/L Chloride (98-107) mmol/L Carbon Dioxide (22-30) mmol/L Anion Gap mmol/L BUN (7-17) mg/dL Creatinine (0.52-1.04) mg/dL Est GFR (CKD-EPI)AfAm (>60 ml/min/1.73 sqM) Est GFR (CKD-EPI)NonAf (>60 ml/min/1.73 sqM) Glucose (74-99) mg/dL Plasma Lactic Acid Geoffrey (0.7-2.0) mmol/L Calcium (8.4-10.2) mg/dL Magnesium 1.9 (1.6-2.3) mg/dL Total Bilirubin (0.2-1.3) mg/dL AST (14-36) U/L ALT (4-34) U/L Alkaline Phosphatase (38-126) U/L Troponin I (0.000-0.034) ng/mL Total Protein (6.3-8.2) g/dL Albumin (3.5-5.0) g/dL TSH 2.340 (0.465-4.680) mIU/L Urine Color Yellow Urine Appearance Clear (Clear) Urine pH 5.5 (5.0-8.0) Ur Specific Williamson 1.025 (1.001-1.035) Urine Protein Negative (Negative) Urine Glucose (UA) Negative (Negative) Urine Ketones Negative (Negative) Urine Blood Negative (Negative) Urine Nitrite Negative (Negative) Urine Bilirubin Negative (Negative) Urine Urobilinogen <2.0 (<2.0) mg/dL Ur Leukocyte Esterase Large H (Negative) Urine RBC 1 (0-5) /hpf Urine WBC 73 H (0-5) /hpf Ur Squamous Epith Cells 2 (0-4) /hpf Urine Bacteria Rare H (None) /hpf Hyaline Casts 24 H (0-2) /lpf Urine Mucus Few H (None) /hpf Influenza Type A (PCR) (Not Detectd) Influenza Type B (PCR) (Not Detectd) RSV (PCR) (Not Detectd) SARS-CoV-2 (PCR) (Not Detectd) Disposition <Josue Maradiaga - Last Filed: 04/09/23 17:42> Is patient prescribed a controlled substance at d/c from ED?: No Time of Disposition: 23:55 <Gorge Napier - Last Filed: 04/10/23 00:18> Clinical Impression: UTI (urinary tract infection), Weakness Disposition: HOME SELF-CARE Condition: Good Instructions (If sedation given, give patient instructions): Weakness (ED) Prescriptions: Cephalexin [Keflex] 500 mg PO Q6HR #21 cap Referrals: Miladis Blanton MD [Primary Care Provider] - 1-2 days
[2023-04-09 18:28] LABS: Basophils % (A) 0 %; Eosinophils # (A) 0.1 k/uL (0-0.7); Eosinophils % (A) 1 %; HCT 37.5 % (34.0-46.0); Hypochromasia Moderate; Lymphocytes % (A) 22 %; MCH 27.4 pg (25.0-35.0); MCHC 31.8 g/dL (31.0-37.0); MCV 86.2 fL (80.0-100.0); Mean Platelet Volume 8.5; Monocytes # (A) 0.4 k/uL (0-1.0); Monocytes % (A) 4 %; Neutrophils # (A) 6.6 k/uL (1.3-7.7); Neutrophils % (A) 71 %; Platelet Count 363 k/uL (150-450); Poikilocytosis Slight; RBC 4.36 m/uL (3.80-5.40); RDW 14.1 % (11.5-15.5); WBC 9.3 k/uL (3.8-10.6)
--- NOTE | 2023-04-09 18:37 | XR ---
EXAMINATION TYPE: XR chest 2V DATE OF EXAM: 04/09/2023 COMPARISON: 01/25/2021 HISTORY: 77-year-old female with cough TECHNIQUE: PA and lateral views FINDINGS: The cardiomediastinal silhouette, aorta, and pulmonary vasculature are within normal limits. Hyperinf lation. Large appearance to the right main pulmonary artery on the lateral view. Calcified granuloma suggested at the right base. Otherwise, no consolidation or pleural effusion. IMPRESSION: Correlate for COPD with pulmonary arterial hypertension. No acute process seen.
[2023-04-09 18:41] LABS: ALT 16 U/L (4-34); AST 30 U/L (14-36); African American GFR (CKD) 90 (>60 ml/min/1.73 sqM); Albumin 4.7 g/dL (3.5-5.0); Alkaline Phosphatase 147 U/L (38-126); Anion Gap 14 mmol/L; Blood Urea Nitrogen 24 mg/dL (7-17); Carbon Dioxide 27 mmol/L (22-30); Chloride 99 mmol/L (98-107); Glucose 107 mg/dL (74-99); Magnesium 1.9 mg/dL (1.6-2.3); Non-African American GFR(CKD) 78 (>60 ml/min/1.73 sqM); Potassium 3.8 mmol/L (3.5-5.1); Sodium 140 mmol/L (137-145); Total Bilirubin 0.6 mg/dL (0.2-1.3); Total Protein 7.5 g/dL (6.3-8.2)
[2023-04-09 18:57] LABS: INR 0.9 (<1.2); Prothrombin Time 10.1 sec (10.0-12.5)
[2023-04-09 19:00] LABS: Partial Thromboplastin Time 19.1 sec (22.0-30.0)
[2023-04-09] MEDS ORDERED: SODIUM CHLORIDE 0.9% 1,000 ML IV STA ×2 (21:37)
[2023-04-09] MEDS ORDERED: methylPREDNISolone SOD SUCCI 125 MG/2 ML VIAL IV STA (21:38)
[2023-04-09] MEDS ORDERED: IPRATROPIUM-ALBUTEROL 3 ML NEB INHALATION STA (21:38)
[2023-04-09 22:25] LABS: Magnesium 1.9 mg/dL (1.6-2.3)
[2023-04-09 23:33] LABS: Appearance,Urine Clear (Clear); Bacteria,Urine Rare /hpf; Bilirubin,Urine Negative (Negative); Blood,Urine Negative (Negative); Color,Urine Yellow; Glucose,Urine (UA) Negative (Negative); Hyaline Casts,Urine 24 /lpf (0-2); Ketones,Urine Negative (Negative); Leukocyte Esterase,Urine Large (Negative); Mucus,Urine Few /hpf; Nitrite,Urine Negative (Negative); PH, Urine 5.5 (5.0-8.0); Protein,Urine Negative (Negative); RBC,Urine 1 /hpf (0-5); Specific Gravity,Urine 1.025 (1.001-1.035); Squamous Epithelial Cell,Urine 2 /hpf (0-4); Urobilinogen,Urine <2.0 mg/dL (<2.0); WBC,Urine 73 /hpf (0-5)
[2023-04-09] MEDS ORDERED: CEPHALEXIN 500MG STARTER PACK 4 CAP BTL PO STA (23:59)
[2023-04-09] MEDS ORDERED: cefTRIAXone IN SWFI 1,000 MG/10 ML SYRINGE IVP STA (23:59)
[2023-04-09] MEDS ORDERED: CEPHALEXIN 500 MG CAP PO STA (23:59)
[2023-04-10 00:57] VITALS: BP 140/74; PULSE 86; RESP 18; TEMP 98.5
== END 2023-04-10 00:39 | disposition home or self-care (01) ==
LOC: EC 16:41
DX: N39.0 Urinary tract infection, site not specified (principal); R53.1 Weakness; I10 Essential (primary) hypertension; J44.9 Chronic obstructive pulmonary disease, unspecified; I25.10 Atherosclerotic heart disease of native coronary artery without angina pectoris; F41.9 Anxiety disorder, unspecified; F32.A Depression, unspecified; Z79.82 Long term (current) use of aspirin; Z79.899 Other long term (current) drug therapy; Z88.8 Allergy status to other drugs, medicaments and biological substances; Z20.822 Contact with and (suspected) exposure to COVID-19
CPT/HCPCS: 36415; 80053; 83605; 83735; 84443; 84484; 85025; 85610; 85730; 81001; 87086; 87636; 71046; 96374; 96361 ×2; 99285; J0696

== ENCOUNTER → 2023-05-30 | Outpatient (CLI) | payer MEDICARE ==
--- NOTE | 2023-05-30 09:49 | USB ---
Reason for Exam: Follow-up at short interval from prior study. Patient History: Menarche at age 7. First Full-Term at age 20. Postmenopausal. Risk Values: Stephania 5 year model risk: 1.7%. NCI Lifetime model risk: 2.8%. Technique: Method: Targeted. Prior Study Comparison: 10/17/2015 Bilateral Screening Mammogram, [facility]. 06/23/2017 Bilateral Screening Mammogram, [facility]. 10/15/2022 Bilateral MG 3D diag mammo w/cad JUDD, [facility]. Findings: The upper inner quadrant of the left breast, the axilla of the left breast and the retroareolar of the left breast were scanned. No solid or cystic masses are identified.. Previous hyperechoic area identified on previous ultrasound is not evident on the current examination. Overall Assessment: Negative, BI-RAD 1 Management: Screening Mammogram of both breasts in 5 months. A clinical breast exam by your physician is recommended on an annual basis and results should be correlated with mammographic findings. This exam should not preclude additional follow-up of suspicious palpable abnormalities. Results were given to the patient verbally at the time of exam. Electronically signed and approved by: Fernando Peña D.O. Radiologis
== END | disposition home or self-care (01) ==
LOC: RADUSWWP 09:11
PROVIDERS: ATTEND Family Medicine
DX: N63.20 Unspecified lump in the left breast, unspecified quadrant (principal); Z78.0 Asymptomatic menopausal state

== ENCOUNTER 2023-07-17 14:50 | Emergency (ER) | payer MEDICARE ==
--- NOTE | 2023-07-17 15:04 | ED ---
General Adult HPI - General Source: patient, family, RN notes reviewed Mode of arrival: ambulatory Limitations: no limitations <Sara Taylor - Last Filed: 07/17/23 15:04> <Simone Griggs - Last Filed: 07/17/23 17:25> - General Stated complaint: Slurred Speech Time Seen by Provider: 07/17/23 15:04 - History of Present Illness Initial comments: Quick note: 77-year-old female presented to the ER with a chief complaint of slurring words. She states for the past couple of days she has been slurring her words. Denies any weakness or facial droop. (Sara Taylor) 77-year-old female with intermittent slurred speech for the past 3 days. Patient has previous history of TIA. She is currently on aspirin, Plavix, Lipitor. She denies headache. Denies chest pain. Denies limb numbness or weakness. States her symptom is currently resolved at this time. (Simone Griggs) - Related Data Home Medications Medication Instructions Recorded Confirmed amLODIPine BESYLATE [Norvasc] 5 mg PO BID 10/14/15 03/15/23 Omeprazole 20 mg PO QAM 02/23/17 03/15/23 Atorvastatin [Lipitor] 40 mg PO HS 07/31/20 03/15/23 Ergocalciferol [Vitamin D2 (1250 1,250 mcg PO FR 08/17/20 03/15/23 Mcg = 71388 Iu)] Aspirin EC [Ecotrin Low Dose] 81 mg PO DAILY 01/25/21 03/10/23 Thiamine [Vitamin B-1] 100 mg PO DAILY 01/25/21 03/15/23 OLANZapine 5 mg PO HS 06/14/22 03/15/23 hydrALAZINE HCL [Apresoline] 25 mg PO TID 06/14/22 03/15/23 hydroCHLOROthiazide [Hydrodiuril] 25 mg PO QAM 06/14/22 03/15/23 clonazePAM [KlonoPIN] 0.5 mg PO QAM 03/10/23 03/15/23 Previous Rx's Medication Instructions Recorded Clopidogrel [Plavix] 75 mg PO DAILY #30 tab 02/24/17 HYDROcodone/APAP 7.5-325MG [Ellabell 1 - 2 tab PO Q6HR PRN #32 tab 03/17/23 7.5-325] Sennosides/Docusate Sodium [Senna 1 each PO DAILY #20 capsule 03/17/23 Plus 8.6-50 mg Softgel] Cephalexin [Keflex] 500 mg PO Q6HR #21 cap 04/10/23 Allergies Allergy/AdvReac Type Severity Reaction Status Date / Time zolpidem tartrate AdvReac Severe Hallucinati Verified 07/17/23 15:16 [From Marlene] ons Review of Systems ROS Other: All systems not noted in ROS Statement are negative. <Sara Taylor - Last Filed: 07/17/23 15:04> ROS Other: All systems not noted in ROS Statement are negative. <Simone Griggs - Last Filed: 07/17/23 17:25> ROS Statement: Those systems with pertinent positive or pertinent negative responses have been documented in the HPI. Past Medical History Past Medical History: Coronary Artery Disease (CAD), Chest Pain / Angina, COPD, Hypertension, Syncope, Thyroid Disorder Additional Past Medical History / Comment(s): parathyroid nodules, high calcium Last Myocardial Infarction Date:: 12/2014 History of Any Multi-Drug Resistant Organisms: None Reported Past Surgical History: Heart Catheterization With Stent Additional Past Surgical History / Comment(s): cyst removed from back, heart cath with a stent placed 12/2014. parathyroid removal Past Anesthesia/Blood Transfusion Reactions: No Reported Reaction Date of Last Stent Placement:: 12/03/2014 Past Psychological History: Anxiety, Depression Smoking Status: Never smoker Past Alcohol Use History: Occasional, Rare Past Drug Use History: None Reported - Past Family History Father Family Medical History: No Reported History Additional Family Medical History / Comment(s): FATHER AT AGE 70. PT UNSURE WHAT EXACTLY HE FROM. Had arthritis and both legs amputated. Mother Family Medical History: Congestive Heart Failure (CHF) Additional Family Medical History / Comment(s): MOTHER AT AGE 91 YRS. Son(s) Family Medical History: Cancer Additional Family Medical History / Comment(s): Brain tumor, . Daughter(s) Family Medical History: Deep Vein Thrombosis (DVT) <Sara Taylor - Last Filed: 07/17/23 15:04> General Exam <Sara Taylor - Last Filed: 07/17/23 15:04> General appearance: alert, in no apparent distress Head exam: Present: atraumatic, normocephalic Eye exam: Present: normal appearance, PERRL ENT exam: Present: normal exam Neck exam: Present: normal inspection Respiratory exam: Present: normal lung sounds bilaterally. Absent: respiratory distress, wheezes Cardiovascular Exam: Present: regular rate, normal rhythm GI/Abdominal exam: Present: soft. Absent: distended, tenderness, guarding Extremities exam: Present: normal inspection, normal capillary refill Neurological exam: Present: alert, oriented X3, CN II-XII intact, other (NIH of 0). Absent: motor sensory deficit Psychiatric exam: Present: normal affect, normal mood Skin exam: Present: warm, dry, intact. Absent: cyanosis, diaphoretic <Simone Griggs - Last Filed: 07/17/23 17:25> - General Exam Comments Initial Comments: Visual Physical Exam Vital signs reviewed General: Well-appearing, nontoxic, no acute distress. Head: Normocephalic, atraumatic Eyes: PERRLA, EOMI ENT: Airway patent Chest: Nonlabored breathing Skin: No visual rash, normal skin tone Neuro: Alert and oriented 3 Musculoskeletal: No gross abnormalities (Sara Taylor) Course Vital Signs 07/17/23 15:12 Temperature 98.0 F Pulse Rate 61 Respiratory 18 Rate Blood Pressure 161/83 O2 Sat by Pulse 94 L Oximetry Medical Decision Making <Sara Taylor - Last Filed: 07/17/23 15:04> - Lab Data Result diagrams: 07/17/23 15:13 07/17/23 15:13 <Simone Griggs - Last Filed: 07/17/23 17:25> - Medical Decision Making I performed the quick note portion of this chart. Electronically signed by Sara Taylor PA-C (Sara Taylor) Was pt. sent in by a medical professional or institution ([facility] Osorio, FOREST SCIENCE PROFESSOR, urgent care, hospital, or retirement...) When possible be specific @ -No Did you speak to anyone other than the patient for history (EMS, parent, family, police, friend...)? What history was obtained from this source @ -No Did you review nursing and triage notes (agree or disagree)? Why? @ -I reviewed and agree with nursing and triage notes Were old charts reviewed (outside hosp., previous admission, EMS record, old E KG, old radiological studies, urgent care reports/EKG's, retirement records)? Report findings @ -No old charts were reviewed Differential Diagnosis differential CVA Ischemic stroke, hemorrhagic stroke, brain tumor, atypical migraine, Wernicke's encephalopathy, seizure, multiple sclerosis, meningitis, encephalitis, hypoglycemia, Guillain-Rubio, electrolytes disturbance, myasthenia gravis.... Th is is not meant to be an all-inclusive list EKG interpreted by me (3pts min.). @ -EKG sinus bradycardia rate of 52, OH interval 199, QRS duration 100, QTc [address] segment elevation. X-rays interpreted by me (1pt min.). @ -None done CT interpreted by me (1pt min.). @CT brain without intracranial hemorrhage or mass effect U/S interpreted by me (1pt. min.). @ -None done What testing was considered but not performed or refused? (CT, X-rays, U/S, labs)? Why? @ -None What meds were considered but not given or refused? Why? @ -None Did you discuss the management of the patient with other professionals (professionals i.e. , PA, FOREST SCIENCE PROFESSOR, lab, RT, psych nurse, social services technician, cloth shrinking tester, teacher, special police officer, hospice case manager)? Give summary @ -No Was smoking cessation discussed for >3mins.? @ -No Was critical care preformed (if so, how long)? @ -No Were there social determinants of health that impacted care today? How? (Homelessness, low income, unemployed, alcoholism, drug addiction, transpor tation, low edu. Level, literacy, decrease access to med. care, group home, rehab)? @ -No Was there de-escalation of care discussed even if they declined (Discuss DNR or withdrawal of care, Hospice)? DNR status @ -No What co-morbidities impacted this encounter? (DM, HTN, Smoking, COPD, CAD, Cancer, CVA, ARF, Chemo, Hep., AIDS, mental health diagnosis, sleep apnea, morbid obesity)? @ -Previous TIA Was patient admitted / discharged? Hospital course, mention meds given and route, prescriptions, significant lab abnormalities, going to OR and other pertinent info. @ -[77-year-old female with intermittent slurred speech over the past 3 days. Symptoms resolved at the time my evaluation. NIH of 0. Patient is on aspirin, Plavix and Lipitor. No headache. Head CT negative for intracranial emergent mass effect. Normal laboratory testing. I did discuss the possibility of admission for further TIA stroke evaluation in this patient including MRI and neurology consultation. Patient prefers discharge with close outpatient follow- up with her primary care provider. I did inform the patient that if her symptoms should return or she should develop any other stroke symptoms she should return to the emergency department immediately. She will continue taking medications as prescribed. Undiagnosed new problem with uncertain prognosis? @ -No Drug Therapy requiring intensive monitoring for toxicity (Heparin, Nitro, Insulin, Cardizem)? @ -No Were any procedures done? @ -No Diagnosis/symptom? @ -TIA Acute, or Chronic, or Acute on Chronic? @ -[Acute Uncomplicated (without systemic symptoms) or Complicated (systemic symptoms)? @ -Default Side effects of treatment? @ -No Exacerbation, Progression, or Severe Exacerbation? @ -No Poses a threat to life or bodily function? How? (Chest pain, USA, IA, pneumonia, PE, COPD, DKA, ARF, appy, cholecystitis, CVA, Diverticulitis, Homicidal, Suici mario alberto, threat to staff... and all critical care pts) @ -Low risk at this time (Simone Griggs) - Lab Data Lab Results 07/17/23 07/17/23 Range/Units 15:13 15:13 WBC 8.5 (3.8-10.6) k/uL RBC 4.65 (3.80-5.40) m/uL Hgb 11.8 (11.4-16.0) gm/dL Hct 37.9 (34.0-46.0) % MCV 81.6 (80.0-100.0) fL MCH 25.3 (25.0-35.0) pg MCHC 31.0 (31.0-37.0) g/dL RDW 15.0 (11.5-15.5) % Plt Count 268 (150-450) k/uL MPV 8.6 Sodium 139 (137-145) mmol/L Potassium 4.0 (3.5-5.1) mmol/L Chloride 104 (98-107) mmol/L Carbon Dioxide 28 (22-30) mmol/L Anion Gap 7 mmol/L BUN 20 H (7-17) mg/dL Creatinine 0.86 (0.52-1.04) mg/dL Est GFR (CKD-EPI)AfAm 75 (>60 ml/min/1.73 sqM) Est GFR (CKD-EPI)NonAf 65 (>60 ml/min/1.73 sqM) Glucose 94 (74-99) mg/dL Calcium 10.3 H (8.4-10.2) mg/dL Total Bilirubin 0.4 (0.2-1.3) mg/dL AST 21 (14-36) U/L ALT 15 (4-34) U/L Alkaline Phosphatase 134 H (38-126) U/L Total Protein 6.8 (6.3-8.2) g/dL Albumin 4.2 (3.5-5.0) g/dL Disposition <Sara Taylor - Last Filed: 07/17/23 15:04> Is patient prescribed a controlled substance at d/c from ED?: No Time of Disposition: 17:04 <Simone Griggs - Last Filed: 07/17/23 17:25> Clinical Impression: Transient cerebral ischemia Disposition: HOME SELF-CARE Condition: Fair Instructions (If sedation given, give patient instructions): Transient Ischemic Attack (ED) Additional Instructions: Please follow closely with your primary care provider. Please return to the emergency department with any new or worsening symptoms, return immediately. Referrals: Miladis Blanton MD [Primary Care Provider] - 1-2 days
[2023-07-17 16:02] VITALS: RESP 18; TEMP 98
[2023-07-17 16:09] LABS: HCT 37.9 % (34.0-46.0); HGB 11.8 gm/dL (11.4-16.0); MCH 25.3 pg (25.0-35.0); MCV 81.6 fL (80.0-100.0); Mean Platelet Volume 8.6; Platelet Count 268 k/uL (150-450); RBC 4.65 m/uL (3.80-5.40); WBC 8.5 k/uL (3.8-10.6)
--- NOTE | 2023-07-17 16:20 | CT ---
EXAMINATION TYPE: CT brain wo con CT DLP: 1138.4 mGycm, Automated exposure control for dose reduction was used. DATE OF EXAM: 07/17/2023 4:14 PM COMPARISON: CT head 02/23/2017. CLINICAL INDICATION:Female, 77 years old with history of slurring words, slurring words TECHNIQUE: Brain: Axial CT images of the brain were obtained with coronal and sagittal reformats created and rev iewed. Contrast used: None. Oral contrast used: None. FINDINGS: Brain: Extra-axial spaces: No abnormal extra-axial fluid collections. Ventricular system: Within normal limits Cerebral parenchyma: No acute intraparenchymal hemorrhage or mass effect. The rosen-white junction is well differentiated. Scattered hypoattenuating areas are seen within the white matter. Mild general ized parenchymal volume loss. Cerebellum: Unremarkable. Mass effect: No evidence of midline shift. Intracranial vasculature: Atherosclerotic calcifications of the intracranial vessels. Soft tissues: Normal. Calvarium/osseous structures: No depressed skull fracture. Paranasal sinuses and mastoid air cells: Mild scattered paranasal sinus disease. Visualized orbits: Orbital contents are intact. IMPRESSION: 1. No acute intracranial process. 2. Nonspecific white matter changes, likely secondary to chronic small vessel ischemic disease.
[2023-07-17 16:23] LABS: ALT 15 U/L (4-34); AST 21 U/L (14-36); African American GFR (CKD) 75 (>60 ml/min/1.73 sqM); Albumin 4.2 g/dL (3.5-5.0); Alkaline Phosphatase 134 U/L (38-126); Anion Gap 7 mmol/L; Blood Urea Nitrogen 20 mg/dL (7-17); Calcium 10.3 mg/dL (8.4-10.2); Carbon Dioxide 28 mmol/L (22-30); Chloride 104 mmol/L (98-107); Glucose 94 mg/dL (74-99); Non-African American GFR(CKD) 65 (>60 ml/min/1.73 sqM); Sodium 139 mmol/L (137-145); Total Bilirubin 0.4 mg/dL (0.2-1.3); Total Protein 6.8 g/dL (6.3-8.2)
[2023-07-17 18:01] VITALS: BP 168/73; PULSE 50
== END 2023-07-17 17:25 | disposition home or self-care (01) ==
LOC: EC 14:50
DX: G45.9 Transient cerebral ischemic attack, unspecified (principal); Z88.8 Allergy status to other drugs, medicaments and biological substances
CPT/HCPCS: 36415; 70450; 80053; 85027; 93005; 99285

== ENCOUNTER → 2023-07-22 | Outpatient (CLI) | payer MEDICARE ==
--- NOTE | 2023-07-22 12:06 | US ---
EXAMINATION TYPE: US carotid duplex BILAT DATE OF EXAM: 07/22/2023 COMPARISON: 08/17/2020 CLINICAL INDICATION: Female, 77 years old with history of R47.81 SLURRED SPEECH; HTN; Slurred speech x 1 week TECHNIQUE: Carotid duplex ultrasound examination. Indirect Doppler criteria was utilized. FINDINGS: EXAM MEASUREMENTS: RIGHT: Peak Systolic Velocity (PSV) cm/sec ----- Right CCA: 75 ----- Right ICA: 211 ----- Right ECA: 117 ICA/CCA ratio: 2.8 RIGHT: End Diastole cm/sec ----- Right CCA: 10 ----- Right ICA: 8 ----- Right ECA: 0 LEFT: Peak Systolic Velocity (PSV) cm/sec ----- Left CCA: 64 ----- Left ICA: 122 ----- Left ECA: 72 ICA/CCA ratio: 1.9 LEFT: End Diastole cm/sec ----- Left CCA: 12 ----- Left ICA: 33 ----- Left ECA: 10 VERTEBRALS (direction of flow): Right Vertebral: Antegrade Left Vertebral: Antegrade Rhythm: Normal APPRENTICE STYLIST NOTES: Extensive plaque bilaterally, increased right ICA velocities, no intimal thickenin g, and tortuous bilaterally IMPRESSION: 1. Marked atherosclerotic plaque in the right carotid bifurcation resulting in a moderate 50-69% righ t internal carotid artery stenosis. There has been significant interval worsening compared to the james or study. 2. Stable Scattered moderate atherosclerotic plaque in the left carotid bifurcation but no hemodynami rakan significant stenosis based on peak systolic velocities and ratios. Criteria for Assigning % of Stenosis / Diameter reduction (Estimation based on the indirect measurements of the internal carotid artery velocities (ICA PSV). 1. Normal (no stenosis)=ICA PSV < 125 cm/s: ratio < 2.0: ICA EDV<40 cm/s. 2. Less than 50% stenosis=ICA PSV < 125 cm/s: ratio < 2.0: ICA EDV<40 cm/s. 3. 50 to 69% stenosis=ICA PSV of 125 to 230 cm/s: ration 2.0 ? 4.0: ICA EDV 40-100 cm/s. 4. Greater than 70% stenosis to near occlusion= ICA PSV > 230 cm/s: ratio > 4.0: ICA EDV > 100 cm/s. 5. Near occlusion= ICA PSV velocities may be low or undetectable: variable ratio and ICA EDV. 6. Total occlusion=unable to detect flow.
== END | disposition home or self-care (01) ==
LOC: RADUSWWP 08:13
PROVIDERS: ATTEND Family Medicine
DX: I65.23 Occlusion and stenosis of bilateral carotid arteries (principal); R47.81 Slurred speech
CPT/HCPCS: 93880

== ENCOUNTER → 2023-07-25 | Outpatient (CLI) | payer MEDICARE ==
--- NOTE | 2023-07-26 04:47 | MR ---
EXAMINATION TYPE: MR brain wo/w con DATE OF EXAM: 07/25/2023 COMPARISON: Prior MRI brain August 18, 2020 HISTORY: Slurred speech TECHNIQUE: Multiplanar, multisequence images of the brain and brainstem is performed without and with IV contras t, utilizing 7.5 mL intravenous Gadavist . FINDINGS: Diffusion weighted images demonstrate no evidence of a recent infarct or other diffusion ab normality. There is mild to moderate ventricular and sulcal prominence redemonstrated. There are mul tifocal areas of T2 hyperintensity throughout the white matter bilaterally. Lesions are nonspecific i n appearance and distribution. Midline structures redemonstrate normal morphology. The craniocervical junction remaining within nor mal limits. Post contrast images demonstrate no abnormal enhancement. The dural venous sinuses appea r patent. The visualized sinuses are clear and the globes are intact. Nasal septum is deviated to rig ht of midline. IMPRESSION: 1. No MRI evidence for a recent infarct. 2. There is mild to moderate diffuse cerebral atrophy and moderate to advanced probable chronic small vessel ischemic change redemonstrated with some interval degenerative progression from 2020 MRI note d. No suspicious enhancement is seen.
== END | disposition home or self-care (01) ==
LOC: RADMRIMAIN 15:45
PROVIDERS: ATTEND Family Medicine
DX: G31.9 Degenerative disease of nervous system, unspecified (principal)
CPT/HCPCS: 70553; A9585

== ENCOUNTER → 2023-08-04 | Outpatient (CLI) | payer MEDICARE ==
[2023-08-04 12:02] LABS: African American GFR (CKD) 73 (>60 ml/min/1.73 sqM); Blood Urea Nitrogen 18 mg/dL (7-17); Non-African American GFR(CKD) 64 (>60 ml/min/1.73 sqM)
--- NOTE | 2023-08-04 13:13 | CT ---
EXAMINATION TYPE: CT angio neck DATE OF EXAM: 08/04/2023 1:00 PM CLINICAL INDICATION:Female, 77 years old with history of I65.29 OCCLUSION AND STENOSIS OF UNSPECIFIED CAROT; occlusion and stenosis of carotid artery COMPARISON: 02/23/2017 TECHNIQUE: Axially acquired helical CT Angiogram of the Neck was obtained with and without contrast. Axial images are supplemented with coronal and sagittal MIP reconstructions. 3D reconstructions were also performed and were post-processed at an independent workstation. Estimated carotid stenosis was calculated using the NASCET criteria. CT DLP: 321.50 mGycm, Automated exposure control for dose reduction was used. Contrast used:65 mL of Isovue 370 with IV Contrast, Oral contrast used: , None. FINDINGS: Diminutive right A1 segment. CTA NECK: Right Carotid System: The common carotid and external carotid arteries are patent. There is approximately 25% stenosis at t he carotid bifurcation secondary to calcified/noncalcified plaquing. The rest of the internal carotid artery is patent. Left Carotid System: The common carotid and external carotid arteries are patent. There is approximately 25% stenosis at t he carotid bifurcation secondary to calcified/noncalcified plaquing. The rest of the internal carotid artery is patent. Vertebral arteries are patent without evidence hemodynamically significant stenosis. Dominant left ve rtebral artery. There is a three-vessel aortic arch. The origins of the great vessels are patent. No evidence of hemo dynamically significant stenosis. Upper thorax: Mild to moderate centrilobular emphysema changes of the lungs. IMPRESSION: No evidence of dissection of the cervical internal carotid arteries or vertebral arteries or any evid ence of significant stenosis at the carotid bifurcations. Less than 25% stenosis of the carotid bifu rcations.
== END | disposition home or self-care (01) ==
LOC: RADCTMAIN 10:39
PROVIDERS: ATTEND Internal Medicine Interventional Cardiology
DX: I65.23 Occlusion and stenosis of bilateral carotid arteries (principal)
CPT/HCPCS: 82565; 84520; 70498; 36415; Q9967

== ENCOUNTER 2023-10-30 18:51 | Observation (INO) | payer MEDICARE ==
[2023-10-30 20:46] LABS: INR 0.9 (<1.2); Prothrombin Time 10.4 sec (10.0-12.5)
[2023-10-30 20:48] LABS: Basophils # (A) 0.1 k/uL (0-0.2); Basophils % (A) 1 %; Eosinophils # (A) 0.1 k/uL (0-0.7); Eosinophils % (A) 2 %; HCT 38.7 % (34.0-46.0); HGB 12.1 gm/dL (11.4-16.0); Hypochromasia Moderate; Lymphocytes # (A) 2.8 k/uL (1.0-4.8); Lymphocytes % (A) 38 %; MCH 26.1 pg (25.0-35.0); MCHC 31.3 g/dL (31.0-37.0); MCV 83.4 fL (80.0-100.0); Mean Platelet Volume 9.5; Monocytes # (A) 0.4 k/uL (0-1.0); Monocytes % (A) 6 %; Neutrophils # (A) 3.9 k/uL (1.3-7.7); Neutrophils % (A) 52 %; Platelet Count 241 k/uL (150-450); RBC 4.65 m/uL (3.80-5.40); RDW 14.7 % (11.5-15.5); WBC 7.4 k/uL (3.8-10.6)
[2023-10-30] MEDS: MECLIZINE 12.5 MG TAB PO STA (20:50)
[2023-10-30 20:53] LABS: ALT 11 U/L (4-34); AST 34 U/L (14-36); African American GFR (CKD) 87 (>60 ml/min/1.73 sqM); Albumin 4.2 g/dL (3.5-5.0); Alkaline Phosphatase 95 U/L (38-126); Anion Gap 6 mmol/L; Blood Urea Nitrogen 23 mg/dL (7-17); Calcium 9.8 mg/dL (8.4-10.2); Carbon Dioxide 24 mmol/L (22-30); Chloride 108 mmol/L (98-107); Glucose 86 mg/dL (74-99); Non-African American GFR(CKD) 75 (>60 ml/min/1.73 sqM); Sodium 138 mmol/L (137-145); Total Bilirubin 0.8 mg/dL (0.2-1.3); Total Protein 6.8 g/dL (6.3-8.2)
--- NOTE | 2023-10-30 20:53 | ED ---
General Adult HPI - General Source: patient, RN notes reviewed Mode of arrival: ambulatory Limitations: no limitations <Maral Arroyo - Last Filed: 10/30/23 23:26> <Antoinette Arenas - Last Filed: 10/31/23 01:04> - General Chief complaint: Dizziness Stated complaint: Dizziness Time Seen by Provider: 10/30/23 19:21 - History of Present Illness Initial comments: 77-year-old female presents to the emergency department for evaluation of being unsteady on her feet and unable to walk straight. She states that this started on Tuesday. She reports that she has no symptoms while she is lying in bed. She denies dizziness or lightheadedness. Denies recent illness, fever. She does admit to cough for the same time period. (Maral Arroyo) - Related Data Home Medications Medication Instructions Recorded Confirmed amLODIPine BESYLATE [Norvasc] 5 mg PO BID 10/14/15 03/15/23 Omeprazole 20 mg PO QAM 02/23/17 03/15/23 Atorvastatin [Lipitor] 40 mg PO HS 07/31/20 03/15/23 Ergocalciferol [Vitamin D2 (1250 1,250 mcg PO FR 08/17/20 03/15/23 Mcg = 69550 Iu)] Aspirin EC [Ecotrin Low Dose] 81 mg PO DAILY 01/25/21 03/10/23 Thiamine [Vitamin B-1] 100 mg PO DAILY 01/25/21 03/15/23 OLANZapine 5 mg PO HS 06/14/22 03/15/23 hydrALAZINE HCL [Apresoline] 25 mg PO TID 06/14/22 03/15/23 hydroCHLOROthiazide [Hydrodiuril] 25 mg PO QAM 06/14/22 03/15/23 clonazePAM [KlonoPIN] 0.5 mg PO QAM 03/10/23 03/15/23 Previous Rx's Medication Instructions Recorded Clopidogrel [Plavix] 75 mg PO DAILY #30 tab 02/24/17 HYDROcodone/APAP 7.5-325MG [[place] 1 - 2 tab PO Q6HR PRN #32 tab 03/17/23 7.5-325] Sennosides/Docusate Sodium [Senna 1 each PO DAILY #20 capsule 03/17/23 Plus 8.6-50 mg Softgel] Cephalexin [Keflex] 500 mg PO Q6HR #21 cap 04/10/23 Allergies Allergy/AdvReac Type Severity Reaction Status Date / Time zolpidem tartrate AdvReac Severe Hallucinati Verified 10/30/23 19:01 [From [facility]] ons Review of Systems ROS Other: All systems not noted in ROS Statement are negative. <Maral Arroyo - Last Filed: 10/30/23 23:26> ROS Other: All systems not noted in ROS Statement are negative. <Antoinette Arenas - Last Filed: 10/31/23 01:04> ROS Statement: Those systems with pertinent positive or pertinent negative responses have been documented in the HPI. Past Medical History Past Medical History: Coronary Artery Disease (CAD), Chest Pain / Angina, COPD, Hypertension, Syncope, Thyroid Disorder Additional Past Medical History / Comment(s): parathyroid nodules, high calcium Last Myocardial Infarction Date:: 12/2014 History of Any Multi-Drug Resistant Organisms: None Reported Past Surgical History: Heart Catheterization With Stent Additional Past Surgical History / Comment(s): cyst removed from back, heart cath with a stent placed 12/2014. parathyroid removal Past Anesthesia/Blood Transfusion Reactions: No Reported Reaction Date of Last Stent Placement:: 12/03/2014 Past Psychological History: Anxiety, Depression Smoking Status: Former smoker Past Alcohol Use History: Occasional, Rare Past Drug Use History: None Reported - Past Family History Father Family Medical History: No Reported History Additional Family Medical History / Comment(s): FATHER AT AGE 70. PT UNSURE WHAT EXACTLY HE FROM. Had arthritis and both legs amputated. Mother Family Medical History: Congestive Heart Failure (CHF) Additional Family Medical History / Comment(s): MOTHER AT AGE 91 YRS. Son(s) Family Medical History: Cancer Additional Family Medical History / Comment(s): Brain tumor, . Daughter(s) Family Medical History: Deep Vein Thrombosis (DVT) <Maral Arroyo - Last Filed: 10/30/23 23:26> General Exam Limitations: no limitations General appearance: alert, in no apparent distress Head exam: Present: atraumatic, normocephalic, normal inspection Eye exam: Present: normal appearance, PERRL, EOMI. Absent: scleral icterus, conjunctival injection, periorbital swelling ENT exam: Present: normal exam, mucous membranes moist Neck exam: Present: normal inspection. Absent: tenderness, meningismus, lymphadenopathy Respiratory exam: Present: normal lung sounds bilaterally. Absent: respiratory distress, wheezes, rales, rhonchi, stridor Cardiovascular Exam: Present: regular rate, normal rhythm, normal heart sounds. Absent: systolic murmur, diastolic murmur, rubs, gallop, clicks Extremities exam: Present: normal inspection, full ROM, normal capillary refill. Absent: tenderness, pedal edema, joint swelling, calf tenderness Back exam: Present: normal inspection Neurological exam: Present: alert, oriented X3, CN II-XII intact, abnormal gait Psychiatric exam: Present: normal affect, normal mood Skin exam: Present: warm, dry, intact, normal color. Absent: rash <Maral Arroyo - Last Filed: 10/30/23 23:26> Course Vital Signs 10/30/23 10/30/23 10/30/23 18:59 19:54 20:00 Temperature 98.5 F Pulse Rate 61 60 Respiratory 18 18 16 Rate Blood Pressure 133/61 150/64 O2 Sat by Pulse 95 97 97 Oximetry 10/30/23 10/30/23 10/31/23 21:00 22:44 00:00 Temperature Pulse Rate 62 61 59 L Respiratory 16 18 22 Rate Blood Pressure 155/86 143/75 164/72 O2 Sat by Pulse 97 96 95 Oximetry Medical Decision Making - Lab Data Result diagrams: 10/30/23 20:23 10/30/23 20:23 <Maral Arroyo - Last Filed: 10/30/23 23:26> - Lab Data Result diagrams: 10/30/23 20:23 10/30/23 20:23 <Antoinette Arenas - Last Filed: 10/31/23 01:04> - Medical Decision Making Was pt. sent in by a medical professional or institution (, PA, TELEHEALTH NURSE EDUCATOR, urgent care, hospital, or jail...) When possible be specific @ -No Did you speak to anyone other than the patient for history (EMS, parent, family, police, friend...)? What history was obtained from this source @ -No Did you review nursing and triage notes (agree or disagree)? Why? @ -I reviewed and agree with nursing and triage notes Were old charts reviewed (outside hosp., previous admission, EMS record, old EKG, old radiological studies, urgent care reports/EKG's, jail records)? Report findings @ -No old charts were reviewed Differential Diagnosis (chest pain, altered mental status, abdominal pain women, abdominal pain men, vaginal bleeding, weakness, fever, dyspnea, syncope, headache, dizziness, GI bleed, back pain, seizure, CVA, palpatations, mental health, musculoskeletal)? @ -Differential Dizziness: Benign paroxysmal positional Vertigo, Menieres disease, otitis media, acoustic neuroma, vertebrobasilar insufficiency, cerebellar stroke, encephalitis, hy povolemic, arrhythmia, coronary artery syndrome, anemia, this is not meant to be an all-inclusive list EKG interpreted by me (3pts min.). @ -EKG at 1904 shows irregular rhythm rate 68, DC 189, QRS 90, QTQTc [id number] X-rays interpreted by me (1pt min.). @ -Chest XR shows no acute process CT interpreted by me (1pt min.). @ -CT brain shows no acute process U/S interpreted by me (1pt. min.). @ -None done What testing was considered but not performed or refused? (CT, X-rays, U/S, labs)? Why? @ -None What meds were considered but not given or refused? Why? @ -None Did you discuss the management of the patient with other professionals (professionals i.e. , PA, TELEHEALTH NURSE EDUCATOR, lab, RT, psych nurse, social work associate, wardrobe manager, teacher, donor relations officer, lining caser)? Give summary @ -Case discussed with Daysi Boland who is accepting of the admission Was smoking cessation discussed for >3mins.? @ -No Was critical care preformed (if so, how long)? @ -No Were there social determinants of health that impacted care today? How? (Homelessness, low income, unemployed, alcoholism, drug addiction, transporta tion, low edu. Level, literacy, decrease access to med. care, [facility], rehab)? @ -No Was there de-escalation of care discussed even if they declined (Discuss DNR or withdrawal of care, Hospice)? DNR status @ -No What co-morbidities impacted this encounter? (DM, HTN, Smoking, COPD, CAD, Cancer, CVA, ARF, Chemo, Hep., AIDS, mental health diagnosis, sleep apnea, morbid obesity)? @ -None Was patient admitted / discharged? Hospital course, mention meds given and route, prescriptions, significant lab abnormalities, going to OR and other pertinent info. @ -Admitted. Patient presented to the emergency department for ataxia. Labs obtained CBC unremarkable, normal coagulation studies, negative troponin 0.017, BNP 469; UA shows 43 WBCs, moderate leukocyte esterase; negative for COVID, influenza, RSV. Chest x-ray shows no acute process. CT brain shows no acute process. Patient given meclizine in ED with some improvement in symptoms. Patient will be admitted with neurology consultation. Case discussed with Daysi Boland who is accepting of the admission. Patient stable at time of admission. Case discussed with Dr. Arenas Undiagnosed new problem with uncertain prognosis? @ -No Drug Therapy requiring intensive monitoring for toxicity (Heparin, Nitro, Insulin, Cardizem)? @ -No Were any procedures done? @ -No Diagnosis/symptom? @ -Ataxia Acute, or Chronic, or Acute on Chronic? @ -acute Uncomplicated (without systemic symptoms) or Complicated (systemic symptoms)? @ -uncomplicated Side effects of treatment? @ -No Exacerbation, Progression, or Severe Exacerbation? @ -No Poses a threat to life or bodily function? How? (Chest pain, [place], [place], pneumonia, PE, COPD, DKA, ARF, appy, cholecystitis, CVA, Diverticulitis, Homicidal, Suicidal, threat to staff... and all critical care pts) @ -No (Maral Arroyo) - Lab Data Lab Results 10/30/23 10/30/23 10/30/23 Range/Units 20:23 20:23 20:23 WBC 7.4 (3.8-10.6) k/uL RBC 4.65 (3.80-5.40) m/uL Hgb 12.1 (11.4-16.0) gm/dL Hct 38.7 (34.0-46.0) % MCV 83.4 (80.0-100.0) fL MCH 26.1 (25.0-35.0) pg MCHC 31.3 (31.0-37.0) g/dL RDW 14.7 (11.5-15.5) % Plt Count 241 (150-450) k/uL MPV 9.5 Neutrophils % 52 % Lymphocytes % 38 % Monocytes % 6 % Eosinophils % 2 % Basophils % 1 % Neutrophils # 3.9 (1.3-7.7) k/uL Lymphocytes # 2.8 (1.0-4.8) k/uL Monocytes # 0.4 (0-1.0) k/uL Eosinophils # 0.1 (0-0.7) k/uL Basophils # 0.1 (0-0.2) k/uL Hypochromasia Moderate PT 10.4 (10.0-12.5) sec INR 0.9 (<1.2) Sodium 138 (137-145) mmol/L Potassium 5.3 H (3.5-5.1) mmol/L Chloride 108 H (98-107) mmol/L Carbon Dioxide 24 (22-30) mmol/L Anion Gap 6 mmol/L BUN 23 H (7-17) mg/dL Creatinine 0.76 (0.52-1.04) mg/dL Est GFR (CKD-EPI)AfAm 87 (>60 ml/min/1.73 sqM) Est GFR (CKD-EPI)NonAf 75 (>60 ml/min/1.73 sqM) Glucose 86 (74-99) mg/dL Calcium 9.8 (8.4-10.2) mg/dL Total Bilirubin 0.8 (0.2-1.3) mg/dL AST 34 (14-36) U/L ALT 11 (4-34) U/L Alkaline Phosphatase 95 (38-126) U/L Troponin I (0.000-0.034) ng/mL NT-Pro-B Natriuret Pep 469 pg/mL Total Protein 6.8 (6.3-8.2) g/dL Albumin 4.2 (3.5-5.0) g/dL Urine Color Urine Appearance (Clear) Urine pH (5.0-8.0) Ur Specific [place] (1.001-1.035) Urine Protein (Negative) Urine Glucose (UA) (Negative) Urine Ketones (Negative) Urine Blood (Negative) Urine Nitrite (Negative) Urine Bilirubin (Negative) Urine Urobilinogen (<2.0) mg/dL Ur Leukocyte Esterase (Negative) Urine RBC (0-5) /hpf Urine WBC (0-5) /hpf Urine WBC Clumps (None) /hpf Ur Squamous Epith Cells (0-4) /hpf Urine Bacteria (None) /hpf Urine Mucus (None) /hpf Influenza Type A (PCR) (Not Detectd) Influenza Type B (PCR) (Not Detectd) RSV (PCR) (Not Detectd) SARS-CoV-2 (PCR) (Not Detectd) 10/30/23 10/30/23 10/30/23 Range/Units 20:23 20:25 20:52 WBC (3.8-10.6) k/uL RBC (3.80-5.40) m/uL Hgb (11.4-16.0) gm/dL Hct (34.0-46.0) % MCV (80.0-100.0) fL MCH (25.0-35.0) pg MCHC (31.0-37.0) g/dL RDW (11.5-15.5) % Plt Count (150-450) k/uL MPV Neutrophils % % Lymphocytes % % Monocytes % % Eosinophils % % Basophils % % Neutrophils # (1.3-7.7) k/uL Lymphocytes # (1.0-4.8) k/uL Monocytes # (0-1.0) k/uL Eosinophils # (0-0.7) k/uL Basophils # (0-0.2) k/uL Hypochromasia PT (10.0-12.5) sec INR (<1.2) Sodium (137-145) mmol/L Potassium (3.5-5.1) mmol/L Chloride (98-107) mmol/L Carbon Dioxide (22-30) mmol/L Anion Gap mmol/L BUN (7-17) mg/dL Creatinine (0.52-1.04) mg/dL Est GFR (CKD-EPI)AfAm (>60 ml/min/1.73 sqM) Est GFR (CKD-EPI)NonAf (>60 ml/min/1.73 sqM) Glucose (74-99) mg/dL Calcium (8.4-10.2) mg/dL Total Bilirubin (0.2-1.3) mg/dL AST (14-36) U/L ALT (4-34) U/L Alkaline Phosphatase (38-126) U/L Troponin I 0.017 (0.000-0.034) ng/mL NT-Pro-B Natriuret Pep pg/mL Total Protein (6.3-8.2) g/dL Albumin (3.5-5.0) g/dL Urine Color Yellow Urine Appearance Clear (Clear) Urine pH 5.5 (5.0-8.0) Ur Specific [place] 1.028 (1.001-1.035) Urine Protein Trace H (Negative) Urine Glucose (UA) Negative (Negative) Urine Ketones Negative (Negative) Urine Blood Negative (Negative) Urine Nitrite Negative (Negative) Urine Bilirubin Negative (Negative) Urine Urobilinogen 2.0 (<2.0) mg/dL Ur Leukocyte Esterase Moderate H (Negative) Urine RBC 2 (0-5) /hpf Urine WBC 43 H (0-5) /hpf Urine WBC Clumps Rare H (None) /hpf Ur Squamous Epith Cells 1 (0-4) /hpf Urine Bacteria Rare H (None) /hpf Urine Mucus Moderate H (None) /hpf Influenza Type A (PCR) Not Detected (Not Detectd) Influenza Type B (PCR) Not Detected (Not Detectd) RSV (PCR) Not Detected (Not Detectd) SARS-CoV-2 (PCR) Not Detected (Not Detectd) Disposition Is patient prescribed a controlled substance at d/c from ED?: No <Maral Arroyo - Last Filed: 10/30/23 23:26> <Antoinette Arenas - Last Filed: 10/31/23 01:04> Clinical Impression: Ataxia Disposition: ADMITTED IP TO THIS HOSP Condition: Stable
[2023-10-30 21:02] LABS: NT-Pro-B-Type Natriuretic Pept 469 pg/mL
[2023-10-30 21:06] LABS: Potassium 5.3 mmol/L (3.5-5.1)
[2023-10-30 21:17] LABS: Appearance,Urine Clear (Clear); Bacteria,Urine Rare /hpf; Bilirubin,Urine Negative (Negative); Blood,Urine Negative (Negative); Color,Urine Yellow; Glucose,Urine (UA) Negative (Negative); Ketones,Urine Negative (Negative); Leukocyte Esterase,Urine Moderate (Negative); Mucus,Urine Moderate /hpf; Nitrite,Urine Negative (Negative); PH, Urine 5.5 (5.0-8.0); Protein,Urine Trace (Negative); RBC,Urine 2 /hpf (0-5); Specific Gravity,Urine 1.028 (1.001-1.035); Squamous Epithelial Cell,Urine 1 /hpf (0-4); WBC,Urine 43 /hpf (0-5)
--- NOTE | 2023-10-30 21:22 | CT ---
EXAMINATION TYPE: CT brain wo con CT DLP: 1166.4 mGycm, Automated exposure control for dose reduction was used. DATE OF EXAM: 10/30/2023 9:11 PM COMPARISON: . CLINICAL INDICATION:Female, 77 years old with history of dizziness, Patient states that she feels lik e she is going to fall when walking. TECHNIQUE: Brain: Axial CT images of the brain were obtained with coronal and sagittal reformats created and rev iewed. Contrast used: None. Oral contrast used: None. FINDINGS: Brain: Extra-axial spaces: No abnormal extra-axial fluid collections. Extra-axial CSF spaces are increased . Ventricular system: Ventricles and sulci are prominent indicating involutional change. The process is asymmetric involving frontal lobes greater than parietal lobes. Cerebral parenchyma: No acute intraparenchymal hemorrhage or mass effect. The rosen-white junction is well differentiated. Cerebellum: Unremarkable. Mass effect: No evidence of midline shift. Intracranial vasculature: unremarkable Soft tissues: Normal. Calvarium/osseous structures: No depressed skull fracture. Paranasal sinuses and mastoid air cells: Mild scattered paranasal sinus disease. Visualized orbits: Orbital contents are intact. IMPRESSION: No acute intracranial process. Frontal lobes asymmetrically involuted.
--- NOTE | 2023-10-30 21:54 | XR ---
EXAMINATION TYPE: XR chest 2V DATE OF EXAM: 10/30/2023 9:18 PM CLINICAL INDICATION:Female, 77 years old with history of cough; [facility] COMPARISON: Chest radiographs from 04/09/2023 and 01/25/2021 TECHNIQUE: XR chest 2V Frontal and lateral views of the chest. FINDINGS: Lungs/Pleura: There is no evidence of pleural effusion, focal consolidation, or pneumothorax. Calcif ied granuloma in the right base is stable since prior exam of 01/25/2021. Pulmonary vascularity: Unremarkable. Heart/mediastinum: Cardiomediastinal silhouette is unremarkable. Musculoskeletal: No acute osseous pathology. Other findings: None Lines/Tubes: IMPRESSION: No acute cardiopulmonary disease/process.
[2023-10-30] MEDS ORDERED: ACETAMINOPHEN TAB 325 MG TAB PO PRN (23:23)
[2023-10-30] MEDS ORDERED: NALOXONE 0.4 MG/ML 1 ML VIAL IV PRN (23:23)
[2023-10-30] MEDS ORDERED: KETOROLAC 15 MG/ML 1 ML VIAL IVP PRN (23:23)
[2023-10-30] MEDS ORDERED: MORPHINE SULFATE 4 MG/ML SYRINGE IV PRN (23:23)
[2023-10-30] MEDS: CEPHALEXIN 500 MG CAP PO STA (23:39)
[2023-10-31] MEDS: ASPIRIN 81 MG PO SCH (13:43)
[2023-10-31] MEDS: CLOPIDOGREL 75 MG TAB PO SCH (13:43)
--- NOTE | 2023-10-31 14:27 | P.CNNES ---
History of Present Illness Consult date: 10/31/23 Requesting physician: Maral Arroyo Reason for Consult: ataxia History of Present Illness: This is a 77-year-old woman present emergency department because for the past couple days she felt she was off balance. Patient denies any dizziness but she just felt off balance but denies any focal weakness numbness. She denies any back pain. Denies any speech difficulty vision issues that is new. Denies any urinary or bowel issues. She denies any recent sick contacts. Denies any ringing in the ears or any new hearing issues. She states that she has history of TIA in 2016 and she is on aspirin 81 mg. She also has a history of coronary artery disease status post stent and is also on Plavix. She has bilateral hip r eplacement. She feels she is doing better today. Yesterday it seems that she was notified she has possibly urinary tract infection in which she was started on antibiotic as well as was given meclizine and today she is feeling drastically better. Patient also states towards the end that as she has been coughing recently. She denies any fever. Denies any numbness that is new or that extending up or down. Some of the work-up during this hospital visit consisted of: Intervals unremarkable Potassium is 5.3 and there is slight hemolysis Urine Analysis is a leukocyte Estrace is moderate, urine white blood cell is 43, urine bacteria is rare CT of the head is reported as no acute intracranial process. Frontal lobe asymmetrical involuted. I personally reviewed the CT and there is no acute or subacute process. I personally do not feel there is any difference in the CT compared to the prior CTs even going back to . Patient does have bilateral frontal atrophy but again I felt that she had this in the past. Of Note, patient had MRI of the brain most recent in 07/26/2023 and it is reported no MRI evidence for recent infarct. There is mild to moderate cerebral atrophy and moderate to advanced probable chronic small vessel ischemic changes redemonstrated with some interval degenerative progression from 2020. No suspicious enhancement is seen. Review of Systems The positive and negative as per HPI. Past Medical History Past Medical History: Coronary Artery Disease (CAD), Chest Pain / Angina, COPD, Hypertension, Syncope, Thyroid Disorder Additional Past Medical History / Comment(s): parathyroid nodules, high calcium Last Myocardial Infarction Date:: 12/2014 History of Any Multi-Drug Resistant Organisms: None Reported Past Surgical History: Heart Catheterization With Stent Additional Past Surgical History / Comment(s): cyst removed from back, heart cath with a stent placed 12/2014. parathyroid removal Past Anesthesia/Blood Transfusion Reactions: No Reported Reaction Date of Last Stent Placement:: 12/03/2014 Past Psychological History: Anxiety, Depression Smoking Status: Former smoker Past Alcohol Use History: Occasional, Rare Past Drug Use History: None Reported - Past Family History Father Family Medical History: No Reported History Additional Family Medical History / Comment(s): FATHER AT AGE 70. PT UNSURE WHAT EXACTLY HE FROM. Had arthritis and both legs amputated. Mother Family Medical History: Congestive Heart Failure (CHF) Additional Family Medical History / Comment(s): MOTHER AT AGE 91 YRS. Son(s) Family Medical History: Cancer Additional Family Medical History / Comment(s): Brain tumor, . Daughter(s) Family Medical History: Deep Vein Thrombosis (DVT) Medications and Allergies Home Medications Medication Instructions Recorded Confirmed Type Omeprazole 20 mg PO DAILY 02/23/17 10/31/23 History Clopidogrel [Plavix] 75 mg PO DAILY #30 tab 02/24/17 10/31/23 Rx Atorvastatin [Lipitor] 40 mg PO HS 07/31/20 10/31/23 History Ergocalciferol [Vitamin D2 (1250 1,250 mcg PO FR 08/17/20 10/31/23 History Mcg = 45097 Iu)] Aspirin EC [Ecotrin Low Dose] 81 mg PO DAILY 01/25/21 10/31/23 History OLANZapine 5 mg PO HS 06/14/22 10/31/23 History hydrALAZINE HCL [Apresoline] 25 mg PO TID 06/14/22 10/31/23 History hydroCHLOROthiazide [Hydrodiuril] 25 mg PO DAILY 06/14/22 10/31/23 History Citalopram Hydrobromide 20 mg PO DAILY 10/31/23 10/31/23 History [Citalopram HBr] amLODIPine [Norvasc] 5 mg PO BID 10/31/23 10/31/23 History Allergies Allergy/AdvReac Type Severity Reaction Status Date / Time zolpidem tartrate AdvReac Severe Hallucinati Verified 10/31/23 07:27 [From [facility]] ons Physical Examination - Vital Signs Vital Signs: Vital Signs Temp Pulse Resp BP Pulse Ox 10/31/23 12:58 59 L 18 149/64 96 10/31/23 07:28 97.5 F L 68 18 164/60 97 10/31/23 06:00 55 L 18 114/79 94 L 10/31/23 05:00 60 19 138/71 94 L 10/31/23 04:00 57 L 14 154/73 10/31/23 03:00 58 L 22 135/98 10/31/23 02:00 51 L 18 162/83 95 10/31/23 01:00 52 L 16 154/62 10/31/23 00:00 59 L 22 164/72 95 10/30/23 22:44 61 18 143/75 96 10/30/23 21:00 62 16 155/86 97 10/30/23 20:00 60 16 150/64 97 10/30/23 19:54 18 97 10/30/23 18:59 98.5 F 61 18 133/61 95 Intake and Output 10/30/23 10/31/23 10/31/23 22:59 06:59 14:59 Other: Weight 74.843 kg GENERAL: The patient is lying in bed and is not in acute distress. NEUROLOGICAL: Higher mental function: The patient is awake, alert, oriented to self, place and time. Patient is following commands. No aphasia and no neglect. Cranial nerves: The pupils are round, equal and reactive to light and ac commodation. Visual massey are full to confrontation throughout. Extraocular movement is intact no nystagmus is noted. Facial sensation is normal to touch throughout. The facial strength is normal throughout. Hearing is normal bilaterally to hand rub. Tongue is midline and moved [id number] without any difficulty. No dysarthria is noted. Shoulder shrug is normal bilaterally. Motor:Gait is normal. The strength is 5 over 5 throughout. Normal tone and bulk. Cerebellum: Normal finger to nose heel to chin bilaterally. Sensation: Sensation is normal to touch throughout. Reflexes (right/left):Left knee is 0 and bilateral ankles are 1+. Otherwise 2+ throughout. Plantars are downgoing bilaterally. Results - Laboratory Findings CBC and BMP: 10/30/23 20:23 10/30/23 20:23 Abnormal Lab Findings: Abnormal Labs 10/30/23 10/30/23 10/31/23 20:23 20:52 13:18 Potassium 5.3 H Chloride 108 H BUN 23 H C-Reactive Protein 1.2 H Urine Protein Trace H Ur Leukocyte Esterase Moderate H Urine WBC 43 H Urine WBC Clumps Rare H Urine Bacteria Rare H Urine Mucus Moderate H Assessment and Plan Assessment: This is a 77-year-old woman presents to the emergency department because she felt she is off balance for the past few days. Seems that she has acute urinary tract infection. She felt drastically better with antibiotic and meclizine. She feels her gait is normal and there is no balance issues. Acute unsteady gait possibly acute urinary tract infection possible due to acute respiratory tract infection since has recent cough. Examination there is no focal deficit and patient is back to baseline. Had multiple MRI of the brain and the most recent was on 07/26/2023 and there is no acute or subacute stroke and there is no enhancement. Likely acute urinary tract infection n History of TIA in 2016 Underlying history of coronary artery disease status post stent Hypertension History of bilateral hip replacement Plan: I will not repeat MRI of the brain since the patient had a recent 1 on 07/26/2023 which is unremarkable for acute or subacute stroke or any enha ncement. She feels back to baseline. If patient does have any new neurological deficit then I will pursue MRI The echo and carotid duplex is ordered by the primary team is pending Orthostatic vitals is also ordered and is pending I recommend the patient to follow-up with a neurologist as an outpatient within 2 to 3 weeks. Will reassess the patient status tomorrow. Otherwise no additional neurological workup at this time. Thank you for the consultation Time with Patient: Greater than 30
--- NOTE | 2023-10-31 14:29 | HP ---
HISTORY AND PHYSICAL CHIEF COMPLAINT: Dizziness and ataxia. HISTORY OF PRESENT ILLNESS: This is a 77-year-old woman with a past medical history of multiple medical problems including CAD, COPD, hypertension, was complaining of unsteadiness in feet since Tuesday. The patient also has some hacking cough and the patient came to [facility] today and admitted for further evaluation and treatment. Initial evaluation including a CAT scan is negative. MRI has been ordered. Neurology evaluation has been sought. The patient also had a CAD stent. EKG showed nonspecific ST-T changes. There is no history of any fever, rigors, or chills at this time. Initial viral testing is negative. The patient has evidence of UTI. There is no history of dysuria. PAST MEDICAL HISTORY: Reviewed, rest of medications and chart is also reviewed. HOME MEDICATIONS: Reviewed include HydroDIURIL, dose and rest of medications reviewed. ALLERGIES: Ambien. FAMILY HISTORY: History of DJD. SOCIAL HISTORY: Previous history of smoking, occasional alcohol. REVIEW OF SYSTEMS: A 14-point review is negative except as mentioned earlier. PHYSICAL EXAMINATION: VITAL SIGNS: Pulse is 68, blood pressure 164/60, and respirations 18. HEENT: Conjunctivae normal. NECK: No jugular venous distention. CARDIAC: S1, S2. RESPIRATIONS: Diminished at the bases, scattered rhonchi. No crackles. ABDOMEN: Soft, nontender. LEGS: No edema, no swelling. NERVOUS SYSTEM: Diffusely weak, otherwise no sensory or cerebral incoordination. GAIT: Not assessed. LABORATORY DATA: Potassium 5.2, rest of the labs are noted. ASSESSMENT: 1. Ataxia, dizziness and weakness for evaluation, rule out acute TIA. 2. Rule out acute UTI. 3. Hyperkalemia, mild. 4. Coronary artery disease stent history. 5. Cough, possible acute bronchitis. 6. Chronic obstructive pulmonary disease. 7. Hypertension. 8. Bilateral nodule history. 9. Multiple complex medical issues. RECOMMENDATIONS AND DISCUSSION: This 77-year-old woman presented with multiple complex medical issues, we will monitor the patient closely. Continue the current medications, continue symptomatic management. We will obtain the neurology evaluation including MRI scan. Otherwise, I would also recommend blood testing including serum procalcitonin. See orders for details. Prognosis guarded. Discussed with family at length. Further recommendations to follow. A 2D echo also will be ordered to complete the workup. MMODL / IJN: [id number] /
--- NOTE | 2023-10-31 15:00 | US ---
EXAMINATION TYPE: US carotid duplex BILAT DATE OF EXAM: 10/31/2023 COMPARISON: US 2023 CLINICAL INDICATION: Female, 77 years old with history of weak, dizzy; TECHNIQUE: Carotid duplex ultrasound examination. Indirect Doppler criteria was utilized. FINDINGS: EXAM MEASUREMENTS: RIGHT: Peak Systolic Velocity (PSV) cm/sec ----- Right CCA: 56.1 ----- Right ICA: 85.4 ----- Right ECA: 90.5 ICA/CCA ratio: 1.5 RIGHT: End Diastole cm/sec ----- Right CCA: 10.1 ----- Right ICA: 19.7 ----- Right ECA: 13.1 LEFT: Peak Systolic Velocity (PSV) cm/sec ----- Left CCA: 78.6 ----- Left ICA: 123.0 ----- Left ECA: 72.9 ICA/CCA ratio: 1.6 LEFT: End Diastole cm/sec ----- Left CCA: 19.5 ----- Left ICA: 35.9 ----- Left ECA: 1.1 VERTEBRALS (direction of flow): Right Vertebral: Antegrade Left Vertebral: Antegrade Rhythm: Arrhythmia No significant stenois IMPRESSION: No evidence for hemodynamically significant stenosis. Criteria for Assigning % of Stenosis / Diameter reduction (Estimation based on the indirect measurements of the internal carotid artery velocities (ICA PSV). 1. Normal (no stenosis)=ICA PSV < 125 cm/s: ratio < 2.0: ICA EDV<40 cm/s. 2. Less than 50% stenosis=ICA PSV < 125 cm/s: ratio < 2.0: ICA EDV<40 cm/s. 3. 50 to 69% stenosis=ICA PSV of 125 to 230 cm/s: ration 2.0 ? 4.0: ICA EDV 40-100 cm/s. 4. Greater than 70% stenosis to near occlusion= ICA PSV > 230 cm/s: ratio > 4.0: ICA EDV > 100 cm/s. 5. Near occlusion= ICA PSV velocities may be low or undetectable: variable ratio and ICA EDV. 6. Total occlusion=unable to detect flow.
[2023-10-31] MEDS: hydrALAZINE HCL 25 MG TAB PO SCH (16:52)
[2023-10-31 19:24] LABS: Amphetamine Screen,Urine Not Detected (NotDetected); Barbiturate Screen,Urine Not Detected (NotDetected); Benzodiazepines Screen,Urine Detected (NotDetected); Cocaine Screen,Urine Not Detected (NotDetected); Methadone Screen, Urine Not Detected (NotDetected); Opiate Screen,Urine Not Detected (NotDetected); Oxycodone Screen, Urine Not Detected (NotDetected); Phencyclidine Screen,Urine Not Detected (NotDetected); Tricyclic Antidepressant,Urine Not Detected (NotDetected); Urn Cannabinoid Scrn Not Detected (NotDetected)
[2023-10-31] MEDS: ATORVASTATIN 40 MG TAB PO SCH (20:24)
[2023-11-01 07:14] VITALS: BP 162/67; RESP 18; TEMP 98
[2023-11-01 07:18] LABS: Basophils # (A) 0.1 k/uL (0-0.2); Basophils % (A) 1 %; Eosinophils # (A) 0.2 k/uL (0-0.7); Eosinophils % (A) 2 %; HGB 11.6 gm/dL (11.4-16.0); Hypochromasia Marked; Lymphocytes # (A) 2.4 k/uL (1.0-4.8); Lymphocytes % (A) 28 %; MCH 26.1 pg (25.0-35.0); MCHC 31.2 g/dL (31.0-37.0); MCV 83.5 fL (80.0-100.0); Mean Platelet Volume 8.8; Monocytes # (A) 0.4 k/uL (0-1.0); Monocytes % (A) 5 %; Neutrophils # (A) 5.5 k/uL (1.3-7.7); Neutrophils % (A) 63 %; Platelet Count 247 k/uL (150-450); RBC 4.43 m/uL (3.80-5.40); RDW 14.6 % (11.5-15.5); WBC 8.8 k/uL (3.8-10.6)
[2023-11-01 08:24] LABS: ALT 10 U/L (4-34); AST 18 U/L (14-36); African American GFR (CKD) 90 (>60 ml/min/1.73 sqM); Albumin 3.6 g/dL (3.5-5.0); Alkaline Phosphatase 119 U/L (38-126); Anion Gap 4 mmol/L; Blood Urea Nitrogen 15 mg/dL (7-17); Calcium 9.6 mg/dL (8.4-10.2); Carbon Dioxide 27 mmol/L (22-30); Chloride 108 mmol/L (98-107); Glucose 89 mg/dL (74-99); Non-African American GFR(CKD) 78 (>60 ml/min/1.73 sqM); Potassium 4.2 mmol/L (3.5-5.1); Sodium 139 mmol/L (137-145); Total Bilirubin 0.4 mg/dL (0.2-1.3); Total Protein 5.7 g/dL (6.3-8.2)
[2023-11-01] MEDS: hydroCHLOROthiazide 25 MG TAB PO SCH (09:35)
[2023-11-01] MEDS: PANTOPRAZOLE 40 MG TABLET PO SCH (09:35)
[2023-11-01 10:33] VITALS: PULSE 73
--- NOTE | 2023-11-01 13:12 | P.PN ---
Subjective Progress Note Date: 11/01/23 I am following-up with patient and she states she continues to be doing well. No further unsteady gait. Per the nurse she was walking normal with no issues. Denies of any new neurological issues. Objective - Vital Signs Vital signs: Vital Signs Temp 98.0 F 11/01/23 07:00 Pulse 73 11/01/23 08:00 Resp 18 11/01/23 08:00 BP 162/67 11/01/23 07:00 Pulse Ox 91 L 11/01/23 07:00 FiO2 Intake & Output 10/31/23 11/01/23 11/01/23 18:59 06:59 18:59 Weight 74.843 kg Other: Voiding Method Toilet Toilet # Voids 2 - Exam GENERAL: The patient is lying in bed and is not in acute distress. NEUROLOGICAL: Higher mental function: The patient is awake, alert, oriented to self, place and time. Patient is following commands. No aphasia and no neglect. Cranial nerves: The pupils are round, equal and reactive to light and accommodation. Visual massey are full to confrontation throughout. Extraocular movement is intact no nystagmus is noted. Facial sensation is normal to touch throughout. The facial strength is normal throughout. Hearing is normal marina aterally to hand rub. Tongue is midline and moved [id number] without any difficulty. No dysarthria is noted. Shoulder shrug is normal bilaterally. Motor:Gait is normal. The strength is 5 over 5 throughout. Normal tone and bulk. Cerebellum: Normal finger to nose heel to chin bilaterally. Sensation: Sensation is normal to touch throughout. Reflexes (right/left):Left knee is 0 and bilateral ankles are 1+. Otherwise 2+ throughout. Plantars are downgoing bilaterally. Some of the work-up during this hospital visit consisted of: Intervals unremarkable Potassium is 5.3 and there is slight hemolysis Urine Analysis is a leukocyte Estrace is moderate, urine white blood cell is 43, urine bacteria is rare CT of the head is reported as no acute intracranial process. Frontal lobe asymmetrical involuted. I personally reviewed the CT and there is no acute or subacute process. I personally do not feel there is any difference in the CT compared to the prior CTs even going back to 2015/2016. Patient does have bilateral frontal atrophy but again I felt that she had this in the past. Carotid duplex: No evidence for hemodynamically significant stenosis. Of Note, patient had MRI of the brain most recent in 07/26/2023 and it is reported no MRI evidence for recent infarct. There is mild to moderate cerebral atrophy and moderate to advanced probable chronic small vessel ischemic changes redemonstrated with some interval degenerative progression from 2020. No suspicious enhancement is seen. - Labs CBC & Chem 7: 11/01/23 06:17 11/01/23 06:17 Labs: Abnormal Lab Results - Last 24 Hours (Table) 10/31/23 10/31/23 11/01/23 Range/Units 13:18 18:48 06:17 Chloride 108 H (98-107) mmol/L C-Reactive Protein 1.2 H (<1.0) mg/dL Total Protein 5.7 L (6.3-8.2) g/dL U Benzodiazepines Scrn Detected H (NotDetected) Microbiology - Last 24 Hours (Table) 10/30/23 20:52 Urine Culture - Final Urine,Voided Assessment and Plan Assessment: This is a 77-year-old woman presents to the emergency department because she felt she is off balance for the past few days. Seems that she has acute urinary tract infection. She felt drastically better with antibiotic and meclizine. She feels her gait is normal and there is no balance issues. Acute unsteady gait possibly acute urinary tract infection possible due to acute respiratory tract infection since has recent cough. Also patient has positive orthostatic vitals which can contribute to her symptoms. Examination there is no focal deficit and patient is back to baseline. Had multiple MRI of the brain and the most recent was on 07/26/2023 and there is no acute or subacute stroke and there is no enhancement. Positive orthostatic hypotension Likely acute urinary tract infection n History of TIA in 2016 Underlying history of coronary artery disease status post stent Hypertension History of bilateral hip replacement Plan: I will not repeat MRI of the brain since the patient had a recent 1 on 07/26/2023 which is unremarkable for acute or subacute stroke or any enhancement. She feels back to baseline and continue to be doing well. For positive orthostatic hypotension will defer management to her primary team. If patient does have any new neurological deficit then I will pursue MRI 2D echo is ordered by primary team. I recommend the patient to follow-up with a neurologist as an outpatient within 2 to 3 weeks. She stated she followed-up with Dr. Carmona's P.A. once and did not feels things were addressed per patient. She can follow-up with different neurologist as outpatient as second opinion. The plan is discussed with patient and her nurse. There is no further neurological work-up. Will sign off. Please reconsult if needed. Time with Patient: Less than 30
--- NOTE | 2023-11-01 14:11 | DS ---
DISCHARGE SUMMARY FINAL DIAGNOSES: 1. Ataxia, dizziness, weakness, TIA ruled out. 2. Acute UTI ruled out. 3. Hyperkalemia. 4. Possible acute purulent tracheobronchitis. 5. Chronic obstructive pulmonary disease. 6. Hypertension. Please note, the patient does not have UTI and urine cultures negative. DISCHARGE DISPOSITION: The patient will be discharged in stable condition, guarded prognosis. HISTORY OF PRESENT ILLNESS: This is a 77-year-old woman with a past medical history of multiple medical problems, admitted with multiple symptomatology. The patient's cultures are negative. The patient was given antibiotics for possible tracheobronchitis. Patient improved significantly. PHYSICAL EXAMINATION: CARDIOVASCULAR: S1, S2. RESPIRATIONS: Few scattered rhonchi. DISCHARGE MEDICATIONS: Resume the home medications and short course of antibiotics, Ceftin 500 b.i.d. for 3 days for tracheobronchitis and continue rest of medications. Follow with Dr. Blanton. TERRY / TITO: [id number] /
--- NOTE | 2023-11-01 15:31 | CA ---
Transthoracic Echo Report Name: Julia Martinez Age: 77 Gender: F : 1945 Exam Date: 11/01/2023 07:39 Exam Location: [facility] Ht (in): 63 Wt (lb): 165 Ordering Physician: Len Self MD Attending/Referring Phys: Metal [employer]er Rohini Guerra RDCS Procedure CPT: Indications: chf Cardiac Hx: Technical Quality: Fair Contrast 1: Total Dose (mL): Contrast 2: Total Dose (mL): MEASUREMENTS (Male / Female) Normal Values 2D ECHO LV Diastolic Diameter PLAX 5.2 cm 4.2 - 5.9 / 3.9 - 5.3 cm LV Systolic Diameter PLAX 3.7 cm IVS Diastolic Thickness 1.3 cm 0.6 - 1.0 / 0.6 - 0.9 cm LVPW Diastolic Thickness 1.2 cm 0.6 - 1.0 / 0.6 - 0.9 cm LV Relative Wall Thickness 0.5 RV Internal Dim ED PLAX 3.5 cm LA Systolic Diameter LX 3.9 cm 3.0 - 4.0 / 2.7 - 3.8 cm LV Diastolic Volume MOD 4C 117.3 cm??? LV Systolic Volume MOD 4C 51.6 cm??? LV Ejection Fraction MOD 4C 56.0 % LV Cardiac Index MOD 4C 1885.5 cm???/min???m??? LV Diastolic Length 4C 8.3 cm LV Systolic Length 4C 6.4 cm LV Diastolic Volume MOD 2C 78.0 cm??? LV Systolic Volume MOD 2C 38.3 cm??? LV Ejection Fraction MOD 2C 50.9 % LV Cardiac Index MOD 2C 1139.7 cm???/min???m??? LV Diastolic Length 2C 8.0 cm LV Systolic Length 2C 6.0 cm LA Volume 71.1 cm??? 18 - 58 / 22 - 52 cm??? LA Volume Index 38.5 cm???/m??? 16 - 28 cm???/m??? M-MODE Aortic Root Diameter MM 3.1 cm AV Cusp Separation MM 1.8 cm DOPPLER AV Peak Velocity 158.2 cm/s AV Peak Gradient 10.0 mmHg AI Peak Velocity 333.6 cm/s AI Peak Gradient 44.5 mmHg AI Pressure Half Time 1203.8 ms MV Area PHT 2.1 cm??? Mitral E Point Velocity 66.9 cm/s Mitral A Point Velocity 114.9 cm/s Mitral E to A Ratio 0.6 MV Deceleration Time 357.5 ms TR Peak Velocity 315.5 cm/s TR Peak Gradient 39.8 mmHg Right Ventricular Systolic Press 44.8 mmHg FINDINGS Left Ventricle Left ventricular ejection fraction is estimated at 55-60 %. Left ventricular cavity size normal. Mildly increased septal wall thickness. Mildly increased posterior wall thickness. Right Ventricle Mild right ventricular dilatation. Moderate pulmonary hypertension. Right ventricular systolic pressure estimated at 45 mm hg. Right Atrium Normal right atrial size. No right atrial thrombus or mass seen. Left Atrium Moderately increased left atrial volume. Mildly increased left atrial area. No left atrial thrombus or mass present. Mitral Valve Structurally normal mitral valve. Mitral annular calcification. Trace mitral regurgitation. Aortic Valve Trileaflet aortic valve. Aortic valve sclerosis. Trace to mild aortic regurgitation. Tricuspid Valve Structurally normal tricuspid valve. Mild tricuspid regurgitation. Pulmonic Valve Pulmonic valve not well visualized. Trace pulmonic regurgitation. Pericardium No pericardial effusion. No pleural effusion. Aorta Normal size aortic root and proximal ascending aorta. CONCLUSIONS Diagnosis Dizziness presyncope and congestive heart failure Preserved LV systolic function ejection fraction greater than 55% Mild RV enlargement Left atrial enlargement, moderate Previewed by: Dr. Andrew Rocha MD (Electronically Signed) Final Date: 01 November 2023 15:30
[2023-11-04] MEDS ORDERED: ERGOCALCIFEROL 1,250 MCG (50,000 IU) CAPSULE PO SCH (13:08)
== END 2023-11-01 14:21 | disposition home or self-care (01) ==
LOC: EC 18:51 → 6NMEDSUR 23:58 → 1SOBS 10-31 15:35
PROVIDERS: ADMIT Hospitalist; ATTEND Hospitalist
DX: R27.0 Ataxia, unspecified (principal); R53.1 Weakness; E87.5 Hyperkalemia; R05.9 Cough, unspecified; I95.1 Orthostatic hypotension; I25.10 Atherosclerotic heart disease of native coronary artery without angina pectoris; J44.9 Chronic obstructive pulmonary disease, unspecified; I10 Essential (primary) hypertension; F32.A Depression, unspecified; F41.9 Anxiety disorder, unspecified; Z86.73 Personal history of transient ischemic attack (TIA), and cerebral infarction without residual deficits; Z87.891 Personal history of nicotine dependence; Z95.5 Presence of coronary angioplasty implant and graft; Z96.643 Presence of artificial hip joint, bilateral; Z79.899 Other long term (current) drug therapy; Z79.82 Long term (current) use of aspirin; Z79.02 Long term (current) use of antithrombotics/antiplatelets; Z11.52 Encounter for screening for COVID-19
CPT/HCPCS: 96365; 99285; 36415; 93005; 93306; 85379; 83880; 80053 ×2; 85652; 84484; 85025 ×2; 85610; 86140; 81001; 80306; 87086; 84145; 87636; 71046; 93880; 70450; G0378 ×4; J0696 ×2